=== PATIENT | male | born 1980 | race Caucasian/White ===

== ENCOUNTER 2018-02-21 19:22 | Inpatient (IN) | payer SELFPAY ==
[~2018-02-21] VITALS: Ht 188 cm; Wt 92.0 kg
[~2018-02-21 19:22] MED LIST: DEXAMETHASONE SOD PHOS 4 MG/ML VIAL IV ONE; LIDOCAINE HCL 1% PF 5 ML SYRINGE OTHER ONE; ONDANSETRON HCL 4 MG/2 ML VIAL IV ONE; PHENYLEPH/NS 1000 MCG/10 ML SYR IV ONE; PROPOFOL 200 MG/20 ML AMP IV ONE; SUCCINYLCHOLINE CHLORIDE 100 MG/5 ML SYRINGE IV PUSH ONE
[2018-02-21] MEDS ORDERED: ONDANSETRON HCL 4 MG/2 ML VIAL ONE (19:26)
[2018-02-21] MEDS ORDERED: DIPHTH/TETANUS/ACEL PERTUSSIS (BOOSTER) 0.5 ML VIAL/PFS IM ONE ×2 (19:26→20:30)
[2018-02-21] MEDS ORDERED: ceFAZolin 2 GM PREMIX 50 ML ONE (19:26)
[2018-02-21 19:30] VITALS: O2SAT 100
[2018-02-21] MEDS ORDERED: PROPOFOL 200 MG/20 ML AMP ONE (19:30)
[2018-02-21 19:48] LABS: AUTOMATED NEUTROPHIL # 2.5 TH/MM3 (1.8-7.7); BASOPHIL % 0.8 % (0.0-2.0); EOSINOPHIL # 0.1 TH/MM3 (0-0.4); EOSINOPHIL % 0.9 % (0.0-4.0); HEMATOCRIT 37.7 % (39.0-51.0); HEMOGLOBIN 12.9 GM/DL (13.0-17.0); LYMPH % 44.8 % (9.0-44.0); LYMPHOCYTE # 2.6 TH/MM3 (1.0-4.8); MEAN CELL VOLUME 83.3 FL (80.0-100.0); MEAN CORPUSCULAR HEMOGLOBIN 28.6 PG (27.0-34.0); MEAN CORPUSCULAR HGB CONC 34.3 % (32.0-36.0); MEAN PLATELET VOLUME 8.2 FL (7.0-11.0); MONO % 10.7 % (0.0-8.0); MONOCYTE # 0.6 TH/MM3 (0-0.9); NEUT % 42.8 % (16.0-70.0); PLATELET COUNT 163 TH/MM3 (150-450); RED BLOOD COUNT 4.53 MIL/MM3 (4.50-5.90); RED CELL DISTRIBUTION WIDTH 13.2 % (11.6-17.2); WHITE BLOOD COUNT 5.8 TH/MM3 (4.0-11.0)
[2018-02-21] MEDS ORDERED: IOHEXOL 350 MG/ML 10 ML VIAL (for RAD DIAG) IVCONTRAST ONE (19:49)
[2018-02-21] MEDS ORDERED: SODIUM CHLOR 0.9% 1000 ML INJ 1,000 ML IV SCH ×2 (19:49→20:30)
--- NOTE | 2018-02-21 19:54 | PD ---
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 The patient's only complaint at this time is severe left ankle pain. The patient was noted to have deformity, loss of sensation, and inability to move the left foot on initial arrival of ambulance services. In route to this facility the patient complained of 10 out of 10 pain and was given an total 10 mg of morphine IV in separate doses. The patient then in route to this facility had a return of sensation to his toes and was able to move his toes. The patient denies hitting his head or losing consciousness. He denies having any neck pain, paresthesias in his other extremities, or weakness of his other extremities. The patient arrives by ambulance services without a backboard in place and no cervical collar on. Cervical collar was applied in the trauma bay. The patient denies having any chest pain or shortness of breath. The patient denies having any abdominal pain. The patient is unsure when his tetanus was last updated. [facility] Past Medical History Narrative Medical The patient's past medical history is reportedly none. Past Surgical History Narrative Surgical The patient's past surgical history is reportedly none. Social History Alcohol Use: No Tobacco Use: Yes (1 pack per day) Substance Use: No Allergies-Medications (Allergen,Severity, Reaction): Coded Allergies: No Known Allergies (Unverified , 02/21/18) Comments The patient denies having any known allergies to medications. Narrative Medication The patient denies taking any medications. Review of Systems Except as stated in HPI: all other systems reviewed are Neg Eyes: No: Visual changes HENT: No: Headaches, Neck Stiffness, Neck Pain Cardiovascular: No: Chest Pain or Discomfort, Dyspnea on exertion Respiratory: No: Shortness of Breath Gastrointestinal: No: Nausea, Vomiting, Abdominal Pain Musculoskeletal: Positive: Myalgias, Arthralgias, Limited ROM, Edema, Pain Skin: No Rash Neurologic: Positive: Focal Abnormalities (Decreased movement in the left foot) , Sensory Disturbance, No: Weakness, Change in Mentation, Slurred Speech Endocrine: No: Polydipsia Physical Exam Narrative General: The patient is a well-developed well-nourished male, uncomfortable appearing on arrival, intermittently screaming related to left ankle pain. The patient is brought in on a back board in full c-spine immobilization by emergency services. Head and Neck exam: Head is normocephalic atraumatic. No facial bone tenderness or increased facial bone mobility noted on palpation. Eyes: EOMI, pupils are equal round and reactive to light. Nose: Midline septum with pink mucous membranes Mouth: Dentition is poor throughout his mouth with multiple areas of dental decay. Moist mucus membranes. Posterior oropharynx is not erythematous. No tonsillar hypertrophy. Uvula midline. Airway patent. Neck: The patient has no spinous process tenderness to palpation. No step-off or crepitus. No erythema or ecchymosis. However, the patient has a distracting injury related to his left ankle, therefore a cervical collar was applied in the trauma bay. No tracheal deviation. The trachea appears midline. Cardiovascular: Regular rate and rhythm without murmurs, gallops, or rubs. No pulse deficit to the extremities on simultaneous auscultation and palpation of his radial artery. Lungs: Clear to auscultation bilaterally. No wheezes, rhonchi, or rales. No chest wall tenderness to palpation. No erythema or ecchymosis noted. No crepitus , step off, or flail segment noted. Abdomen: Soft, without tenderness to palpation in all 4 quadrants of the abdomen. No guarding, rebound, or rigidity. No erythema or ecchymosis noted. Extremities: No instability or pain noted on pelvic rock. No clubbing, cyanosis , or edema. 2+ pulses in all 4 extremities. No extremity tenderness or deformity noted on palpation or passive/ active range of motion, except in the area of interest the left ankle, the patient is noted to have an open wound with a piece of bone protruding through a lateral wound on the left ankle. There is skin tenting noted. There is deformity of the left ankle with severe swelling. The dorsalis pedis pulse was not able to be palpated. The patient had dopplerable pulse. The patient had a prolonged capillary refill initially at 4 seconds in that left foot the patient is able to move the toes of the left foot. He reports having tingling sensations in his toes. Back: No spinous process tenderness to palpation. No stepoff or crepitus noted. No costovertebral angle tenderness to palpation. No erythema or ecchymosis. Neurologic Exam: Cranial nerves 2-12 were intact on exam. Strength is 5/5 in all 4 extremities. No sensory deficits noted. The patient is oriented to person , place, time, and situation. Skin Exam: No rash noted. Intact skin that is warm and dry. Data Data Orders Orders Fentanyl Inj (Fentanyl Inj) (02/21/18 19:26) Cefazolin 2 Gm Premix (Ancef 2 Gm Premix (02/21/18 19:) Ondansetron Inj (Zofran Inj) (02/21/18:) I-Stat Profile (02/21/18 19:24) Complete Blood Count With Diff (02/21/18 19:24) Prothrombin Time / Inr (Pt) (02/21/18:24) Act Partial Throm Time (Ptt) (02/21/18 19:24) Type And Screen (02/21/18 19:24) Fibrinogen (02/21/18 19:24) Urinalysis - C+S If Indicated (02/21/18 19:24) Drug Screen, Random Urine (02/21/18 19:24) Chest, Single Ap (02/21/18 19:24) Pelvis, Ap Only (Routine) (02/21/18 19:24) Ct Brain W/O Iv Contrast(Rout) (02/21/18 19:24) Ct Cerv Spine W/O Contrast (02/21/18 19:24) Ct Abd/Pel W Iv Contrast(Rout) (02/21/18 19:24) Ct Thorax/ Chest W Iv Contrast (02/21/18 19:24) Iv Access Insert/Monitor (02/21/18 19:24) Ecg Monitoring (02/21/18 19:24) Oximetry (02/21/18 19:24) Oxygen Administration (02/21/18 19:24) Ed Poc Ultrasound (02/21/18 19:24) Ankle, Limited (Ap&Lat) (02/21/18 ) Ugph-Vav-Ksyysb (Booster) Inj (Boostrix (02/21/18 19:26) Propofol 200 Mg/20 Ml Inj (Diprivan 200 (02/21/18 19:30) Ankle, Limited (Ap&Lat) (02/21/18 ) Ct Thor Spine W Iv Contrast (02/21/18 19:44) Ct Lumb Spine W Iv Contrast (02/21/18 19:44) Admit To Inpatient (02/21/18 ) Vital Signs (Adult) NICCI.QSHIFT (02/21/18 19:49) Intake + Output NICCI.Q8H (02/21/18 19:49) Neuro Checks NICCI.Q4H (02/21/18 19:49) Activity Bed Rest (02/21/18 19:49) Diet Npo (02/22/18 Breakfast) Scd / Fuentes / Foot Pump NICCI.QSHIFT (02/21/18 19:49) Instruction (02/21/18 19:49) Complete Blood Count With Diff (02/22/18 06:00) Comprehensive Metabolic Panel (02/22/18 06:00) Sodium Chlor 0.9% 1000 Ml Inj (Ns 1000 M (02/21/18 19:49) Sodium Chloride 0.9% Flush (Ns Flush) (02/21/18 20:00) Morphine Inj (Morphine Inj) (02/21/18 20:00) Acetamin-Hydrocod 325-5 Mg ([place] 5-325 (02/21/18 20:00) Acetamin-Hydrocod 325-5 Mg ([place] 5-325 (02/21/18 20:00) Enalaprilat Inj (Vasotec Inj) (02/21/18 20:00) Ondansetron Inj (Zofran Inj) (02/21/18 20:00) Pantoprazole Inj (Protonix Inj) (02/21/18 20:00) Magnesium Hydroxide Liq (Milk Of Magnesi (02/21/18 20:00) Consult Orthopedic (02/21/18 ) ^ Initiate Protocol (02/21/18 19:49) Instruction (02/21/18 19:49) Misc Nursing Information (02/21/18 20:00) Chlorhexidine 2% Cloth (Chlorhexidine 2% (02/22/18 04:00) Chlorhexidine 2% Cloth (Chlorhexidine 2% (02/21/18 20:00) Mrsa Pcr Surveillance (02/21/18 19:49) Inpatient Certification (02/21/18 ) Consult Zulema Gts (02/21/18 ) (Hub Use Only)Inp Phy Cons/Ref (02/21/18 ) Admit Order (Ed Use Only) (02/21/18 20:00) Labs Laboratory Tests Test 02/21/18 19:24 02/21/18 19:27 White Blood Count 5.8 TH/MM3 Red Blood Count 4.53 MIL/MM3 Hemoglobin 12.9 GM/DL Hematocrit 37.7 % Mean Corpuscular Volume 83.3 FL Mean Corpuscular Hemoglobin 28.6 PG Mean Corpuscular Hemoglobin Concent 34.3 % Red Cell Distribution Width 13.2 % Platelet Count 163 TH/MM3 Mean Platelet Volume 8.2 FL Neutrophils (%) (Auto) 42.8 % Lymphocytes (%) (Auto) 44.8 % Monocytes (%) (Auto) 10.7 % Eosinophils (%) (Auto) 0.9 % Basophils (%) (Auto) 0.8 % Neutrophils # (Auto) 2.5 TH/MM3 Lymphocytes # (Auto) 2.6 TH/MM3 Monocytes # (Auto) 0.6 TH/MM3 Eosinophils # (Auto) 0.1 TH/MM3 Basophils # (Auto) 0.0 TH/MM3 CBC Comment DIFF FINAL Differential Comment MDM Medical Decision Making Medical Screen Exam Complete: Yes Emergency Medical Condition: Yes Medical Record Reviewed: Yes Differential Diagnosis Intracranial trauma, versus cervical spine trauma, versus intrathoracic trauma, versus intra-abdominal trauma, versus pelvis injury, versus T spine injury, versus L-spine injury, versus left ankle dislocation, versus left ankle fracture with dislocation, versus vascular injury, versus nerve injury of the left ankle and foot Narrative Course During the course of the patient's emergency department visit, the patient's history, examination, and differential diagnosis were reviewed with the patient. The patient was placed on a acute care certified nursing assistant with oximetry and frequent blood pressure monitoring. This patient was called as a level 1 trauma alert prior to arrival by ambulance services. Dr. Pond in the trauma surgeon was notified at 1900 regarding this patient's pending arrival. He was available at the bedside in the trauma bay to assist the patient with me when the patient arrived. The patient had large-bore IVs placed in bilateral upper extremities. An i-STAT with creatinine was ordered, chest x-ray, pelvis x-ray, left ankle x-ray was ordered. The patient was initially provided fentanyl 50 mcg IV 1, Zofran 4 mg IV, Ancef 2 g IV, and normal saline 1 L IV fluid bolus. A bedside E fast ultrasound was done by me. The patient had no evidence of pericardial effusion, hemoperitoneum, or pneumothorax. The patient's laboratory studies were reviewed and remarkable for an i-STAT with creatinine revealed a hemoglobin of 11.9, creatinine 1.1. Radiology studies were reviewed and remarkable for a chest x-ray that showed no acute abnormality. Pelvis x-ray showed no acute abnormality. Left ankle x-ray revealed a comminuted fracture dislocation of the left ankle. The patient verbally consented to procedural sedation for realignment of his left ankle and placement in a splint. The patient was provided propofol 40 mg IV. Traction was applied to the patient's left foot for better alignment of the fracture fragments. A splint was applied by the time study technologist. The patient was given an additional 25 mcg of fentanyl IV for pain. The CT scan of the head, neck, thorax, abdomen and pelvis, T-spine, L-spine was ordered. The patient was accompanied to CT by the trauma surgeon who accepted care of the patient, Dr. Pond. Dr. Pond also spoke to the physician telecom assistant for Dr. Arias regarding this patient's open fracture of the left ankle. The patient's results were discussed with the patient, including the plan of care. I explained that further testing and/ or monitoring is indicated based on the patient's history, examination, and/ or laboratory findings. Therefore, I recommended admission for additional evaluation. The patient expressed understanding and was agreeable with this plan. The patient was admitted to the hospital in guarded condition and sent to a bed under the care of the trauma service. Procedures Procedure Narrative Emergency department E-FAST was performed with patient consent. The curvilinear probe was used in the right upper quadrant/Morison's pouch, suprapubic, left upper quadrant/spleenorenal space, epigastric, parasternal long axis and anterior bilateral chest wall. There was no evidence of peritoneal free fluid, pericardial effusion, or pneumothorax. Physician Communication Physician Communication The patient's case including history, pertinent physical examination findings, and laboratory studies were discussed with Dr. Pond. It was agreed that the patient would be admitted to the trauma service. Diagnosis Primary Impression: Injury resulting from fall from height Additional Impression: Open left ankle fracture Admitting Information Admitting Physician Requests: Admit Ana Lilia Redman MD Feb 21, 2018 19:54
[2018-02-21] MEDS ORDERED: ONDANSETRON HCL 4 MG/2 ML VIAL IV PUSH PRN (20:00)
[2018-02-21] MEDS: PANTOPRAZOLE SODIUM 40 MG VIAL IVP SCH (20:00)
[2018-02-21] MEDS ORDERED: ACETAMINOPHEN/HYDROcodone 325 MG/5 MG TAB PO PRN ×2 (20:00)
[2018-02-21] MEDS ORDERED: MAGNESIUM HYDROXIDE SUSP 30 ML CUP PO PRN (20:00)
[2018-02-21] MEDS ORDERED: MORPHINE SULFATE 4 MG/ML INJ IV PUSH PRN (20:00)
[2018-02-21] MEDS ORDERED: CHLORHEXIDINE GLUCONATE 2 % 1 PACK (2 CLOTHS) TOP PRN (20:00)
[2018-02-21] MEDS ORDERED: ENALAPRILAT 1.25 MG/ML VIAL IV PUSH PRN (20:00)
[2018-02-21] MEDS ORDERED: NURSING INFORMATION XX SCH (20:00)
--- NOTE | 2018-02-21 20:04 | RADRPT ---
EXAM DATE/TIME: 02/21/2018 19:45 [facility] COMPARISON: No previous studies available for comparison. INDICATIONS : Trauma alert, patient fell 16 feet off ladder. RADIATION DOSE: 56.66 CTDIvol (mGy) ; Tabletop CT Head MEDICAL HISTORY : Non-responsive. SURGICAL HISTORY : Non-responsive. ENCOUNTER: Initial ACUITY: 1 day PAIN SCALE: Non-responsive LOCATION: cranial TECHNIQUE: Multiple contiguous axial images were obtained of the head. Using automated exposure control and adj ustment of the mA and/or kV according to patient size, radiation dose was kept as low as reasonably a chievable to obtain optimal diagnostic quality images. DICOM format image data is available electro nically for review and comparison. FINDINGS: CEREBRUM: The ventricles are normal for age. No evidence of midline shift, mass lesion, hemorrhage or acute in farction. No extra-axial fluid collections are seen. POSTERIOR FOSSA: The cerebellum and brainstem are intact. The 4th ventricle is midline. The cerebellopontine angle i s unremarkable. EXTRACRANIAL: The visualized portion of the orbits is intact. SKULL: The calvaria is intact. No evidence of skull fracture. CONCLUSION: Negative noncontrast head CT. Dutch Baez MD on February 21, 2018 at 20:01 Board Certified Radiologist. This report was verified electronically.
--- NOTE | 2018-02-21 20:06 | RADRPT ---
EXAM DATE/TIME: 02/21/2018 19:45 [facility] COMPARISON: No previous studies available for comparison. INDICATIONS : Trauma alert, patient fell 16 feet off ladder. RADIATION DOSE: 19.39 CTDIvol (mGy) MEDICAL HISTORY : Non-responsive. SURGICAL HISTORY : Fusion, cervical. ENCOUNTER: Initial ACUITY: 1 day PAIN SCALE: Non-responsive LOCATION: neck TECHNIQUE: Volumetric scanning of the cervical spine was performed. Multiplanar reconstructions in the sagittal, coronal and oblique axial planes were performed. Using automated exposure control and adjustment o f the mA and/or kV according to patient size, radiation dose was kept as low as reasonably achievable to obtain optimal diagnostic quality images. DICOM format image data is available electronically f or review and comparison. FINDINGS: No fracture or subluxation of the cervical spine. Vertebral bodies have normal height. Mild disc space narrowing with circumferential disc osteophyte complex and left greater than right un covertebral and facet osteoarthritis seen at C3/C4. There is mild left foraminal stenosis at this lev el. Previous discectomy and fusion procedure with interbody and anterior instrumentation at C5/C6 and C6/ C7, both levels appearing solidly fused. CONCLUSION: No fracture or subluxation of the cervical spine. Surgical and degenerative changes as above. Dutch Baez MD on February 21, 2018 at 20:02 Board Certified Radiologist. This report was verified electronically.
--- NOTE | 2018-02-21 20:07 | RADRPT ---
EXAM DATE/TIME: 02/21/2018 19:49 [facility] COMPARISON: No previous studies available for comparison. INDICATIONS : Trauma alert, patient fell 16 feet off ladder. IV CONTRAST: 100 cc Omnipaque 350 (iohexol) IV ; Cumulative dose for multiple exams. RADIATION DOSE: 15.18 CTDIvol (mGy) ; Combined studies - Thorax/Abdomen/Pelvis MEDICAL HISTORY : Non-responsive. SURGICAL HISTORY : Non-responsive. ENCOUNTER: Initial ACUITY: 1 day PAIN SCALE: Non-responsive LOCATION: chest TECHNIQUE: Volumetric scanning of the chest was performed. Using automated exposure control and adjustment of t he mA and/or kV according to patient size, radiation dose was kept as low as reasonably achievable to obtain optimal diagnostic quality images. DICOM format image data is available electronically for review and comparison. Follow-up recommendations for detected pulmonary nodules are based at a minimum on nodule size and pa tient risk factors according to Fleischner Society Guidelines. FINDINGS: LUNGS: There is no consolidation or pneumothorax. No concerning pulmonary nodule is visualized. PLEURA: There is no pleural thickening or pleural effusion. MEDIASTINUM: The heart and great vessels demonstrate no acute abnormality. There is no mediastinal or hilar lymph adenopathy. AXILLAE: Within normal limits. No lymphadenopathy. SKELETAL: Within normal limits for patient age. MISCELLANEOUS: The visualized upper abdominal organs demonstrate no acute abnormality. CONCLUSION: No acute abnormality demonstrated. Dutch Baez MD on February 21, 2018 at 20:04 Board Certified Radiologist. This report was verified electronically.
--- NOTE | 2018-02-21 20:08 | RADRPT ---
EXAM DATE/TIME: 02/21/2018 19:22 [facility] COMPARISON: No previous studies available for comparison. INDICATIONS : Trauma alert. Fall from ladder. MEDICAL HISTORY : Unobtainable. SURGICAL HISTORY : Unobtainable. ENCOUNTER: Initial ACUITY: 1 day PAIN SCORE: Non-responsive. LOCATION: Pelvis. FINDINGS: A single frontal view of the pelvis demonstrates no evidence of fracture. The bony pelvic ring is in tact. Bony mineralization is normal. The soft tissues are intact. CONCLUSION: No evidence of pelvic fracture. Dutch Baez MD on February 21, 2018 at 20:06 Board Certified Radiologist. This report was verified electronically.
--- NOTE | 2018-02-21 20:08 | RADRPT ---
EXAM DATE/TIME: 02/21/2018 19:22 [facility] COMPARISON: No previous studies available for comparison. INDICATIONS : Trauma alert. Fall from ladder. MEDICAL HISTORY : Unobtainable. SURGICAL HISTORY : Unobtainable. ENCOUNTER: Initial ACUITY: 1 day PAIN SCORE: Non-responsive. LOCATION: Bilateral chest FINDINGS: A single view of the chest demonstrates the lungs to be symmetrically aerated without evidence of mas s, infiltrate or effusion. The cardiomediastinal contours are unremarkable. Osseous structures are intact. CONCLUSION: No acute abnormality demonstrated. Dutch Baez MD on February 21, 2018 at 20:05 Board Certified Radiologist. This report was verified electronically.
--- NOTE | 2018-02-21 20:09 | RADRPT ---
EXAM DATE/TIME: 02/21/2018 19:22 [facility] COMPARISON: No previous studies available for comparison. INDICATIONS : Trauma alert. Fall from ladder. MEDICAL HISTORY : Unobtainable. SURGICAL HISTORY : Unobtainable. ENCOUNTER: Initial ACUITY: 1 day PAIN SCORE: Non-responsive. LOCATION: Left ankle. FINDINGS: Extremely comminuted intra-articular fractures are seen of the distal left tibia and fibula. There is medial angulation deformity. I don't convincingly see significant subluxation. CONCLUSION: Severely comminuted intra-articular fractures of the distal left tibia and fibula with medial angulat ion deformity. Dutch Baez MD on February 21, 2018 at 20:06 Board Certified Radiologist. This report was verified electronically.
--- NOTE | 2018-02-21 20:10 | RADRPT ---
EXAM DATE/TIME: 02/21/2018 19:22 [facility] COMPARISON: No previous studies available for comparison. INDICATIONS : Post reduction left ankle. MEDICAL HISTORY : None. SURGICAL HISTORY : None. ENCOUNTER: Subsequent ACUITY: 1 day PAIN SCORE: Non-responsive. LOCATION: Left ankle. FINDINGS: Interval closed reduction and splinting. Extremely comminuted intra-articular fractures are seen of t he distal left tibia and fibula. Decreased medial angulation deformity, now mild. CONCLUSION: Interval closed reduction and splinting. Markedly comminuted intra-articular fractures of the distal left tibia and fibula again noted. Dutch Baez MD on February 21, 2018 at 20:07 Board Certified Radiologist. This report was verified electronically.
[2018-02-21 20:12] LABS: INTERNATIONAL NORMALIZED RATIO 1.1 RATIO; PROTHROMBIN TIME - PATIENT 10.8 SEC (9.8-11.6)
--- NOTE | 2018-02-21 20:12 | RADRPT ---
EXAM DATE/TIME: 02/21/2018 19:49 [facility] COMPARISON: No previous studies available for comparison. INDICATIONS : Trauma alert, patient fell 16 feet off ladder. IV CONTRAST: 100 cc Omnipaque 350 (iohexol) IV ; Cumulative dose for multiple exams. ORAL CONTRAST: No oral contrast ingested. RADIATION DOSE: 15.18 CTDIvol (mGy) ; Combined studies - Thorax/Abdomen/Pelvis MEDICAL HISTORY : Non-responsive. SURGICAL HISTORY : Non-responsive. ENCOUNTER: Initial ACUITY: 1 day PAIN SCALE: Non-responsive LOCATION: abdomen/pelvis TECHNIQUE: Volumetric scanning of the abdomen and pelvis was performed. Using automated exposure control and ad justment of the mA and/or kV according to patient size, radiation dose was kept as low as reasonably achievable to obtain optimal diagnostic quality images. DICOM format image data is available electro nically for review and comparison. FINDINGS: LOWER LUNGS: The visualized lower lungs are clear. LIVER: Homogeneous density without lesion. There is no dilation of the biliary tree. No calcified gallston es. SPLEEN: Normal size without lesion. PANCREAS: Within normal limits. KIDNEYS: Normal in size and shape. 2 mm nonobstructing stone left lower pole. There is no mass, obstructive s tone or hydronephrosis. ADRENAL GLANDS: Within normal limits. VASCULAR: There is no aortic aneurysm. BOWEL/MESENTERY: The stomach, small bowel, and colon demonstrate no acute abnormality. There is no free intraperitone al air or fluid. ABDOMINAL WALL: Within normal limits. RETROPERITONEUM: There is no lymphadenopathy. BLADDER: No wall thickening or mass. REPRODUCTIVE: Within normal limits. INGUINAL: There is no lymphadenopathy or hernia. MUSCULOSKELETAL: No fracture or other acute abnormality of the visualized osseous structures. CONCLUSION: Negative trauma CT of the abdomen and pelvis. Tiny nonobstructing stone of the left kidney incidental ly noted. Dutch Baez MD on February 21, 2018 at 20:09 Board Certified Radiologist. This report was verified electronically.
[2018-02-21] MEDS ORDERED: fentaNYL CITRATE 250 MCG/5 ML AMP ONE (20:17)
[2018-02-21] MEDS ORDERED: GENTAMICIN SULFATE 80 MG/2 ML VIAL ONE (20:25)
[2018-02-21] MEDS ORDERED: VANCOMYCIN HCL 1000 MG VIAL ONE (20:25)
--- NOTE | 2018-02-21 20:26 | RADRPT ---
EXAM DATE/TIME: 02/21/2018 19:49 [facility] COMPARISON: No previous studies available for comparison. INDICATIONS : Trauma alert, patient fell 16 feet off ladder. IV CONTRAST: 100 cc Omnipaque 350 (iohexol) IV ; Cumulative dose for multiple exams. RADIATION DOSE: ; Reconstructed from previous dataset, no dose MEDICAL HISTORY : Non-responsive. SURGICAL HISTORY : Non-responsive. ENCOUNTER: Initial ACUITY: 1 day PAIN SCALE: Non-responsive LOCATION: Paraspinal TECHNIQUE: Volumetric scanning of the lumbar spine was performed. Multiplanar reconstructions in the sagittal, coronal and oblique axial planes were performed. Using automated exposure control and adjustment of the mA and/or kV according to patient size, radiation dose was kept as low as reasonably achievable t o obtain optimal diagnostic quality images. DICOM format image data is available electronically for review and comparison. FINDINGS: CONUS MEDULLARIS: Normal. PARASPINAL SOFT TISSUES: Normal. LUMBAR CORD: Normal. DURAL SAC: Normal. L1-L2: The disc, uncovertebral joints, central canal, foramina, and facets are normal. L2-L3: The disc, uncovertebral joints, central canal, foramina, and facets are normal. L3-L4: The disc, uncovertebral joints, central canal, foramina, and facets are normal. L4 L5 CONCLUSION: Intact lumbar spine. Mild degenerative changes at L4/L5 and L5/S1. Dutch Baez MD on February 21, 2018 at 20:23 Board Certified Radiologist. This report was verified electronically.
--- NOTE | 2018-02-21 20:28 | RADRPT ---
EXAM DATE/TIME: 02/21/2018 19:49 [facility] COMPARISON: No previous studies available for comparison. INDICATIONS : Trauma alert, patient fell 16 feet off ladder. IV CONTRAST: 100 cc Omnipaque 350 (iohexol) IV ; Cumulative dose for multiple exams. RADIATION DOSE: ; Reconstructed from previous dataset, no dose MEDICAL HISTORY : Non-responsive. SURGICAL HISTORY : Non-responsive. ENCOUNTER: Initial ACUITY: 1 day PAIN SCALE: Non-responsive LOCATION: Paraspinal TECHNIQUE: Volumetric scanning of the thoracic spine was performed. Multiplanar reconstructions in the sagittal , coronal and oblique axial planes were performed. Using automated exposure control and adjustment o f the mA and/or kV according to patient size, radiation dose was kept as low as reasonably achievable to obtain optimal diagnostic quality images. DICOM format image data is available electronically fo r review and comparison. FINDINGS: Mild dextroconvex curvature centered around T8/T9. No fracture or subluxation. Vertebral bodies have normal height. There is no cortical break or trabecular disruption. Very mild bilateral costovertebral and facet osteoarthritis seen at essentially all levels. There is also slight disc space narrowing and anterolateral osseous ridging throughout. No perceptible foramin al or spinal stenosis. No evidence of an acute disc herniation. CONCLUSION: Intact thoracic spine. Scoliosis and mild degenerative changes as above. Dutch Baez MD on February 21, 2018 at 20:24 Board Certified Radiologist. This report was verified electronically.
[2018-02-21] MEDS ORDERED: ceFAZolin 2 GM/DEX PREMIX 50 ML IV ONE (20:30)
[2018-02-21] MEDS ORDERED: ceFAZolin 2 GM in NS 100 ML IV ONE (20:30)
[2018-02-21] MEDS ORDERED: GENTAMICIN/SOD CHL 80 MG/100 ML IV ONE (20:30)
[2018-02-21] MEDS ORDERED: HYDROmorphone HCL PF 2 MG/ML VIAL ONE ×3 (20:48→22:38)
[2018-02-21] MEDS ORDERED: Post-op Orders (for Pharmacy) XX ONE (21:45)
[2018-02-21] MEDS ORDERED: ACETAMINOPHEN/HYDROcodone 325 MG/10 MG TAB PO PRN (21:45)
--- NOTE | 2018-02-21 21:50 | PD.OP ---
cc: Jason Pinon MD Operative Report Date of Surgery: Feb 21, 2018 Preoperative Diagnosis: Open left distal tibia and fibula fractures Postoperative Diagnosis: Procedure: Irrigation and debridement of open left distal tibia and fibular fractures, reduction of left tibia and fibular fractures, external fixation left ankle Anesthesia: General Surgeon: Jason Pinon Shooting Gallery Operator(s): Mookie Pretty PA-C The surgical procedure was assisted by my physician assistant housekeeping manager. My P.A. presence was necessary throughout this case for the manipulation and positioning of the surgical extremity. My P.A. was assisting me throughout the duration of this procedure. The skill set of a physician assistant housekeeping manager was medically necessary to complete this procedure. During the surgical case the surgical scheduler was working at the back table and the physician assistant housekeeping manager was directly assisting me. Operation and Findings: Implants used: Orthofix Details of procedure: This patient sustained an injury from a fall resulting in unstable open fractures of the left distal tibia and fibula. Patient was seen and evaluated preoperatively and found to have too much swelling to proceed with open reduction internal fixation. Risk and benefits of surgery were discussed in depth with patient and informed consent was confirmed. Surgical site was marked. Patient was brought to operating room and placed on the OR table. Patient was given IV sedation and GETA. Patient received IV antibiotics and timeout procedure was performed. Operative leg was prepped with alcohol followed by Hibiclens and draped in the usual sterile fashion.resulting in left tibia-fibula fractures. Timeout procedure was performed. The procedure began with irrigation debridement of open fracture. There was a 1 cm opening over the fibular fractures with bone exposed. This laceration was extended proximally and distally. There was a small amount of visible contamination in the wound. Curettes and rongeurs were used to debride soft tissue and bone. All foreign material was carefully excised. After thorough debridement of the open fibula fracture, the wound was thoroughly irrigated with 3 L of sterile saline. At this point the wound appeared to be very clean. Next, attention was turned towards placement of external fixation. Two percutaneous incisions were made over the tibia. Pin sites were pre-drilled. Orthofix were placed from anterior to posterior in the tibia shaft. An additional transfixion pin was placed through the calcaneus. Pins were also placed in the first and fifth metatarsals. An external fixator was now constructed. Fluoroscopy was used to confirm appropriate pin placement Next attention was turned to traction with manipulation of the leg. The fracture was manipulated under fluoroscopy. Excellent reduction was achieved. With the fracture held in reduced position, the external fixator was tightened. Fluoroscopy confirmed a well-placed external fixation with well-aligned fractures. Sterile dressings were applied. The patient was awakened and transferred to Recovery in stable condition. The soft tissue was reevaluated. Patient did have swelling around the ankle and calf but compartments were soft and compressible with no signs of compartment syndrome. Jason Pinon MD Feb 21, 2018 21:50
[2018-02-21] MEDS: KETOROLAC TROMETHAMINE 30 MG/ML (IVP) VIAL IVP SCH (22:00)
[2018-02-21] MEDS ORDERED: ACETAMINOPHEN 1000 MG/100 ML 100 ML IV ONE ×2 (22:00→22:10)
[2018-02-21] MEDS ORDERED: *MEPERIDINE 25 MG INJ VIAL PERIprocedural Use ONLY ONE (22:05)
[2018-02-21] MEDS: LACTATED RINGER'S 1000 ML INJ 1,000 ML IV SCH (22:06)
--- NOTE | 2018-02-21 22:07 | RADRPT ---
EXAM DATE/TIME: 02/21/2018 21:36 [facility] COMPARISON: No previous studies available for comparison. INDICATIONS : External fixation of the left ankle. MEDICAL HISTORY : Non-responsive SURGICAL HISTORY : Non-responsive ENCOUNTER: Subsequent ACUITY: 1 day PAIN SCORE: Non-responsive. LOCATION: Left ankle FINDINGS: Interim external fixation of extremely comminuted intra-articular fractures of the distal left tibia and fibula. Alignment is improved, near-anatomic. CONCLUSION: External fixation of comminuted distal tibia and fibula fractures. Near-anatomic alignment. Dutch Baez MD on February 21, 2018 at 22:03 Board Certified Radiologist. This report was verified electronically.
[2018-02-21] MEDS ORDERED: *morphine SULFATE 8 MG/ML PERIprocedure ONLY ONE (22:14)
--- NOTE | 2018-02-21 22:27 | MB ---
cc: Jason Arias MD DATE: 02/21/2018 REASON FOR CONSULTATION: Open left distal tibia and fibula fractures CONSULTING PHYSICIAN: Juan Jose Roberts MD HISTORY OF PRESENT ILLNESS: This patient Dutch Paula is an approximately 38-year-old male who presented to the emergency room. He was working on scaffolding approximately 16 feet high. He lost his balance. 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 He landed on his left leg and ankle. He had immediate left ankle pain and deformity. He is unable to stand or ambulate. He presented to the Emergency Room where x-rays revealed comminuted left distal tibia and fibula fractures. There was an opening over the fibula with exposed bone. He has had a history of a cervical fusion. He denies any current neck pain. He does have some chronic ongoing neck pain. He denies loss of consciousness. Pain is worse with movement of his leg. PAST MEDICAL HISTORY: Illnesses: History of cervical fusion. PAST SURGICAL HISTORY: Cervical fusion. ALLERGIES: NO KNOWN DRUG ALLERGIES. MEDICATIONS: None. SOCIAL HISTORY: The patient smokes a pack a day. He denies alcohol or drug use. REVIEW OF SYSTEMS: The patient denies current headache, visual changes, neck pain, chest pain, shortness of breath, abdominal pain, nausea, vomiting, recent weight loss, fevers or chills, ____. Extremities he complains of severe left ankle pain. He does have intermittent chronic neck pain. FAMILY HISTORY: Noncontributory. PHYSICAL EXAMINATION: GENERAL: The patient is a thin 38-year-old male who is awake and alert. He appears to be in moderate discomfort. He appears well-developed, well-nourished. VITAL SIGNS: Please see emergency room flow sheet for complete list of the patient's vitals. This was reviewed. HEENT: Head: The patient is normocephalic. Pupils are equal. NECK: Soft, nontender. The trachea is in the midline. The patient is in a C-collar. ABDOMEN: Soft, nontender, nondistended. EXTREMITIES: Examination of bilateral upper extremities reveals no obvious pain or deformity with shoulder, elbow and wrist motion. He has intact sensation in all fingers. He has good cap refill all fingers. Skin is intact. Radial pulses are palpable. Examination of right leg reveals no pain with hip, knee or ankle motion. Skin is intact. Dorsalis pedis pulses palpable. Sensation is intact. Examination of left leg reveals no pain or tenderness of his hip or knee. He is diffusely tender around the ankle. There is obvious deformity of the ankle. There is a 1 cm opening over the distal fibula with exposed bone. Dorsalis pedis pulses palpable. He has good cap refill in his toes. LABORATORY DATA: The patient has a white blood cell count of 5.8, hematocrit of 37.7, platelet count of 163. INR of 1.1, BUN of 14, creatinine is 1.1. IMPRESSION: 1. Open left distal tibia and fibula fractures. 2. Smoking dependence. PLAN: Treatment options were discussed with the patient. At this point, I would recommend irrigation and debridement of open fracture, followed by reduction of distal tibia and fibula fractures with external fixation. The patient will need additional surgery for open reduction internal fixation of the distal tibia and fibula fractures, once soft tissue is improved. I explained to him that this is a severe injury for an ankle. His ankle will never be 100% normal after this injury. He will likely develop stiffness, pain and posttraumatic arthritis. All questions were answered. I will plan on surgery tonight. A mid-level provider in my office, nurse practitioner or PA, may see this patient on a follow-up basis and continue to implement the objective of this plan including: Starting or adjusting medications, injections of muscle, tendon, bursa or joints, cast application, orthotic or brace application, physical therapy, further radiographic studies including x-ray, MRI, CT, ultrasounds or bone scan, vascular studies, neurologic studies, or other specialist consultations, and proceeding with surgical management as appropriate. Jason Arias MD SUNG/rt , 09:54 PM , 10:26 PM
[2018-02-21] MEDS ORDERED: DO NOT ADM ANY ANTICOAGULANT DRUGS PRN (22:30)
[2018-02-21] MEDS ORDERED: *hydrOXYzine 25 MG VIAL PERIprocedural Use ONLY IM ONE (22:36)
[2018-02-21] MEDS ORDERED: HYDROmorphone HCL PF 2 MG/ML VIAL IV ONE (23:15)
[2018-02-22 00:15] VITALS: BP 136/72; PULSE 79; RESP 16; TEMP 97.6; O2SAT 97
[2018-02-22] MEDS: MORPHINE SULFATE 4 MG/ML INJ IV PUSH PRN ×5 (01:55→18:19)
--- NOTE | 2018-02-22 02:34 | RADRPT ---
EXAM DATE/TIME: 02/22/2018 02:10 [facility] COMPARISON: ANKLE LEFT LIMITED (AP&LAT), February 21, 2018, 19:22. INDICATIONS : Post operative left ankle. RADIATION DOSE: 16.51 CTDIvol (mGy) MEDICAL HISTORY : Non-responsive. SURGICAL HISTORY : Non-responsive. ENCOUNTER: Initial ACUITY: 1 day PAIN SCALE: 8/10 LOCATION: Left ankle TECHNIQUE: Volumetric scanning of the ankle was performed. Using automated exposure control and adjustment of t he mA and/or kV according to patient size, radiation dose was kept as low as reasonably achievable to obtain optimal diagnostic quality images. DICOM format image data is available electronically for review and comparison. FINDINGS: There is a severely comminuted fracture of the distal tibia with articular bone fragments displaced i nto the distal shaft. There is abnormal widening of the ankle joint. Fracture is displaced slightly d istally. There is also a comminuted distal fibular fracture mostly above the level of the ankle joint . There is probable small avulsion fracture of the anteromedial and posteromedial talus. CONCLUSION: 1. Severely comminuted intra-articular fracture of the distal tibia and also comminuted distal fibula r fracture. Small avulsion fractures of the talus laterally. Ricardo Álvarez MD on February 22, 2018 at 2:27 Board Certified Radiologist. This report was verified electronically.
[2018-02-22] MEDS: ceFAZolin 2 GM PREMIX 50 ML IV SCH ×3 (03:51→20:21)
[2018-02-22 04:00] VITALS: BP 122/70; PULSE 75; RESP 18; TEMP 97.3; O2SAT 100
[2018-02-22] MEDS ORDERED: CHLORHEXIDINE GLUCONATE 2 % 1 PACK (2 CLOTHS) TOP SCH (04:00)
[2018-02-22 04:44] LABS: BASOPHIL % 0.1 % (0.0-2.0); EOSINOPHIL % 0.1 % (0.0-4.0); HEMATOCRIT 34.5 % (39.0-51.0); HEMOGLOBIN 11.8 GM/DL (13.0-17.0); LYMPH % 6.7 % (9.0-44.0); LYMPHOCYTE # 0.5 TH/MM3 (1.0-4.8); MEAN CELL VOLUME 83.9 FL (80.0-100.0); MEAN CORPUSCULAR HEMOGLOBIN 28.7 PG (27.0-34.0); MEAN CORPUSCULAR HGB CONC 34.2 % (32.0-36.0); MEAN PLATELET VOLUME 8.9 FL (7.0-11.0); MONO % 5.4 % (0.0-8.0); MONOCYTE # 0.4 TH/MM3 (0-0.9); NEUT % 87.7 % (16.0-70.0); PLATELET COUNT 131 TH/MM3 (150-450); RED BLOOD COUNT 4.12 MIL/MM3 (4.50-5.90)
[2018-02-22 05:02] LABS: ALBUMIN 3.3 GM/DL (3.4-5.0); ALT (GPT) 31 U/L (12-78); AST (GOT) 18 U/L (15-37); BICARBONATE 26.5 MEQ/L (21.0-32.0); BLOOD UREA NITROGEN 12 MG/DL (7-18); CALCIUM 7.7 MG/DL (8.5-10.1); CHLORIDE 109 MEQ/L (98-107); CREATININE 1.06 MG/DL (0.60-1.30); GLOMERULAR FILTRATION RATE 60 ML/MIN (>89); GLUCOSE,RANDOM 129 MG/DL (74-106); SODIUM (NA) 143 MEQ/L (136-145)
[2018-02-22 05:04] LABS: ALKALINE PHOSPHATASE 54 U/L (45-117); TOTAL BILIRUBIN ADULT 0.3 MG/DL (0.2-1.0); TOTAL PROTEIN 5.9 GM/DL (6.4-8.2)
[2018-02-22] MEDS: KETOROLAC TROMETHAMINE 30 MG/ML (IVP) VIAL IVP SCH ×3 (06:42→20:22)
[2018-02-22] MEDS: GENTAMICIN 80 MG PREMIX 100 ML IV SCH ×3 (06:43→20:22)
--- NOTE | 2018-02-22 07:13 | PD.ORT.PN ---
Subjective Subjective Remarks POD 1 s/p I&D with application of exfix left ankle reports pain. resting comfortably currently Objective Vitals Vital Signs Date Time Temp Pulse Resp B/P (MAP) Pulse Ox O2 Delivery O2 Flow Rate FiO2 02/22/18 04:00 97.3 75 18 122/70 (87) 100 02/22/18 00:15 97.6 79 16 136/72 (93) 97 02/21/18 23:20 52 18 163/77 (105) 100 Nasal Cannula 3 02/21/18 23:00 67 18 138/75 (96) 100 Nasal Cannula 3 02/21/18 22:45 82 18 148/67 (94) 100 Nasal Cannula 3 02/21/18 22:30 86 18 156/72 (100) 100 Nasal Cannula 3 02/21/18 22:15 83 18 129/81 (97) 100 Nasal Cannula 3 02/21/18 22:02 98.1 93 18 131/70 (90) 97 Nasal Cannula 3 02/21/18 19:30 100 2.00 02/21/18 19:30 100 I/O 02/21/18 02/21/18 02/21/18 02/22/18 02/22/18 02/22/18 07:00 15:00 23:00 07:00 15:00 23:00 Intake Total 900 ml 560 ml Output Total 10 ml 600 ml Balance 890 ml -40 ml Intake Oral 560 ml IV Total 900 ml Output Urine Total 600 ml Estimated Blood Loss 10 ml # Voids 1 # Bowel Movements 0 Result Diagram: 02/22/18 0400 02/22/18 0400 Other Results Laboratory Tests Test 02/21/18 19:27 Prothromb Time International Ratio 1.1 RATIO Prothrombin Time 10.8 SEC (9.8-11.6) Imaging Last 24 hours Impressions [address] Spine CT 02/21/181943 Signed Impressions: Service Date/Time: Wednesday, February 21, 2018 19:49 - CONCLUSION: Intact thoracic spine. Scoliosis and mild degenerative changes as above. Dutch Baez MD Lumbar Spine CT 02/21/181943 Signed Impressions: Service Date/Time: Wednesday, February 21, 2018 19:49 - CONCLUSION: Intact lumbar spine. Mild degenerative changes at L4/L5 and L5/S1. Dutch Baez MD Pelvis X-Ray 02/21/181923 Signed Impressions: Service Date/Time: Wednesday, February 21, 2018 19:22 - CONCLUSION: No evidence of pelvic fracture. Dutch Baez MD Head CT 02/21/181923 Signed Impressions: Service Date/Time: Wednesday, February 21, 2018 19:45 - CONCLUSION: Negative noncontrast head CT. Dutch Baez MD Chest X-Ray 02/21/181923 Signed Impressions: Service Date/Time: Wednesday, February 21, 2018 19:22 - CONCLUSION: No acute abnormality demonstrated. Dutch Baez MD Chest CT 02/21/181923 Signed Impressions: Service Date/Time: Wednesday, February 21, 2018 19:49 - CONCLUSION: No acute abnormality demonstrated. Dutch Baez MD Cervical Spine CT 02/21/181923 Signed Impressions: Service Date/Time: Wednesday, February 21, 2018 19:45 - CONCLUSION: No fracture or subluxation of the cervical spine. Surgical and degenerative changes as above. Dutch Baez MD Abdomen/Pelvis CT 02/21/181923 Signed Impressions: Service Date/Time: Wednesday, February 21, 2018 19:49 - CONCLUSION: Negative trauma CT of the abdomen and pelvis. Tiny nonobstructing stone of the left kidney incidentally noted. Dutch Baez MD Objective Remarks LLE: +exfix. pin sites clean. traumatic wound shows evidence of drainage. nvi Assessment & Plan Assessment and Plan 1) Left Tibial Pilon and distal fibula fxs s/p Exfix and I&D - POD 1 -NWb -elevate -Ice -pin care BID -daily dressing changes of traumatic wound -swelling no appropriate for surgery at this time -will likely be 5-7 days before swelling appropriate -will continue to monitor Mookie Pretty/First Obey PIERCE Feb 22, 2018 07:13
[2018-02-22 08:00] VITALS: BP 119/69; PULSE 64; RESP 12; TEMP 97.6; O2SAT 99
[2018-02-22] MEDS: GABAPENTIN 300 MG CAP PO SCH ×3 (08:42→17:39)
[2018-02-22] MEDS: DOCUSATE SODIUM 50 MG/SENNA 8.6 MG TAB PO SCH ×2 (08:42→20:22)
[2018-02-22] MEDS: ENOXAPARIN SODIUM 40 MG/0.4 ML SYRINGE SQ SCH (08:43)
--- NOTE | 2018-02-22 11:46 | HHI.PR ---
Subjective Subjective Notes PTD: 1 Patient OOB in recliner chair. No distress noted. Patient states pain is "8-9/10." "The [place] does not help too much." Visitor at bedside asking, "can't you give him something else?" Patient wants to go home, since reversal of ex-fix will not be for another week due to swelling. Objective Vitals/I&O Vital Signs Date Time Temp Pulse Resp B/P (MAP) Pulse Ox O2 Delivery O2 Flow Rate FiO2 02/22/18 08:00 97.6 64 12 119/69 (86) 99 02/21/18 23:20 Nasal Cannula 3 Labs Laboratory Tests Test 02/21/18 19:24 02/21/18 19:27 02/22/18 04:00 02/22/18 10:45 Bedside Hemoglobin 11.9 Bedside Hematocrit 35.0 Bedside Sodium 139 Bedside Potassium 3.3 Bedside Chloride 103 Bedside Blood Urea Nitrogen 14 Bedside Creatinine 1.1 Bedside Glucose 95 White Blood Count 5.8 8.0 Red Blood Count 4.53 4.12 Hemoglobin 12.9 11.8 Hematocrit 37.7 34.5 Mean Corpuscular Volume 83.3 83.9 Mean Corpuscular Hemoglobin 28.6 28.7 Mean Corpuscular Hemoglobin Concent 34.3 34.2 Red Cell Distribution Width 13.2 13.0 Platelet Count 163 131 Mean Platelet Volume 8.2 8.9 Neutrophils (%) (Auto) 42.8 87.7 Lymphocytes (%) (Auto) 44.8 6.7 Monocytes (%) (Auto) 10.7 5.4 Eosinophils (%) (Auto) 0.9 0.1 Basophils (%) (Auto) 0.8 0.1 Neutrophils # (Auto) 2.5 7.0 Lymphocytes # (Auto) 2.6 0.5 Monocytes # (Auto) 0.6 0.4 Eosinophils # (Auto) 0.1 0.0 Basophils # (Auto) 0.0 0.0 CBC Comment DIFF FINAL DIFF FINAL Differential Comment Prothrombin Time 10.8 Prothromb Time International Ratio 1.1 Activated Partial Thromboplast Time 22.6 Fibrinogen 185 Blood Urea Nitrogen 12 Creatinine 1.06 Random Glucose 129 Total Protein 5.9 Albumin 3.3 Calcium Level 7.7 Alkaline Phosphatase 54 Aspartate Amino Transf (AST/SGOT) 18 Alanine Aminotransferase (ALT/SGPT) 31 Total Bilirubin 0.3 Sodium Level 143 Potassium Level 4.0 Chloride Level 109 Carbon Dioxide Level 26.5 Anion Gap 8 Estimat Glomerular Filtration Rate 60 Radiology Last 48 hours Impressions Thoracic Spine CT 02/21/181943 Signed Impressions: Service Date/Time: Wednesday, February 21, 2018 19:49 - CONCLUSION: Intact thoracic spine. Scoliosis and mild degenerative changes as above. Dutch Baez MD Lumbar Spine CT 02/21/181943 Signed Impressions: Service Date/Time: Wednesday, February 21, 2018 19:49 - CONCLUSION: Intact lumbar spine. Mild degenerative changes at L4/L5 and L5/S1. Dutch Baez MD Pelvis X-Ray 02/21/181923 Signed Impressions: Service Date/Time: Wednesday, February 21, 2018 19:22 - CONCLUSION: No evidence of pelvic fracture. Dutch Baez MD Head CT 02/21/181923 Signed Impressions: Service Date/Time: Wednesday, February 21, 2018 19:45 - CONCLUSION: Negative noncontrast head CT. Dutch Baez MD Chest X-Ray 02/21/181923 Signed Impressions: Service Date/Time: Wednesday, February 21, 2018 19:22 - CONCLUSION: No acute abnormality demonstrated. Dutch Baez MD Chest CT 02/21/181923 Signed Impressions: Service Date/Time: Wednesday, February 21, 2018 19:49 - CONCLUSION: No acute abnormality demonstrated. Dutch Baez MD Cervical Spine CT 02/21/181923 Signed Impressions: Service Date/Time: Wednesday, February 21, 2018 19:45 - CONCLUSION: No fracture or subluxation of the cervical spine. Surgical and degenerative changes as above. Duthc Baez MD Abdomen/Pelvis CT 02/21/181923 Signed Impressions: Service Date/Time: Wednesday, February 21, 2018 19:49 - CONCLUSION: Negative trauma CT of the abdomen and pelvis. Tiny nonobstructing stone of the left kidney incidentally noted. Dutch Baez MD Lower Extremity CT 02/21/18 0000 Signed Impressions: Service Date/Time: Thursday, February 22, 2018 02:10 - CONCLUSION: 1. Severely comminuted intra-articular fracture of the distal tibia and also comminuted distal fibular fracture. Small avulsion fractures of the talus laterally. Ricardo Álvarez MD Ankle X-Ray 02/21/18 0000 Signed Impressions: Service Date/Time: Wednesday, February 21, 2018 21:36 - CONCLUSION: External fixation of comminuted distal tibia and fibula fractures. Near-anatomic alignment. Dutch Baez MD Ankle X-Ray 02/21/18 0000 Signed Impressions: Service Date/Time: Wednesday, February 21, 2018 19:22 - CONCLUSION: Interval closed reduction and splinting. Markedly comminuted intra-articular fractures of the distal left tibia and fibula again noted. Dutch Baez MD Ankle X-Ray 02/21/18 0000 Signed Impressions: Service Date/Time: Wednesday, February 21, 2018 19:22 - CONCLUSION: Severely comminuted intra-articular fractures of the distal left tibia and fibula with medial angulation deformity. Dutch Baez MD Narrative Exam GENERAL: This is a 38 year old male OOB in a chair. No distress noted. SKIN: Warm and dry. HEAD: Atraumatic. Normocephalic. EYES: PERRLA ENT: No nasal bleeding or discharge. Mucous membranes pink and moist. NECK: Trachea midline. No JVD. CARDIOVASCULAR: Regular rate and rhythm. RESPIRATORY: No accessory muscle use. Lungs are clear to auscultation. Breath sounds equal bilaterally. No distress or dyspnea. GASTROINTESTINAL: BS + x 4 quads. Abdomen soft, non-tender, nondistended. MUSCULOSKELETAL: Extremities without cyanosis, or edema. Left ankle ex-fix in place, wrapped with Karl bandage. Elevated on pillow. + peripheral pulses x 4 extremities. Warm with good capillary refill and sensation. MAEW. NEUROLOGICAL: Awake and alert. Normal speech and pattern. A/P Problem List: (1) Open left ankle fracture ICD Codes: S82.892B - Other fracture of left lower leg, initial encounter for open fracture type I or II Status: Acute (2) Injury resulting from fall from height ICD Codes: W17.89XA - Other fall from one level to another, initial encounter Status: Acute Assessment and Plan KLETSEL DEHE WINTUN: This is a 38-year-old male who is a fall. He fell from scaffolding approximately 16 feet high. He landed on his left foot. INJURIES: LEFT distal tib-fib fx LEFT ankle fx/dislocation *LEFT kidney stone PMHx: smoker Procedures: 02/21: LEFT ankle reduced in ED 02/21: LEFT ankle I&D w/ ex-fix placement Consults: Orthopedics. Case management. Diet: Regular diet. Tolerating po diet. Encourage good po intake with each meal. Pulmonary: Encourage good pulmonary toileting. IS at bedside and pt encouraged to use. Rationale for use explained to patient, and verbalized understanding. PAIN Management: DC C[place]adia. Oxycodone 5-10 mg q 4h. Morphine 4 mg q 3h. Added Neurontin 300 mg TID. Toradol 15 mg q 8h. Added OFIRMEV x 24 hrs Activity: OOB. PT and OT ordered. (NWB LLE) GI prophylaxis: Protonix 40 mg IV QD Bowel regimen: Korin-colace and MOM. LBM: 0 DVT prophylaxis: Mechanical VTE with SCDs. Chemical management with Lovenox 40 mg QD SQ. DC Planning: Case management consulted for assistance with final discharge disposition. Emotional support provided to patient and family at bedside and plan of care discussed. Discussed with RN at bedside. Discussed pt condition and plan of care with collaborating trauma surgeon. Patient is hemodynamically stable and being managed on the med/surg floor. The trauma team will round each day, and evaluate plan of care on a daily basis. LEFT distal tib-fib fx LEFT ankle fx/dislocation Orthopedics consulted and assisting in management and care 02/21: LEFT ankle reduced in ED 02/21: LEFT ankle I&D w/ ex-fix placement *It will be 5-7 days before surgery can be completed due to swelling. Collaborated with orthopedics PA -made him aware that patient would like to convalesce at home, and then return for surgery next week. Orthopedics would like patient to stay in the hospital through the weekend to be evaluated for surgery Supportive care Pain management Pain care per orthopedics IV antibiotics per orthopedics Encourage out of bed PT and OT ordered Lovenox for DVT prophylaxis Problem Qualifiers (1) Open left ankle fracture: Mary Mason Feb 22, 2018 11:46 am
[2018-02-22 11:52] LABS: BILIRUBIN, URINE NEG (NEG); BLOOD, URINE NEG (NEG); GLUCOSE,URINE NEG (NEG); KETONE, URINE NEG (NEG); MUCUS URINE FEW /lpf (OCC); NITRITE,URINE NEG (NEG); PH, URINE 6.5 (5.0-8.5); URINE COLOR YELLOW (YELLW/STRAW); URINE LEUKOCYTE ESTERASE NEG (NEG)
[2018-02-22 12:00] VITALS: BP 117/68; PULSE 74; RESP 16; TEMP 97.4; O2SAT 98
[2018-02-22] MEDS ORDERED: MAGN30S PO (12:46)
[2018-02-22] MEDS ORDERED: PERI PO (12:46)
[2018-02-22] MEDS: ACETAMINOPHEN 1000 MG/100 ML 100 ML IV SCH ×3 (15:17→23:59)
[2018-02-22 16:00] VITALS: BP 117/66; PULSE 57; RESP 16; TEMP 98; O2SAT 99
[2018-02-22] MEDS: LACTATED RINGER'S 1000 ML INJ 1,000 ML IV SCH ×2 (18:47→21:40)
[2018-02-22] MEDS: MAGNESIUM HYDROXIDE SUSP 30 ML CUP PO SCH ×2 (18:47→20:22)
[2018-02-22 19:52] VITALS: BP 132/75; PULSE 82; RESP 18; TEMP 97.4; O2SAT 99
[2018-02-22] MEDS: PANTOPRAZOLE SODIUM 40 MG VIAL IVP SCH (20:22)
--- NOTE | 2018-02-22 21:10 | MH ---
cc: Juan Jose Roberts MD, Joel L MD DATE OF ADMISSION: 02/21/2018 HISTORY OF PRESENT ILLNESS: This is a patient who was brought in as a trauma level 1 after falling 16 feet off a scaffold. He came in sitting up on a gurney complaining of left ankle pain. He denies loss of consciousness. Denied chest pain or shortness of breath. He complains of decreased sensation in his left foot. No abdominal pain. PAST MEDICAL HISTORY: Negative. PAST SURGICAL HISTORY: Negative. MEDICATIONS: The patient is on no chronic medication. SOCIAL HISTORY: He does smoke cigarettes daily. Denies alcohol use. REVIEW OF SYSTEMS: Significant for above, all other review negative. PHYSICAL EXAMINATION: GENERAL: The patient is lying in a stretcher in distress secondary to pain. HEENT: Pupils are 3 and reactive. Trachea is midline. NECK: Without JVD. LUNGS: Respirations clear. CARDIOVASCULAR: Increased regular. GASTROINTESTINAL: Abdomen is soft, nontender. MUSCULOSKELETAL: He has deformity to his left leg at his ankle with a puncture wound and bone protruding. He has palpable pulse distally. BACK: No step-offs. NEUROLOGIC: Nonfocal. IMAGING STUDIES CT of the head negative. CT of the cervical spine, no traumatic injury. CT of the chest, no visible visceral injury. CT of the abdomen and pelvis negative. X-ray of his left foot reveals distal tib-fib fracture dislocation. ASSESSMENT: This is a patient status post fall with an open fracture of the left distal tib-fib. PLAN: The patient is being admitted. Orthopedics has been consulted. The patient is to receive IV antibiotics. We will provide pain management and monitor neurological and neurovascular status. MD GLORY Peres/ , 08:55 PM , 09:09 PM
[2018-02-23 00:52] VITALS: BP 137/79; PULSE 75; RESP 16; TEMP 97.8; O2SAT 96
[2018-02-23] MEDS: KETOROLAC TROMETHAMINE 30 MG/ML (IVP) VIAL IVP SCH ×3 (04:16→22:08)
[2018-02-23] MEDS: ceFAZolin 2 GM PREMIX 50 ML IV SCH ×3 (04:17→19:57)
[2018-02-23] MEDS: GENTAMICIN INJ 80 MG in SODIUM CHLORIDE 0.9% INJ 100 ML IV SCH ×3 (05:23→19:57)
[2018-02-23] MEDS: ACETAMINOPHEN 1000 MG/100 ML 100 ML IV SCH ×3 (06:07→18:23)
--- NOTE | 2018-02-23 07:15 | PD.ORT.PN ---
Subjective Subjective Remarks POD 2 s/p I&D with application of exfix left ankle reports pain. resting comfortably currently. nurse reports significant increase in pain yesterday evening and significant increase in swelling. reoprts that has improved overnight Objective Vitals Vital Signs Date Time Temp Pulse Resp B/P (MAP) Pulse Ox O2 Delivery O2 Flow Rate FiO2 02/23/18 00:52 97.8 75 16 137/79 (98) 96 02/22/18 19:52 97.4 82 18 132/75 (94) 99 02/22/18 16:00 98.0 57 16 117/66 (83) 99 02/22/18 12:00 97.4 74 16 117/68 (84) 98 02/22/18 08:00 97.6 64 12 119/69 (86) 99 I/O 02/22/18 02/22/18 02/22/18 02/23/18 02/23/18 02/23/18 07:00 15:00 23:00 07:00 15:00 23:00 Intake Total 560 ml 150 ml 1220 ml Output Total 600 ml 550 ml Balance -40 ml 150 ml 670 ml Intake Oral 560 ml 1020 ml IV Total 150 ml 200 ml Output Urine Total 600 ml 550 ml # Voids 1 # Bowel Movements 0 Result Diagram: 02/22/18 0400 02/22/18 0400 Imaging Last 24 hours Impressions Thoracic Spine CT 02/21/181943 Signed Impressions: Service Date/Time: Wednesday, February 21, 2018 19:49 - CONCLUSION: Intact thoracic spine. Scoliosis and mild degenerative changes as above. Dutch Baez MD Lumbar Spine CT 02/21/181943 Signed Impressions: Service Date/Time: Wednesday, February 21, 2018 19:49 - CONCLUSION: Intact lumbar spine. Mild degenerative changes at L4/L5 and L5/S1. Dutch Baez MD Pelvis X-Ray 02/21/181923 Signed Impressions: Service Date/Time: Wednesday, February 21, 2018 19:22 - CONCLUSION: No evidence of pelvic fracture. Dutch Baez MD Head CT 02/21/181923 Signed Impressions: Service Date/Time: Wednesday, February 21, 2018 19:45 - CONCLUSION: Negative noncontrast head CT. Dutch Baez MD Chest X-Ray 02/21/181923 Signed Impressions: Service Date/Time: Wednesday, February 21, 2018 19:22 - CONCLUSION: No acute abnormality demonstrated. Dutch Baez MD Chest CT 02/21/181923 Signed Impressions: Service Date/Time: Wednesday, February 21, 2018 19:49 - CONCLUSION: No acute abnormality demonstrated. Dutch Baez MD Cervical Spine CT 02/21/181923 Signed Impressions: Service Date/Time: Wednesday, February 21, 2018 19:45 - CONCLUSION: No fracture or subluxation of the cervical spine. Surgical and degenerative changes as above. Dutch Baez MD Abdomen/Pelvis CT 02/21/181923 Signed Impressions: Service Date/Time: Wednesday, February 21, 2018 19:49 - CONCLUSION: Negative trauma CT of the abdomen and pelvis. Tiny nonobstructing stone of the left kidney incidentally noted. Dutch Baez MD Objective Remarks LLE: +exfix. pin sites clean. traumatic wound shows evidence of drainage. nvi. 3 + swelling of lower ankle and foot. skin is tight. +cap refill. Assessment & Plan Assessment and Plan 1) Left Tibial Pilon and distal fibula fxs s/p Exfix and I&D - POD 2 -NWb -elevate -Ice -pin care BID -daily dressing changes of traumatic wound -swelling not appropriate for surgery at this time -swelling and pain not controlled enough to be discharged home -if swelling and pain improve, patient likely able to be discharged home and managed outpatient until swelling appropriate for surgery. however, would want to wait through the weekend before that happens. -will likely be 5-7 days before swelling appropriate for surgery -will continue to monitor Mookie Pretty PA/[employer] PA Feb 23, 2018 07:15
[2018-02-23 08:00] VITALS: BP 143/85; PULSE 74; RESP 18; TEMP 97.7; O2SAT 97
[2018-02-23] MEDS: MAGNESIUM HYDROXIDE SUSP 30 ML CUP PO SCH ×2 (08:12→19:58)
[2018-02-23] MEDS: DOCUSATE SODIUM 50 MG/SENNA 8.6 MG TAB PO SCH ×2 (08:13→19:57)
[2018-02-23] MEDS: GABAPENTIN 300 MG CAP PO SCH ×2 (08:13→12:08)
[2018-02-23] MEDS: MORPHINE SULFATE 4 MG/ML INJ IV PUSH PRN (09:17)
[2018-02-23] MEDS: ENOXAPARIN SODIUM 40 MG/0.4 ML SYRINGE SQ SCH (11:18)
[2018-02-23] MEDS: LACTATED RINGER'S 1000 ML INJ 1,000 ML IV SCH (11:18)
[2018-02-23 12:00] VITALS: BP 133/78; PULSE 74; RESP 18; TEMP 97.9; O2SAT 99
--- NOTE | 2018-02-23 12:32 | HHI.PR ---
Subjective Subjective Notes PTD: 2 Pt lying in bed. Visibly uncomfortable. "It hurts so bad." Visitor at bedside states that he hasn't been sleeping. Pt is enquiring about the frequency of the dressing changes to his leg/ex-fix. Objective Vitals/I&O Vital Signs Date Time Temp Pulse Resp B/P (MAP) Pulse Ox O2 Delivery O2 Flow Rate FiO2 02/23/18 08:00 97.7 74 18 143/85 (104) 97 02/21/18 23:20 Nasal Cannula 3 Radiology Last 48 hours Impressions Thoracic Spine CT 02/21/181943 Signed Impressions: Service Date/Time: Wednesday, February 21, 2018 19:49 - CONCLUSION: Intact thoracic spine. Scoliosis and mild degenerative changes as above. Dutch Baez MD Lumbar Spine CT 02/21/181943 Signed Impressions: Service Date/Time: Wednesday, February 21, 2018 19:49 - CONCLUSION: Intact lumbar spine. Mild degenerative changes at L4/L5 and L5/S1. Dutch Baez MD Pelvis X-Ray 02/21/181923 Signed Impressions: Service Date/Time: Wednesday, February 21, 2018 19:22 - CONCLUSION: No evidence of pelvic fracture. Dutch Baez MD Head CT 02/21/181923 Signed Impressions: Service Date/Time: Wednesday, February 21, 2018 19:45 - CONCLUSION: Negative noncontrast head CT. Dutch Baez MD Chest X-Ray 02/21/181923 Signed Impressions: Service Date/Time: Wednesday, February 21, 2018 19:22 - CONCLUSION: No acute abnormality demonstrated. Dutch Baez MD Chest CT 02/21/181923 Signed Impressions: Service Date/Time: Wednesday, February 21, 2018 19:49 - CONCLUSION: No acute abnormality demonstrated. Dutch Baez MD Cervical Spine CT 02/21/181923 Signed Impressions: Service Date/Time: Wednesday, February 21, 2018 19:45 - CONCLUSION: No fracture or subluxation of the cervical spine. Surgical and degenerative changes as above. Dutch Baez MD Abdomen/Pelvis CT 02/21/18 1924 Signed Impressions: Service Date/Time: Wednesday, February 21, 2018 19:49 - CONCLUSION: Negative trauma CT of the abdomen and pelvis. Tiny nonobstructing stone of the left kidney incidentally noted. Dutch Baez MD Lower Extremity CT 02/21/18 0000 Signed Impressions: Service Date/Time: Thursday, February 22, 2018 02:10 - CONCLUSION: 1. Severely comminuted intra-articular fracture of the distal tibia and also comminuted distal fibular fracture. Small avulsion fractures of the talus laterally. Ricardo Álvarez MD Ankle X-Ray 02/21/18 0000 Signed Impressions: Service Date/Time: Wednesday, February 21, 2018 21:36 - CONCLUSION: External fixation of comminuted distal tibia and fibula fractures. Near-anatomic alignment. Dutch Baez MD Ankle X-Ray 02/21/18 0000 Signed Impressions: Service Date/Time: Wednesday, February 21, 2018 19:22 - CONCLUSION: Interval closed reduction and splinting. Markedly comminuted intra-articular fractures of the distal left tibia and fibula again noted. Dutch Baez MD Ankle X-Ray 02/21/18 0000 Signed Impressions: Service Date/Time: Wednesday, February 21, 2018 19:22 - CONCLUSION: Severely comminuted intra-articular fractures of the distal left tibia and fibula with medial angulation deformity. Dutch Baez MD Narrative Exam GENERAL: This is a 38 year old male OOB in a chair. Pt painful, but No distress noted. SKIN: Warm and dry. HEAD: Atraumatic. Normocephalic. EYES: PERRLA ENT: No nasal bleeding or discharge. Mucous membranes pink and moist. NECK: Trachea midline. No JVD. CARDIOVASCULAR: Regular rate and rhythm. RESPIRATORY: No accessory muscle use. Lungs are clear to auscultation. Breath sounds equal bilaterally. No distress or dyspnea. GASTROINTESTINAL: BS + x 4 quads. Abdomen soft, non-tender, nondistended. MUSCULOSKELETAL: Extremities without cyanosis. Left ankle ex-fix in place, wrapped with Karl bandage. Elevated on pillow. Swelling/edema noted. + peripheral pulses x 4 extremities. Warm with good capillary refill and sensation. MAEW. NEUROLOGICAL: Awake and alert. Normal speech and pattern. A/P Problem List: (1) Open left ankle fracture ICD Codes: S82.892B - Other fracture of left lower leg, initial encounter for open fracture type I or II Status: Acute (2) Injury resulting from fall from height ICD Codes: W17.89XA - Other fall from one level to another, initial encounter Status: Acute Assessment and Plan [place]: This is a 38-year-old male who is a fall. He fell from scaffolding approximately 16 feet high. He landed on his left foot. INJURIES: LEFT distal tib-fib fx LEFT ankle fx/dislocation *LEFT kidney stone PMHx: smoker Procedures: 02/21: LEFT ankle reduced in ED 02/21: LEFT ankle I&D w/ ex-fix placement Consults: Orthopedics. Case management. Diet: Regular diet. Tolerating po diet. Encourage good po intake with each meal. Pulmonary: Encourage good pulmonary toileting. IS at bedside and pt encouraged to use. Rationale for use explained to patient, and verbalized understanding. PAIN Management: Oxycodone 5-10 mg q 4h. DC Morphine -added Dilaudid 1 mg every 3 hours for breakthrough pain. Increased Neurontin 400 mg TID. Toradol 15 mg q 8h. Added OFIRMEV for additional 24 hrs Sleep: Melatonin 5 mg HS Activity: OOB. PT and OT ordered. (NWB LLE) GI prophylaxis: Protonix 40 mg IV QD Bowel regimen: Korin-colace and MOM. LBM: 0 DVT prophylaxis: Mechanical VTE with SCDs. Chemical management with Lovenox 40 mg QD SQ. DC Planning: Case management consulted for assistance with final discharge disposition. Emotional support provided to patient and family at bedside and plan of care discussed. Discussed with RN at bedside. Discussed pt condition and plan of care with collaborating trauma surgeon. Patient is hemodynamically stable and being managed on the med/surg floor. The trauma team will round each day, and evaluate plan of care on a daily basis. LEFT distal tib-fib fx LEFT ankle fx/dislocation Orthopedics consulted and assisting in management and care 02/21: LEFT ankle reduced in ED 02/21: LEFT ankle I&D w/ ex-fix placement *It will be 5-7 days before surgery can be completed due to swelling. Orthopedics would like patient to stay in the hospital through the weekend to be evaluated for surgery Supportive care Pain management -adjusted for better control Pain care per orthopedics IV antibiotics per orthopedics Encourage out of bed PT and OT ordered Lovenox for DVT prophylaxis Problem Qualifiers (1) Open left ankle fracture: Mary Mason [facility] Feb 23, 2018 12:32
[2018-02-23] MEDS: GABAPENTIN 400 MG CAP PO SCH ×2 (12:40→17:32)
[2018-02-23] MEDS ORDERED: MELATONIN 5 MG TAB PO PRN (13:00)
[2018-02-23] MEDS: HYDROmorphone HCL PF 2 MG/ML VIAL IV PUSH PRN ×3 (13:21→22:08)
[2018-02-23] MEDS ORDERED: ALPRAZolam 0.25 MG TAB PO ONE (14:15)
[2018-02-23 16:00] VITALS: BP 135/84; PULSE 77; RESP 18; TEMP 98.3; O2SAT 97
[2018-02-23] MEDS: PANTOPRAZOLE SODIUM 40 MG VIAL IVP SCH (19:58)
[2018-02-23 20:00] VITALS: BP 134/85; PULSE 70; RESP 18; TEMP 99; O2SAT 99
[2018-02-24] VITALS: BP 120/69; PULSE 87; RESP 18; TEMP 98.6; O2SAT 97
[2018-02-24] MEDS: HYDROmorphone HCL PF 2 MG/ML VIAL IV PUSH PRN ×5 (02:19→22:50)
[2018-02-24] MEDS: ACETAMINOPHEN 1000 MG/100 ML 100 ML IV SCH ×4 (02:23→18:48)
[2018-02-24] MEDS: KETOROLAC TROMETHAMINE 30 MG/ML (IVP) VIAL IVP SCH ×3 (05:34→22:04)
--- NOTE | 2018-02-24 06:41 | PD.ORT.PN ---
Subjective Subjective Remarks Pain is controlled and his leg is elevated Objective Vitals Vital Signs Date Time Temp Pulse Resp B/P (MAP) Pulse Ox O2 Delivery O2 Flow Rate FiO2 02/24/18 00:00 98.6 87 18 120/69 (86) 97 02/23/18 20:00 99.0 70 18 134/85 (101) 99 02/23/18 16:00 98.3 77 18 135/84 (101) 97 02/23/18 12:00 97.9 74 18 133/78 (96) 99 02/23/18 08:00 97.7 74 18 143/85 (104) 97 I/O 02/23/18 02/23/18 02/23/18 02/24/18 02/24/18 02/24/18 07:00 15:00 23:00 07:00 15:00 23:00 Intake Total 600 ml 240 ml Output Total 600 ml Balance 600 ml -360 ml Intake Oral 600 ml 240 ml Output Urine Total 600 ml # Voids 3 # Bowel Movements 0 0 Result Diagram: 02/22/18 0400 02/22/18 0400 Imaging Last 24 hours Impressions Thoracic Spine CT 02/21/181943 Signed Impressions: Service Date/Time: Wednesday, February 21, 2018 19:49 - CONCLUSION: Intact thoracic spine. Scoliosis and mild degenerative changes as above. Dutch Baez MD Lumbar Spine CT 02/21/181943 Signed Impressions: Service Date/Time: Wednesday, February 21, 2018 19:49 - CONCLUSION: Intact lumbar spine. Mild degenerative changes at L4/L5 and L5/S1. Dutch Baez MD Pelvis X-Ray 02/21/181923 Signed Impressions: Service Date/Time: Wednesday, February 21, 2018 19:22 - CONCLUSION: No evidence of pelvic fracture. Dutch Baez MD Head CT 02/21/181923 Signed Impressions: Service Date/Time: Wednesday, February 21, 2018 19:45 - CONCLUSION: Negative noncontrast head CT. Dutch Baez MD Chest X-Ray 02/21/181923 Signed Impressions: Service Date/Time: Wednesday, February 21, 2018 19:22 - CONCLUSION: No acute abnormality demonstrated. Dutch Baez MD Chest CT 02/21/181923 Signed Impressions: Service Date/Time: Wednesday, February 21, 2018 19:49 - CONCLUSION: No acute abnormality demonstrated. Dutch Baez MD Cervical Spine CT 02/21/181923 Signed Impressions: Service Date/Time: Wednesday, February 21, 2018 19:45 - CONCLUSION: No fracture or subluxation of the cervical spine. Surgical and degenerative changes as above. Dutch Baez MD Abdomen/Pelvis CT 02/21/181923 Signed Impressions: Service Date/Time: Wednesday, February 21, 2018 19:49 - CONCLUSION: Negative trauma CT of the abdomen and pelvis. Tiny nonobstructing stone of the left kidney incidentally noted. Dutch Baez MD Objective Remarks LLE: +exfix. pin sites clean. traumatic wound shows evidence of drainage. nvi. 3 + swelling of lower ankle and foot. Skin blistering was present. Skin is tight. +cap refill. Assessment & Plan Assessment and Plan 1) Left Tibial Pilon and distal fibula fxs s/p Exfix and I&D - POD 3 -NWb -elevate -Ice -pin care BID -daily dressing changes of traumatic wound -swelling not appropriate for surgery at this time -swelling and pain not controlled enough to be discharged home -if swelling and pain improve, patient likely able to be discharged home and managed outpatient until swelling appropriate for surgery. however, would want to wait through the weekend before that happens. -will likely be 5-7 days before swelling appropriate for surgery -will continue to monitor Александр Haynes Jr. Feb 24, 2018 06:41
[2018-02-24] MEDS ORDERED: WHEEMIS3 (07:32)
[2018-02-24] MEDS ORDERED: WALKER WHEELS/F1 MIS (07:32)
[2018-02-24 07:44] VITALS: BP 133/74; PULSE 94; RESP 18; TEMP 98.6; O2SAT 18
[2018-02-24] MEDS: GABAPENTIN 400 MG CAP PO SCH ×3 (10:18→18:48)
[2018-02-24] MEDS: DOCUSATE SODIUM 50 MG/SENNA 8.6 MG TAB PO SCH ×2 (10:18→20:03)
[2018-02-24] MEDS: LACTULOSE SYRUP 20 GM/30 ML CUP PO SCH (10:20)
[2018-02-24] MEDS: MAGNESIUM HYDROXIDE SUSP 30 ML CUP PO SCH ×2 (10:20→20:03)
[2018-02-24] MEDS: ENOXAPARIN SODIUM 40 MG/0.4 ML SYRINGE SQ SCH (10:23)
--- NOTE | 2018-02-24 11:43 | HHI.PR ---
Subjective Subjective Notes PTD: 3 Pt lying in bed. Moaning and crying. Objective Vitals/I&O Vital Signs Date Time Temp Pulse Resp B/P (MAP) Pulse Ox O2 Delivery O2 Flow Rate FiO2 02/24/18 11:26 16 02/24/18 07:44 98.6 94 133/74 (93) 18 02/21/18 23:20 Nasal Cannula 3 Narrative Exam GENERAL: This is a 38 year old male lying in bed Pt painful - moaning and crying. SKIN: Warm and dry. HEAD: Atraumatic. Normocephalic. EYES: PERRLA ENT: No nasal bleeding or discharge. Mucous membranes pink and moist. NECK: Trachea midline. No JVD. CARDIOVASCULAR: Regular rate and rhythm. RESPIRATORY: No accessory muscle use. Lungs are clear to auscultation. Breath sounds equal bilaterally. No distress or dyspnea. GASTROINTESTINAL: BS + x 4 quads. Abdomen soft, non-tender, nondistended. MUSCULOSKELETAL: Extremities without cyanosis. Left ankle ex-fix in place, wrapped with Karl bandage. Elevated on pillow. Swelling/edema noted with fracture blisters. + peripheral pulses x 4 extremities. Warm with good capillary refill and sensation. MAEW. NEUROLOGICAL: Awake and alert. Normal speech and pattern. A/P Problem List: (1) Open left ankle fracture ICD Codes: S82.892B - Other fracture of left lower leg, initial encounter for open fracture type I or II Status: Acute (2) Injury resulting from fall from height ICD Codes: W17.89XA - Other fall from one level to another, initial encounter Status: Acute Assessment and Plan [place]: This is a 38-year-old male who is a fall. He fell from scaffolding approximately 16 feet high. He landed on his left foot. INJURIES: LEFT distal tib-fib fx LEFT ankle fx/dislocation *LEFT kidney stone PMHx: smoker Procedures: 02/21: LEFT ankle reduced in ED 02/21: LEFT ankle I&D w/ ex-fix placement Consults: Orthopedics. Case management. Diet: Regular diet. Tolerating po diet. Encourage good po intake with each meal. Pulmonary: Encourage good pulmonary toileting. IS at bedside and pt encouraged to use. Rationale for use explained to patient, and verbalized understanding. PAIN Management: Oxycodone 5-10 mg q 4h. Dilaudid 1 mg every 3 hours for breakthrough pain. Neurontin 400 mg TID. Toradol 15 mg q 8h. Added Fentanyl patch 25 mcg. Sleep: Melatonin 5 mg HS Activity: OOB. PT and OT ordered. (NWB LLE) GI prophylaxis: Protonix 40 mg IV QD Bowel regimen: Korin-colace and MOM. Added Lactulose. LBM: 0 DVT prophylaxis: Mechanical VTE with SCDs. Chemical management with Lovenox 40 mg QD SQ. DC Planning: Case management consulted for assistance with final discharge disposition. Emotional support provided to patient and family at bedside and plan of care discussed. Discussed with RN at bedside. Discussed pt condition and plan of care with collaborating trauma surgeon. Patient is hemodynamically stable and being managed on the med/surg floor. The trauma team will round each day, and evaluate plan of care on a daily basis. LEFT distal tib-fib fx LEFT ankle fx/dislocation Orthopedics consulted and assisting in management and care 02/21: LEFT ankle reduced in ED 02/21: LEFT ankle I&D w/ ex-fix placement *It will be 5-7 days before surgery can be completed due to swelling. Orthopedics would like patient to stay in the hospital through the weekend to be evaluated for surgery Supportive care Pain management -again adjusted for better control Pain care per orthopedics IV antibiotics per orthopedics Encourage out of bed PT and OT ordered Lovenox for DVT prophylaxis Problem Qualifiers (1) Open left ankle fracture: Mary Mason Feb 24, 2018 11:43 am
[2018-02-24 12:00] VITALS: BP 131/81; PULSE 96; RESP 18; TEMP 99.8; O2SAT 96
[2018-02-24] MEDS: fentaNYL 25 MCG/HR PATCH T-DERMAL SCH (12:58)
[2018-02-24 15:48] VITALS: BP 122/68; PULSE 85; RESP 18; TEMP 98.3; O2SAT 94
[2018-02-24 19:53] VITALS: BP 132/78; PULSE 80; RESP 18; TEMP 98.7; O2SAT 96
[2018-02-24] MEDS: PANTOPRAZOLE SODIUM 40 MG VIAL IVP SCH (20:03)
[2018-02-25] VITALS: BP 119/65; PULSE 74; RESP 20; TEMP 98.4; O2SAT 94
[2018-02-25] MEDS: HYDROmorphone HCL PF 2 MG/ML VIAL IV PUSH PRN ×6 (02:23→23:49)
[2018-02-25] MEDS: KETOROLAC TROMETHAMINE 30 MG/ML (IVP) VIAL IVP SCH (06:01)
[2018-02-25 07:18] VITALS: BP 125/77; PULSE 83; RESP 18; TEMP 98.9; O2SAT 95
[2018-02-25] MEDS: GABAPENTIN 400 MG CAP PO SCH ×3 (07:50→16:52)
[2018-02-25] MEDS: DOCUSATE SODIUM 50 MG/SENNA 8.6 MG TAB PO SCH ×2 (07:50→21:02)
[2018-02-25] MEDS: LACTULOSE SYRUP 20 GM/30 ML CUP PO SCH (07:55)
[2018-02-25] MEDS: MAGNESIUM HYDROXIDE SUSP 30 ML CUP PO SCH ×2 (07:55→21:00)
--- NOTE | 2018-02-25 09:52 | HHI.PR ---
Subjective Subjective Notes PTD: 4 Pt lying in bed. Painful. Pt moaning. Objective Vitals/I&O Vital Signs Date Time Temp Pulse Resp B/P (MAP) Pulse Ox O2 Delivery O2 Flow Rate FiO2 02/25/18 08:20 17 02/25/18 07:18 98.9 83 125/77 (93) 95 02/21/18 23:20 Nasal Cannula 3 Narrative Exam GENERAL: This is a 38 year old male lying in bed Pt painful - moaning.. SKIN: Warm and dry. HEAD: Atraumatic. Normocephalic. EYES: PERRLA ENT: No nasal bleeding or discharge. Mucous membranes pink and moist. NECK: Trachea midline. No JVD. CARDIOVASCULAR: Regular rate and rhythm. RESPIRATORY: No accessory muscle use. Lungs are clear to auscultation. Breath sounds equal bilaterally. No distress or dyspnea. GASTROINTESTINAL: BS + x 4 quads. Abdomen soft, non-tender, nondistended. MUSCULOSKELETAL: Extremities without cyanosis. Left ankle ex-fix in place, wrapped with Karl bandage. Elevated on pillow. Swelling/edema noted with increased fracture blisters -especially to left outer ankle area. + peripheral pulses x 4 extremities. Warm with good capillary refill and sensation. MAEW. NEUROLOGICAL: Awake and alert. Normal speech and pattern. A/P Problem List: (1) Open left ankle fracture ICD Codes: S82.892B - Other fracture of left lower leg, initial encounter for open fracture type I or II Status: Acute (2) Injury resulting from fall from height ICD Codes: W17.89XA - Other fall from one level to another, initial encounter Status: Acute Assessment and Plan [place]: This is a 38-year-old male who is a fall. He fell from scaffolding approximately 16 feet high. He landed on his left foot. INJURIES: LEFT distal tib-fib fx LEFT ankle fx/dislocation *LEFT kidney stone PMHx: smoker Procedures: 02/21: LEFT ankle reduced in ED 02/21: LEFT ankle I&D w/ ex-fix placement Consults: Orthopedics. Case management. Diet: Regular diet. Tolerating po diet. Encourage good po intake with each meal. Pulmonary: Encourage good pulmonary toileting. IS at bedside and pt encouraged to use. Rationale for use explained to patient, and verbalized understanding. PAIN Management: Oxycodone 5-10 mg increased to q 3h. Dilaudid 1 mg every 3 hours for breakthrough pain. Neurontin 400 mg TID. Motrin 800 mg every 8 hours. Fentanyl patch 25 mcg. Sleep: Melatonin 5 mg HS. Activity: OOB. PT and OT ordered. (CHRISTINE TRUONG) GI prophylaxis: Protonix 40 mg IV QD Bowel regimen: Korin-colace and MOM. Lactulose. LBM: 02/25. DVT prophylaxis: Mechanical VTE with SCDs. Chemical management with Lovenox 40 mg QD SQ. DC Planning: Case management consulted for assistance with final discharge disposition. Emotional support provided to patient at bedside and plan of care discussed. Discussed with RN at bedside. Discussed pt condition and plan of care with collaborating trauma surgeon. Patient is hemodynamically stable and being managed on the med/surg floor. The trauma team will round each day, and evaluate plan of care on a daily basis. LEFT distal tib-fib fx LEFT ankle fx/dislocation Orthopedics consulted and assisting in management and care 02/21: LEFT ankle reduced in ED 02/21: LEFT ankle I&D w/ ex-fix placement *It will be a few more days before surgery can be completed due to swelling. Orthopedics would like patient to stay in the hospital through the weekend to be evaluated for surgery Supportive care Pain management -again adjusted for better control Pin care per orthopedics IV antibiotics per orthopedics Encourage out of bed PT and OT ordered Lovenox for DVT prophylaxis Problem Qualifiers (1) Open left ankle fracture: Mary Mason Feb 25, 2018 09:51
[2018-02-25] MEDS: ENOXAPARIN SODIUM 40 MG/0.4 ML SYRINGE SQ SCH (10:47)
--- NOTE | 2018-02-25 11:24 | PD.ORT.PN ---
Subjective Subjective Remarks Pain is controlled and his leg is elevated Objective Vitals Vital Signs Date Time Temp Pulse Resp B/P (MAP) Pulse Ox O2 Delivery O2 Flow Rate FiO2 02/25/18 08:20 17 02/25/18 07:18 98.9 83 18 125/77 (93) 95 02/25/18 00:00 98.4 74 20 119/65 (83) 94 02/24/18 19:53 98.7 80 18 132/78 (96) 96 02/24/18 16:50 16 02/24/18 15:48 98.3 85 18 122/68 (86) 94 02/24/18 13:29 16 02/24/18 13:29 16 02/24/18 13:29 16 02/24/18 12:00 99.8 96 18 131/81 (98) 96 I/O 02/24/18 02/24/18 02/24/18 02/25/18 02/25/18 02/25/18 06:59 14:59 22:59 06:59 14:59 22:59 Intake Total 240 ml 100 ml 480 ml 480 ml Output Total 600 ml 900 ml Balance -360 ml 100 ml 480 ml -420 ml Intake Oral 240 ml 480 ml 480 ml IV Total 100 ml Output Urine Total 600 ml 900 ml # Voids 3 # Bowel Movements 0 0 1 Result Diagram: 02/22/18 0400 02/22/18 0400 Imaging Last 24 hours Impressions Thoracic Spine CT 02/21/181943 Signed Impressions: Service Date/Time: Wednesday, February 21, 2018 19:49 - CONCLUSION: Intact thoracic spine. Scoliosis and mild degenerative changes as above. Dutch Baez MD Lumbar Spine CT 02/21/181943 Signed Impressions: Service Date/Time: Wednesday, February 21, 2018 19:49 - CONCLUSION: Intact lumbar spine. Mild degenerative changes at L4/L5 and L5/S1. Dutch Baez MD Pelvis X-Ray 02/21/181923 Signed Impressions: Service Date/Time: Wednesday, February 21, 2018 19:22 - CONCLUSION: No evidence of pelvic fracture. Dutch Baez MD Head CT 02/21/181923 Signed Impressions: Service Date/Time: Wednesday, February 21, 2018 19:45 - CONCLUSION: Negative noncontrast head CT. Dutch Baez MD Chest X-Ray 02/21/181923 Signed Impressions: Service Date/Time: Wednesday, February 21, 2018 19:22 - CONCLUSION: No acute abnormality demonstrated. Dutch Baez MD Chest CT 02/21/181923 Signed Impressions: Service Date/Time: Wednesday, February 21, 2018 19:49 - CONCLUSION: No acute abnormality demonstrated. Dutch Baez MD Cervical Spine CT 02/21/181923 Signed Impressions: Service Date/Time: Wednesday, February 21, 2018 19:45 - CONCLUSION: No fracture or subluxation of the cervical spine. Surgical and degenerative changes as above. Dutch Baez MD Abdomen/Pelvis CT 02/21/181923 Signed Impressions: Service Date/Time: Wednesday, February 21, 2018 19:49 - CONCLUSION: Negative trauma CT of the abdomen and pelvis. Tiny nonobstructing stone of the left kidney incidentally noted. Dutch Baez MD Objective Remarks LLE: +exfix. pin sites clean. traumatic wound shows evidence of drainage. nvi. 3 + swelling of lower ankle and foot. Skin blistering is progressing.. Skin is tight. +cap refill. Assessment & Plan Assessment and Plan 1) Left Tibial Pilon and distal fibula fxs s/p Exfix and I&D - POD 4 -NWb -elevate -Ice -pin care BID -daily dressing changes of traumatic wound -Toradol -swelling and pain not controlled enough to be discharged home -if swelling and pain improve, patient likely able to be discharged home and managed outpatient until swelling appropriate for surgery. however, would want to wait through the weekend before that happens. -will likely be 5-7 days before swelling appropriate for surgery -will continue to monitor Александр Haynes Jr. Feb 25, 2018 11:23
[2018-02-25 11:43] VITALS: BP 120/65; PULSE 78; RESP 18; TEMP 98.3; O2SAT 97
[2018-02-25] MEDS: IBUPROFEN 800 MG TAB PO SCH ×2 (15:20→21:01)
[2018-02-25 16:00] VITALS: BP 134/76; PULSE 110; RESP 18; TEMP 98.9; O2SAT 96
[2018-02-25 20:00] VITALS: BP 128/71; PULSE 104; RESP 20; TEMP 97.6; O2SAT 94
[2018-02-25] MEDS: PANTOPRAZOLE SODIUM 40 MG VIAL IVP SCH (21:02)
[2018-02-26] VITALS: BP 124/61; PULSE 81; RESP 20; TEMP 97.9; O2SAT 98
[2018-02-26] MEDS: HYDROmorphone HCL PF 2 MG/ML VIAL IV PUSH PRN ×6 (02:37→21:29)
[2018-02-26] MEDS: IBUPROFEN 800 MG TAB PO SCH ×3 (06:46→21:30)
[2018-02-26 08:00] VITALS: BP 135/81; PULSE 90; RESP 18; TEMP 98; O2SAT 97
[2018-02-26] MEDS: GABAPENTIN 400 MG CAP PO SCH (08:01)
[2018-02-26] MEDS: LACTULOSE SYRUP 20 GM/30 ML CUP PO SCH (08:05)
[2018-02-26] MEDS: MAGNESIUM HYDROXIDE SUSP 30 ML CUP PO SCH ×2 (08:05→20:08)
[2018-02-26] MEDS: DOCUSATE SODIUM 50 MG/SENNA 8.6 MG TAB PO SCH ×2 (08:06→20:02)
--- NOTE | 2018-02-26 09:49 | PD.ORT.PN ---
Subjective Subjective Remarks Pain is controlled and his leg is elevated Objective Vitals Vital Signs Date Time Temp Pulse Resp B/P (MAP) Pulse Ox O2 Delivery O2 Flow Rate FiO2 02/26/18 08:06 17 02/26/18 08:06 17 02/26/18 08:00 98.0 90 18 135/81 (99) 97 02/26/18 00:00 97.9 81 20 124/61 (82) 98 02/25/18 20:00 97.6 104 20 128/71 (90) 94 02/25/18 16:00 98.9 110 18 134/76 (95) 96 02/25/18 15:51 17 02/25/18 11:43 98.3 78 18 120/65 (83) 97 I/O 02/25/18 02/25/18 02/25/18 02/26/18 02/26/18 02/26/18 07:00 15:00 23:00 07:00 15:00 23:00 Intake Total 480 ml 960 ml 650 ml Output Total 900 ml 1200 ml Balance -420 ml 960 ml -550 ml Intake Oral 480 ml 960 ml 650 ml Output Urine Total 900 ml 1200 ml # Voids 4 # Bowel Movements 1 0 0 Result Diagram: 02/22/18 0400 02/22/18 0400 Imaging Last 24 hours Impressions Thoracic Spine CT 02/21/181943 Signed Impressions: Service Date/Time: Wednesday, February 21, 2018 19:49 - CONCLUSION: Intact thoracic spine. Scoliosis and mild degenerative changes as above. Dutch Baez MD Lumbar Spine CT 02/21/181943 Signed Impressions: Service Date/Time: Wednesday, February 21, 2018 19:49 - CONCLUSION: Intact lumbar spine. Mild degenerative changes at L4/L5 and L5/S1. Dutch Baez MD Pelvis X-Ray 02/21/181923 Signed Impressions: Service Date/Time: Wednesday, February 21, 2018 19:22 - CONCLUSION: No evidence of pelvic fracture. Dutch Baez MD Head CT 02/21/181923 Signed Impressions: Service Date/Time: Wednesday, February 21, 2018 19:45 - CONCLUSION: Negative noncontrast head CT. Dutch Baez MD Chest X-Ray 02/21/181923 Signed Impressions: Service Date/Time: Wednesday, February 21, 2018 19:22 - CONCLUSION: No acute abnormality demonstrated. Dutch Baez MD Chest CT 02/21/181923 Signed Impressions: Service Date/Time: Wednesday, February 21, 2018 19:49 - CONCLUSION: No acute abnormality demonstrated. Dutch Baez MD Cervical Spine CT 02/21/181923 Signed Impressions: Service Date/Time: Wednesday, February 21, 2018 19:45 - CONCLUSION: No fracture or subluxation of the cervical spine. Surgical and degenerative changes as above. Dutch Baez MD Abdomen/Pelvis CT 02/21/181923 Signed Impressions: Service Date/Time: Wednesday, February 21, 2018 19:49 - CONCLUSION: Negative trauma CT of the abdomen and pelvis. Tiny nonobstructing stone of the left kidney incidentally noted. Dutch Baez MD Objective Remarks LLE: +exfix. pin sites clean. traumatic wound shows evidence of drainage. nvi. 3 + swelling of lower ankle and foot. Skin blistering is progressing.. Skin is tight. +cap refill. Assessment & Plan Assessment and Plan 1) Left Tibial Pilon and distal fibula fxs s/p Exfix and I&D - POD 5 -NWb -elevate -Ice -pin care BID -daily dressing changes of traumatic wound -Toradol -swelling and pain not controlled enough to be discharged home -if swelling and pain improve, patient likely able to be discharged home and managed outpatient until swelling appropriate for surgery. however, would want to wait through the weekend before that happens. -will likely be 4 days before swelling appropriate for surgery -will continue to monitor Александр Haynes Jr. Feb 26, 2018 09:49
[2018-02-26] MEDS: ENOXAPARIN SODIUM 40 MG/0.4 ML SYRINGE SQ SCH (10:24)
--- NOTE | 2018-02-26 11:35 | HHI.PR ---
Subjective Subjective Notes PTD: 5 Patient lying in bed. Extremely painful. Patient states, "I am still in a lot of pain." Objective Vitals/I&O Vital Signs Date Time Temp Pulse Resp B/P (MAP) Pulse Ox O2 Delivery O2 Flow Rate FiO2 02/26/18 08:31 17 02/26/18 08:00 98.0 90 135/81 (99) 97 Narrative Exam GENERAL: This is a 38 year old male lying in bed Pt very uncomfortable and painful. SKIN: Warm and dry. HEAD: Atraumatic. Normocephalic. EYES: PERRLA ENT: No nasal bleeding or discharge. Mucous membranes pink and moist. NECK: Trachea midline. No JVD. CARDIOVASCULAR: Regular rate and rhythm. RESPIRATORY: No accessory muscle use. Lungs are clear to auscultation. Breath sounds equal bilaterally. No distress or dyspnea. GASTROINTESTINAL: BS + x 4 quads. Abdomen soft, non-tender, nondistended. MUSCULOSKELETAL: Extremities without cyanosis. Left ankle ex-fix in place, wrapped with Karl bandage. Elevated on pillow. Swelling/edema noted with fracture blisters -especially to left outer ankle area. + peripheral pulses x 4 extremities. Warm with good capillary refill and sensation. MAEW. NEUROLOGICAL: Awake and alert. Normal speech and pattern. A/P Problem List: (1) Open left ankle fracture ICD Codes: S82.892B - Other fracture of left lower leg, initial encounter for open fracture type I or II Status: Acute (2) Injury resulting from fall from height ICD Codes: W17.89XA - Other fall from one level to another, initial encounter Status: Acute Assessment and Plan DIOMEDE: This is a 38-year-old male who is a fall. He fell from scaffolding approximately 16 feet high. He landed on his left foot. INJURIES: LEFT distal tib-fib fx LEFT ankle fx/dislocation *LEFT kidney stone PMHx: smoker Procedures: 02/21: LEFT ankle reduced in ED 02/21: LEFT ankle I&D w/ ex-fix placement Consults: Orthopedics. Case management. Diet: Regular diet. Tolerating po diet. Encourage good po intake with each meal. Pulmonary: Encourage good pulmonary toileting. IS at bedside and pt encouraged to use. Rationale for use explained to patient, and verbalized understanding. PAIN Management: Oxycodone 5-10 mg increased to q 3h. Dilaudid 1 mg every 3 hours for breakthrough pain. DC Neurontin. Changed to Lyrica 100 mg BID. Motrin 800 mg every 8 hours. Fentanyl patch 25 mcg. Sleep: Melatonin 5 mg HS. Activity: OOB. PT and OT ordered. (NWB SOBEIDAE) GI prophylaxis: Protonix 40 mg IV QD Bowel regimen: Korin-colace and MOM. Lactulose. LBM: 02/25. DVT prophylaxis: Mechanical VTE with SCDs. Chemical management with Lovenox 40 mg QD SQ. DC Planning: Case management consulted for assistance with final discharge disposition. Emotional support provided to patient at bedside and plan of care discussed. Discussed with RN at bedside. Discussed pt condition and plan of care with collaborating trauma surgeon. Patient is hemodynamically stable and being managed on the med/surg floor. The trauma team will round each day, and evaluate plan of care on a daily basis. LEFT distal tib-fib fx LEFT ankle fx/dislocation Orthopedics consulted and assisting in management and care 02/21: LEFT ankle reduced in ED 02/21: LEFT ankle I&D w/ ex-fix placement *It will be a few more days before surgery can be completed due to swelling - await ortho's plan Orthopedics would like patient to stay in the hospital through the weekend to be evaluated for surgery Supportive care Pain management -again adjusted for better control Pin care per orthopedics IV antibiotics per orthopedics Encourage out of bed PT and OT ordered Lovenox for DVT prophylaxis Problem Qualifiers (1) Open left ankle fracture: Mary Mason Feb 26, 2018 11:35
[2018-02-26 12:01] VITALS: BP 139/83; PULSE 90; RESP 18; TEMP 97.6; O2SAT 100
[2018-02-26] MEDS: PREGABALIN 100 MG CAP PO SCH ×2 (12:10→20:02)
[2018-02-26 16:00] VITALS: BP 128/72; PULSE 98; RESP 18; TEMP 99.8; O2SAT 96
[2018-02-26] MEDS: PANTOPRAZOLE SODIUM 40 MG VIAL IVP SCH (20:02)
[2018-02-26 20:49] VITALS: BP 112/61; PULSE 91; RESP 16; TEMP 98.8; O2SAT 95
[2018-02-27 00:25] VITALS: BP 126/69; PULSE 91; RESP 18; TEMP 99.2; O2SAT 96
[2018-02-27] MEDS: HYDROmorphone HCL PF 2 MG/ML VIAL IV PUSH PRN ×7 (00:32→21:35)
[2018-02-27] MEDS: IBUPROFEN 800 MG TAB PO SCH ×3 (06:08→21:35)
[2018-02-27 08:00] VITALS: BP 117/72; PULSE 74; RESP 18; TEMP 97.2; O2SAT 96
[2018-02-27] MEDS: LACTULOSE SYRUP 20 GM/30 ML CUP PO SCH (09:00)
[2018-02-27] MEDS: MAGNESIUM HYDROXIDE SUSP 30 ML CUP PO SCH ×2 (09:00→20:19)
--- NOTE | 2018-02-27 09:15 | PD.ORT.PN ---
Subjective Subjective Remarks Pain is controlled and his leg is elevated Objective Vitals Vital Signs Date Time Temp Pulse Resp B/P (MAP) Pulse Ox O2 Delivery O2 Flow Rate FiO2 02/27/18 08:00 97.2 74 18 117/72 (87) 96 02/27/18 00:25 99.2 91 18 126/69 (88) 96 02/26/18 20:49 98.8 91 16 112/61 (78) 95 02/26/18 19:00 18 02/26/18 18:42 18 02/26/18 16:00 99.8 98 18 128/72 (90) 96 02/26/18 15:14 17 02/26/18 13:20 16 02/26/18 12:01 97.6 90 18 139/83 (101) 100 I/O 02/26/18 02/26/18 02/26/18 02/27/18 02/27/18 02/27/18 07:00 15:00 23:00 07:00 15:00 23:00 Intake Total 650 ml 960 ml Output Total 1200 ml 360 ml Balance -550 ml 960 ml -360 ml Intake Oral 650 ml 960 ml Output Urine Total 1200 ml 360 ml # Voids 4 1 # Bowel Movements 0 2 Imaging Last 24 hours Impressions Thoracic Spine CT 02/21/181943 Signed Impressions: Service Date/Time: Wednesday, February 21, 2018 19:49 - CONCLUSION: Intact thoracic spine. Scoliosis and mild degenerative changes as above. Dutch Baez MD Lumbar Spine CT 02/21/181943 Signed Impressions: Service Date/Time: Wednesday, February 21, 2018 19:49 - CONCLUSION: Intact lumbar spine. Mild degenerative changes at L4/L5 and L5/S1. Dutch Baez MD Pelvis X-Ray 02/21/181923 Signed Impressions: Service Date/Time: Wednesday, February 21, 2018 19:22 - CONCLUSION: No evidence of pelvic fracture. Dutch Baez MD Head CT 02/21/181923 Signed Impressions: Service Date/Time: Wednesday, February 21, 2018 19:45 - CONCLUSION: Negative noncontrast head CT. Dutch Baez MD Chest X-Ray 02/21/181923 Signed Impressions: Service Date/Time: Wednesday, February 21, 2018 19:22 - CONCLUSION: No acute abnormality demonstrated. Dutch Baez MD Chest CT 02/21/181923 Signed Impressions: Service Date/Time: Wednesday, February 21, 2018 19:49 - CONCLUSION: No acute abnormality demonstrated. Dutch Baez MD Cervical Spine CT 02/21/181923 Signed Impressions: Service Date/Time: Wednesday, February 21, 2018 19:45 - CONCLUSION: No fracture or subluxation of the cervical spine. Surgical and degenerative changes as above. Dutch Baez MD Abdomen/Pelvis CT 02/21/181923 Signed Impressions: Service Date/Time: Wednesday, February 21, 2018 19:49 - CONCLUSION: Negative trauma CT of the abdomen and pelvis. Tiny nonobstructing stone of the left kidney incidentally noted. Dutch Baez MD Objective Remarks LLE: +exfix. pin sites clean. traumatic wound shows evidence of drainage. nvi. 3 + swelling of lower ankle and foot. Traumatic skin blistering is unroofed and dressing is placed upon it.. Skin is tight. +cap refill. Assessment & Plan Assessment and Plan 1) Left Tibial Pilon and distal fibula fxs s/p Exfix and I&D - POD 6 -NWb -elevate -Ice -pin care BID -daily dressing changes of traumatic wound --will take dressing down tomorrow morning and begin bacitracin and Adaptic over blistered areas daily -Toradol -swelling and pain not controlled enough to be discharged home -if swelling and pain improve, patient likely able to be discharged home and managed outpatient until swelling appropriate for surgery. however, would want to wait through the weekend before that happens. -will likely be 4 days before swelling appropriate for surgery -will continue to monitor Александр Haynes Jr. Feb 27, 2018 09:15
[2018-02-27] MEDS: PREGABALIN 100 MG CAP PO SCH ×2 (10:21→20:19)
[2018-02-27] MEDS: ENOXAPARIN SODIUM 40 MG/0.4 ML SYRINGE SQ SCH (10:21)
[2018-02-27] MEDS: DOCUSATE SODIUM 50 MG/SENNA 8.6 MG TAB PO SCH ×2 (10:22→20:19)
--- NOTE | 2018-02-27 11:29 | HHI.PR ---
Subjective Subjective Notes Pain controlled Eating well Objective Vitals/I&O Vital Signs Date Time Temp Pulse Resp B/P (MAP) Pulse Ox O2 Delivery O2 Flow Rate FiO2 02/27/18 08:00 97.2 74 18 117/72 (87) 96 Labs Laboratory Tests Test 02/21/18 19:24 02/21/18 19:27 02/22/18 04:00 02/22/18 10:45 Bedside Hemoglobin 11.9 G/DL Bedside Hematocrit 35.0 % Bedside Sodium 139 MMOL/L Bedside Potassium 3.3 MMOL/L Bedside Chloride 103 MMOL/L Bedside Blood Urea Nitrogen 14 MG/DL Bedside Creatinine 1.1 MG/DL Bedside Glucose 95 MG/DL Prothrombin Time 10.8 SEC Prothromb Time International Ratio 1.1 RATIO Activated Partial Thromboplast Time 22.6 SEC Fibrinogen 185 mg/dL White Blood Count 8.0 TH/MM3 Red Blood Count 4.12 MIL/MM3 Hemoglobin 11.8 GM/DL Hematocrit 34.5 % Mean Corpuscular Volume 83.9 FL Mean Corpuscular Hemoglobin 28.7 PG Mean Corpuscular Hemoglobin Concent 34.2 % Red Cell Distribution Width 13.0 % Platelet Count 131 TH/MM3 Mean Platelet Volume 8.9 FL Neutrophils (%) (Auto) 87.7 % Lymphocytes (%) (Auto) 6.7 % Monocytes (%) (Auto) 5.4 % Eosinophils (%) (Auto) 0.1 % Basophils (%) (Auto) 0.1 % Neutrophils # (Auto) 7.0 TH/MM3 Lymphocytes # (Auto) 0.5 TH/MM3 Monocytes # (Auto) 0.4 TH/MM3 Eosinophils # (Auto) 0.0 TH/MM3 Basophils # (Auto) 0.0 TH/MM3 CBC Comment DIFF FINAL Differential Comment Blood Urea Nitrogen 12 MG/DL Creatinine 1.06 MG/DL Random Glucose 129 MG/DL Total Protein 5.9 GM/DL Albumin 3.3 GM/DL Calcium Level 7.7 MG/DL Alkaline Phosphatase 54 U/L Aspartate Amino Transf (AST/SGOT) 18 U/L Alanine Aminotransferase (ALT/SGPT) 31 U/L Total Bilirubin 0.3 MG/DL Sodium Level 143 MEQ/L Potassium Level 4.0 MEQ/L Chloride Level 109 MEQ/L Carbon Dioxide Level 26.5 MEQ/L Anion Gap 8 MEQ/L Estimat Glomerular Filtration Rate 60 ML/MIN Urine Color YELLOW Urine Turbidity CLEAR Urine pH 6.5 Urine Specific [place] 1.020 Urine Protein NEG mg/dL Urine Glucose (UA) NEG mg/dL Urine Ketones NEG mg/dL Urine Occult Blood NEG Urine Nitrite NEG Urine Bilirubin NEG Urine Urobilinogen LESS THAN 2.0 MG/DL Urine Leukocyte Esterase NEG Urine RBC LESS THAN 1 /hpf Urine WBC 1 /hpf Urine Mucus FEW /lpf Microscopic Urinalysis Comment CULT NOT INDICATED Urine Opiates Screen POS Urine Barbiturates Screen NEG Urine Amphetamines Screen POS Urine Benzodiazepines Screen NEG Urine Cocaine Screen NEG Urine Cannabinoids Screen NEG Radiology Last Impressions Thoracic Spine CT 02/21/181943 Signed Impressions: Service Date/Time: Wednesday, February 21, 2018 19:49 - CONCLUSION: Intact thoracic spine. Scoliosis and mild degenerative changes as above. Dutch Baez MD Lumbar Spine CT 02/21/181943 Signed Impressions: Service Date/Time: Wednesday, February 21, 2018 19:49 - CONCLUSION: Intact lumbar spine. Mild degenerative changes at L4/L5 and L5/S1. Dutch Baez MD Pelvis X-Ray 02/21/181923 Signed Impressions: Service Date/Time: Wednesday, February 21, 2018 19:22 - CONCLUSION: No evidence of pelvic fracture. Dutch Baez MD Head CT 02/21/181923 Signed Impressions: Service Date/Time: Wednesday, February 21, 2018 19:45 - CONCLUSION: Negative noncontrast head CT. Dutch Baez MD Chest X-Ray 02/21/181923 Signed Impressions: Service Date/Time: Wednesday, February 21, 2018 19:22 - CONCLUSION: No acute abnormality demonstrated. Dutch Baez MD Chest CT 02/21/181923 Signed Impressions: Service Date/Time: Wednesday, February 21, 2018 19:49 - CONCLUSION: No acute abnormality demonstrated. Dutch Baez MD Cervical Spine CT 02/21/181923 Signed Impressions: Service Date/Time: Wednesday, February 21, 2018 19:45 - CONCLUSION: No fracture or subluxation of the cervical spine. Surgical and degenerative changes as above. Dutch Baez MD Abdomen/Pelvis CT 02/21/18 1924 Signed Impressions: Service Date/Time: Wednesday, February 21, 2018 19:49 - CONCLUSION: Negative trauma CT of the abdomen and pelvis. Tiny nonobstructing stone of the left kidney incidentally noted. Dutch Baez MD Lower Extremity CT 02/21/18 0000 Signed Impressions: Service Date/Time: Thursday, February 22, 2018 02:10 - CONCLUSION: 1. Severely comminuted intra-articular fracture of the distal tibia and also comminuted distal fibular fracture. Small avulsion fractures of the talus laterally. Ricardo Álvarez MD Ankle X-Ray 02/21/18 0000 Signed Impressions: Service Date/Time: Wednesday, February 21, 2018 21:36 - CONCLUSION: External fixation of comminuted distal tibia and fibula fractures. Near-anatomic alignment. Dutch Baez MD Narrative Exam GENERAL: 38-year-old well-nourished, well developed male lying in bed in no acute distress. SKIN: Warm and dry. HEAD: Normocephalic. EYES: Pupils equal and round. No scleral icterus. ENT: No nasal bleeding or discharge. Mucous membranes pink and moist. NECK: Trachea midline. No JVD. CARDIOVASCULAR: Regular rate and rhythm. RESPIRATORY: No accessory muscle use. Lungs clear to auscultation. Breath sounds equal bilaterally. GASTROINTESTINAL: Abdomen soft, non-tender, nondistended. + BS. MUSCULOSKELETAL: Extremities without cyanosis, +2 LLE edema. Left ankle external fixator in place. MAEW, + perfused NEUROLOGICAL: Awake and alert. Normal speech. A/P Problem List: (1) Open left ankle fracture ICD Codes: S82.892B - Other fracture of left lower leg, initial encounter for open fracture type I or II Status: Acute (2) Injury resulting from fall from height ICD Codes: W17.89XA - Other fall from one level to another, initial encounter Status: Acute Assessment and Plan LA JOLLA: Fell off scaffolding from approximately 16 feet. No LOC. + amphetamines INJURIES: LEFT distal tib-fib fx LEFT ankle fx/dislocation PMHx: Tobacco use 02/21: LEFT ankle reduced 02/21: LEFT ankle I&D w/ ex-fix placement LEFT distal tib-fib fx, LEFT ankle fx/dislocation Orthopedics consulted 02/21: LEFT ankle reduced 02/21: LEFT ankle I&D w/ ex-fix placement Awaiting orthopedic plan for ex-fix removal Pain control Pin care per orthopedics IV antibiotics per orthopedics OOB- PT and OT ordered Lovenox Plan of care discussed with patient and RN at bedside. Collaborating Trauma surgeon agrees with plan. Case management consulted to assist with discharge planning. Problem Qualifiers (1) Open left ankle fracture: Jerrell Guaman CHRISTMAS BELL RINGER Feb 27, 2018 11:29
[2018-02-27 12:00] VITALS: BP 107/69; PULSE 75; RESP 18; TEMP 98.1; O2SAT 96
[2018-02-27] MEDS: fentaNYL 25 MCG/HR PATCH T-DERMAL SCH (13:58)
[2018-02-27] MEDS ORDERED: REMOVE OLD DURAGESIC (FENTANYL) PATCH T-DERMAL SCH (14:00)
[2018-02-27 16:00] VITALS: BP 133/84; PULSE 113; RESP 18; TEMP 100.2; O2SAT 96
[2018-02-27 16:55] VITALS: TEMP 99.8
[2018-02-27] MEDS: SODIUM CHLORIDE 0.9% FLUSH 10 ML FLUSH IV FLUSH PRN ×2 (18:13→21:36)
[2018-02-27 20:00] VITALS: BP 118/77; PULSE 101; RESP 19; TEMP 99.3; O2SAT 95
[2018-02-28 00:01] VITALS: BP 134/79; PULSE 114; RESP 18; TEMP 99.9; O2SAT 95
[2018-02-28] MEDS: HYDROmorphone HCL PF 2 MG/ML VIAL IV PUSH PRN ×7 (00:52→22:38)
[2018-02-28] MEDS: SODIUM CHLORIDE 0.9% FLUSH 10 ML FLUSH IV FLUSH PRN ×2 (00:52→22:38)
[2018-02-28] MEDS: IBUPROFEN 800 MG TAB PO SCH ×3 (05:01→21:22)
--- NOTE | 2018-02-28 06:38 | PD.ORT.PN ---
Subjective Subjective Remarks Pain is controlled and his leg is elevated Objective Vitals Vital Signs Date Time Temp Pulse Resp B/P (MAP) Pulse Ox O2 Delivery O2 Flow Rate FiO2 02/28/18 00:01 99.9 114 18 134/79 (97) 95 02/27/18 20:00 99.3 101 19 118/77 (91) 95 02/27/18 16:55 99.8 02/27/18 16:00 100.2 113 18 133/84 (100) 96 02/27/18 12:00 98.1 75 18 107/69 (82) 96 02/27/18 08:00 97.2 74 18 117/72 (87) 96 I/O 02/27/18 02/27/18 02/27/18 02/28/18 02/28/18 02/28/18 07:00 15:00 23:00 07:00 15:00 23:00 Intake Total 500 ml Output Total 360 ml Balance -360 ml 500 ml Intake Oral 500 ml Output Urine Total 360 ml # Voids 1 5 Imaging Last 24 hours Impressions Thoracic Spine CT 02/21/181943 Signed Impressions: Service Date/Time: Wednesday, February 21, 2018 19:49 - CONCLUSION: Intact thoracic spine. Scoliosis and mild degenerative changes as above. Dutch Baez MD Lumbar Spine CT 02/21/181943 Signed Impressions: Service Date/Time: Wednesday, February 21, 2018 19:49 - CONCLUSION: Intact lumbar spine. Mild degenerative changes at L4/L5 and L5/S1. Dutch Baez MD Pelvis X-Ray 02/21/181923 Signed Impressions: Service Date/Time: Wednesday, February 21, 2018 19:22 - CONCLUSION: No evidence of pelvic fracture. Dutch Baez MD Head CT 02/21/181923 Signed Impressions: Service Date/Time: Wednesday, February 21, 2018 19:45 - CONCLUSION: Negative noncontrast head CT. Dutch Baez MD Chest X-Ray 02/21/181923 Signed Impressions: Service Date/Time: Wednesday, February 21, 2018 19:22 - CONCLUSION: No acute abnormality demonstrated. Dutch Baez MD Chest CT 02/21/181923 Signed Impressions: Service Date/Time: Wednesday, February 21, 2018 19:49 - CONCLUSION: No acute abnormality demonstrated. Dutch Baez MD Cervical Spine CT 02/21/181923 Signed Impressions: Service Date/Time: Wednesday, February 21, 2018 19:45 - CONCLUSION: No fracture or subluxation of the cervical spine. Surgical and degenerative changes as above. Dutch Baez MD Abdomen/Pelvis CT 02/21/181923 Signed Impressions: Service Date/Time: Wednesday, February 21, 2018 19:49 - CONCLUSION: Negative trauma CT of the abdomen and pelvis. Tiny nonobstructing stone of the left kidney incidentally noted. Dutch Baez MD Objective Remarks LLE: +exfix. pin sites clean. traumatic wound shows evidence of drainage. nvi. 3 + swelling of lower ankle and foot. Majority of the blistered area is healthy but does show some darkening over the lateral aspect of the ankle.. Swelling is improving. +cap refill. Assessment & Plan Assessment and Plan 1) Left Tibial Pilon and distal fibula fxs s/p Exfix and I&D - POD 7 -NWb -elevate -Ice -pin care BID -daily dressing changes of traumatic wound --daily bacitracin and Adaptic over blistered areas daily -Toradol -swelling and traumatic skin is necessary for continual care at this time. Adverse consequences if discharged home -will continue to monitor Александр Haynes Jr. February 28, 2018 06:38
[2018-02-28 07:38] VITALS: BP 114/75; PULSE 90; RESP 18; TEMP 98.5; O2SAT 93
[2018-02-28] MEDS: DOCUSATE SODIUM 50 MG/SENNA 8.6 MG TAB PO SCH ×2 (08:58→21:21)
[2018-02-28] MEDS: LACTULOSE SYRUP 20 GM/30 ML CUP PO SCH (08:58)
[2018-02-28] MEDS: PREGABALIN 100 MG CAP PO SCH ×2 (08:58→21:21)
[2018-02-28] MEDS: ENOXAPARIN SODIUM 40 MG/0.4 ML SYRINGE SQ SCH (08:59)
[2018-02-28] MEDS: BACITRACIN TOP OINT 15 GM TUBE TOPICAL SCH (08:59)
[2018-02-28] MEDS: MAGNESIUM HYDROXIDE SUSP 30 ML CUP PO SCH ×2 (09:00→21:21)
--- NOTE | 2018-02-28 11:02 | HHI.PR ---
Subjective Subjective Notes Pain controlled Orthopedics wants to keep patient hospitalized to left ankle monitor closely Objective Vitals/I&O Vital Signs Date Time Temp Pulse Resp B/P (MAP) Pulse Ox O2 Delivery O2 Flow Rate FiO2 02/28/18 10:45 20 02/28/18 07:38 98.5 90 114/75 (88) 93 Labs Laboratory Tests Test 02/21/18 19:24 02/21/18 19:27 02/22/18 04:00 02/22/18 10:45 Bedside Hemoglobin 11.9 G/DL Bedside Hematocrit 35.0 % Bedside Sodium 139 MMOL/L Bedside Potassium 3.3 MMOL/L Bedside Chloride 103 MMOL/L Bedside Blood Urea Nitrogen 14 MG/DL Bedside Creatinine 1.1 MG/DL Bedside Glucose 95 MG/DL Prothrombin Time 10.8 SEC Prothromb Time International Ratio 1.1 RATIO Activated Partial Thromboplast Time 22.6 SEC Fibrinogen 185 mg/dL White Blood Count 8.0 TH/MM3 Red Blood Count 4.12 MIL/MM3 Hemoglobin 11.8 GM/DL Hematocrit 34.5 % Mean Corpuscular Volume 83.9 FL Mean Corpuscular Hemoglobin 28.7 PG Mean Corpuscular Hemoglobin Concent 34.2 % Red Cell Distribution Width 13.0 % Platelet Count 131 TH/MM3 Mean Platelet Volume 8.9 FL Neutrophils (%) (Auto) 87.7 % Lymphocytes (%) (Auto) 6.7 % Monocytes (%) (Auto) 5.4 % Eosinophils (%) (Auto) 0.1 % Basophils (%) (Auto) 0.1 % Neutrophils # (Auto) 7.0 TH/MM3 Lymphocytes # (Auto) 0.5 TH/MM3 Monocytes # (Auto) 0.4 TH/MM3 Eosinophils # (Auto) 0.0 TH/MM3 Basophils # (Auto) 0.0 TH/MM3 CBC Comment DIFF FINAL Differential Comment Blood Urea Nitrogen 12 MG/DL Creatinine 1.06 MG/DL Random Glucose 129 MG/DL Total Protein 5.9 GM/DL Albumin 3.3 GM/DL Calcium Level 7.7 MG/DL Alkaline Phosphatase 54 U/L Aspartate Amino Transf (AST/SGOT) 18 U/L Alanine Aminotransferase (ALT/SGPT) 31 U/L Total Bilirubin 0.3 MG/DL Sodium Level 143 MEQ/L Potassium Level 4.0 MEQ/L Chloride Level 109 MEQ/L Carbon Dioxide Level 26.5 MEQ/L Anion Gap 8 MEQ/L Estimat Glomerular Filtration Rate 60 ML/MIN Urine Color YELLOW Urine Turbidity CLEAR Urine pH 6.5 Urine Specific [place] 1.020 Urine Protein NEG mg/dL Urine Glucose (UA) NEG mg/dL Urine Ketones NEG mg/dL Urine Occult Blood NEG Urine Nitrite NEG Urine Bilirubin NEG Urine Urobilinogen LESS THAN 2.0 MG/DL Urine Leukocyte Esterase NEG Urine RBC LESS THAN 1 /hpf Urine WBC 1 /hpf Urine Mucus FEW /lpf Microscopic Urinalysis Comment CULT NOT INDICATED Urine Opiates Screen POS Urine Barbiturates Screen NEG Urine Amphetamines Screen POS Urine Benzodiazepines Screen NEG Urine Cocaine Screen NEG Urine Cannabinoids Screen NEG Radiology Last Impressions Thoracic Spine CT 02/21/181943 Signed Impressions: Service Date/Time: Wednesday, February 21, 2018 19:49 - CONCLUSION: Intact thoracic spine. Scoliosis and mild degenerative changes as above. Dutch Baez MD Lumbar Spine CT 02/21/181943 Signed Impressions: Service Date/Time: Wednesday, February 21, 2018 19:49 - CONCLUSION: Intact lumbar spine. Mild degenerative changes at L4/L5 and L5/S1. Dutch Baez MD Pelvis X-Ray 02/21/181923 Signed Impressions: Service Date/Time: Wednesday, February 21, 2018 19:22 - CONCLUSION: No evidence of pelvic fracture. Dutch Baez MD Head CT 02/21/181923 Signed Impressions: Service Date/Time: Wednesday, February 21, 2018 19:45 - CONCLUSION: Negative noncontrast head CT. Dutch Baez MD Chest X-Ray 02/21/181923 Signed Impressions: Service Date/Time: Wednesday, February 21, 2018 19:22 - CONCLUSION: No acute abnormality demonstrated. Dutch Baez MD Chest CT 02/21/181923 Signed Impressions: Service Date/Time: Wednesday, February 21, 2018 19:49 - CONCLUSION: No acute abnormality demonstrated. Dutch Baez MD Cervical Spine CT 4/24/18 1924 Signed Impressions: Service Date/Time: Wednesday, February 21, 2018 19:45 - CONCLUSION: No fracture or subluxation of the cervical spine. Surgical and degenerative changes as above. Dutch Baez MD Abdomen/Pelvis CT 02/21/18 1924 Signed Impressions: Service Date/Time: Wednesday, February 21, 2018 19:49 - CONCLUSION: Negative trauma CT of the abdomen and pelvis. Tiny nonobstructing stone of the left kidney incidentally noted. Dutch Baez MD Lower Extremity CT 02/21/18 0000 Signed Impressions: Service Date/Time: Thursday, February 22, 2018 02:10 - CONCLUSION: 1. Severely comminuted intra-articular fracture of the distal tibia and also comminuted distal fibular fracture. Small avulsion fractures of the talus laterally. Ricardo Álvarez MD Ankle X-Ray 02/21/18 0000 Signed Impressions: Service Date/Time: Wednesday, February 21, 2018 21:36 - CONCLUSION: External fixation of comminuted distal tibia and fibula fractures. Near-anatomic alignment. Dutch Baez MD Narrative Exam GENERAL: 38-year-old well-nourished, well developed male lying in bed in no acute distress. SKIN: Warm and dry. HEAD: Normocephalic. EYES: Pupils equal and round. No scleral icterus. ENT: No nasal bleeding or discharge. Mucous membranes pink and moist. NECK: Trachea midline. No JVD. CARDIOVASCULAR: Regular rate and rhythm. RESPIRATORY: No accessory muscle use. Lungs clear to auscultation. Breath sounds equal bilaterally. GASTROINTESTINAL: Abdomen soft, non-tender, nondistended. + BS. MUSCULOSKELETAL: Extremities without cyanosis, +2 LLE edema. Left ankle external fixator in place. MAEW, + perfused NEUROLOGICAL: Awake and alert. Normal speech. A/P Problem List: (1) Open left ankle fracture ICD Codes: S82.892B - Other fracture of left lower leg, initial encounter for open fracture type I or II Status: Acute (2) Injury resulting from fall from height ICD Codes: W17.89XA - Other fall from one level to another, initial encounter Status: Acute Assessment and Plan FALSE PASS: Fell off scaffolding from approximately 16 feet. No LOC. + amphetamines INJURIES: LEFT distal tib-fib fx LEFT ankle fx/dislocation PMHx: Tobacco use 02/21: LEFT ankle reduced 02/21: LEFT ankle I&D w/ ex-fix placement LEFT distal tib-fib fx, LEFT ankle fx/dislocation Orthopedics consulted 02/21: LEFT ankle reduced 02/21: LEFT ankle I&D w/ ex-fix placement Awaiting orthopedic plan for ex-fix removal Pain control Pin care per orthopedics IV antibiotics per orthopedics OOB- PT and OT ordered Lovenox Plan of care discussed with patient and family member at bedside. Collaborating Trauma surgeon agrees with plan. Case management consulted to assist with discharge planning. Problem Qualifiers (1) Open left ankle fracture: Jerrell Guaman February 28, 2018 11:02
[2018-02-28 11:27] VITALS: BP 120/74; PULSE 95; RESP 18; TEMP 98.6; O2SAT 95
[2018-02-28 15:50] VITALS: BP 117/74; PULSE 98; RESP 18; TEMP 99.6; O2SAT 96
[2018-02-28 20:00] VITALS: BP 116/70; PULSE 98; RESP 20; TEMP 98.9; O2SAT 97
[2018-02-28] MEDS: traZODone HCL 50 MG TAB PO SCH (21:22)
[2018-02-28 22:29] VITALS: BP 120/64; PULSE 112
[2018-03-01] VITALS: BP 122/74; PULSE 119; RESP 20; TEMP 100.5; O2SAT 94
[2018-03-01] MEDS: HYDROmorphone HCL PF 2 MG/ML VIAL IV PUSH PRN ×3 (01:56→08:34)
[2018-03-01] MEDS: SODIUM CHLORIDE 0.9% FLUSH 10 ML FLUSH IV FLUSH PRN ×2 (04:31→08:34)
[2018-03-01] MEDS: IBUPROFEN 800 MG TAB PO SCH (06:41)
[2018-03-01] MEDS ORDERED: ENDO10TA8 PO (06:51)
[2018-03-01] MEDS ORDERED: XARE10TA PO (06:51)
[2018-03-01] MEDS: LACTULOSE SYRUP 20 GM/30 ML CUP PO SCH (07:43)
[2018-03-01] MEDS: MAGNESIUM HYDROXIDE SUSP 30 ML CUP PO SCH ×2 (07:43→20:05)
[2018-03-01 08:00] VITALS: BP 130/80; PULSE 116; RESP 19; TEMP 99.7; O2SAT 94
--- NOTE | 2018-03-01 08:16 | PD.ORT.PN ---
Subjective Subjective Remarks Pain is controlled and his leg is elevated Objective Vitals Vital Signs Date Time Temp Pulse Resp B/P (MAP) Pulse Ox O2 Delivery O2 Flow Rate FiO2 03/01/18 07:41 18 03/01/18 07:41 18 03/01/18 00:00 100.5 119 20 122/74 (90) 94 02/28/18 22:29 112 120/64 (82) 02/28/18 20:00 98.9 98 20 116/70 (85) 97 02/28/18 16:32 20 02/28/18 15:50 99.6 98 18 117/74 (88) 96 02/28/18 11:27 98.6 95 18 120/74 (89) 95 I/O 02/28/18 02/28/18 02/28/18 03/01/18 03/01/18 03/01/18 07:00 15:00 23:00 07:00 15:00 23:00 Intake Total 820 ml 400 ml Balance 820 ml 400 ml Intake Oral 820 ml 400 ml # Voids 3 3 3 # Bowel Movements 0 0 Imaging Last 24 hours Impressions [address] Spine CT 02/21/181943 Signed Impressions: Service Date/Time: Wednesday, February 21, 2018 19:49 - CONCLUSION: Intact thoracic spine. Scoliosis and mild degenerative changes as above. Dutch Baez MD Lumbar Spine CT 02/21/181943 Signed Impressions: Service Date/Time: Wednesday, February 21, 2018 19:49 - CONCLUSION: Intact lumbar spine. Mild degenerative changes at L4/L5 and L5/S1. Dutch Baez MD Pelvis X-Ray 02/21/181923 Signed Impressions: Service Date/Time: Wednesday, February 21, 2018 19:22 - CONCLUSION: No evidence of pelvic fracture. Dutch Baez MD Head CT 02/21/181923 Signed Impressions: Service Date/Time: Wednesday, February 21, 2018 19:45 - CONCLUSION: Negative noncontrast head CT. Dutch Baez MD Chest X-Ray 02/21/181923 Signed Impressions: Service Date/Time: Wednesday, February 21, 2018 19:22 - CONCLUSION: No acute abnormality demonstrated. Dutch Baez MD Chest CT 02/21/181923 Signed Impressions: Service Date/Time: Wednesday, February 21, 2018 19:49 - CONCLUSION: No acute abnormality demonstrated. Dutch Baez MD Cervical Spine CT 02/21/181923 Signed Impressions: Service Date/Time: Wednesday, February 21, 2018 19:45 - CONCLUSION: No fracture or subluxation of the cervical spine. Surgical and degenerative changes as above. Dutch Baez MD Abdomen/Pelvis CT 02/21/181923 Signed Impressions: Service Date/Time: Wednesday, February 21, 2018 19:49 - CONCLUSION: Negative trauma CT of the abdomen and pelvis. Tiny nonobstructing stone of the left kidney incidentally noted. Dutch Baez MD Objective Remarks LLE: +exfix. pin sites clean. traumatic wound shows evidence of drainage. nvi. 3 + swelling of lower ankle and foot. Majority of the blistered area is healthy but does show some darkening over the lateral aspect of the ankle.. Swelling is improving. +cap refill. Assessment & Plan Assessment and Plan 1) Left Tibial Pilon and distal fibula fxs s/p Exfix and I&D - POD 8 -NWb -elevate -Ice -pin care BID -daily dressing changes of traumatic wound --daily bacitracin and Adaptic over blistered areas daily -Case management for home daily dressing changes with bacitracin, Adaptic, 4 x 4's and Karl wraps Transfer to oral pain medications only. Plan for discharge to home and follow-up with Dr. Arias in 1 week Must have a walker and wheelchair before discharged to home Александр Haynes Jr. March 01, 2018 08:16
[2018-03-01] MEDS: DOCUSATE SODIUM 50 MG/SENNA 8.6 MG TAB PO SCH ×2 (08:33→20:06)
[2018-03-01] MEDS: PREGABALIN 100 MG CAP PO SCH ×2 (08:33→20:05)
[2018-03-01] MEDS: BACITRACIN TOP OINT 15 GM TUBE TOPICAL SCH (08:39)
[2018-03-01] MEDS: ENOXAPARIN SODIUM 40 MG/0.4 ML SYRINGE SQ SCH (09:33)
[2018-03-01] MEDS: diphenhydrAMINE HCL 25 MG CAP PO PRN ×2 (09:33→16:46)
--- NOTE | 2018-03-01 10:34 | HHI.PR ---
Subjective Subjective Notes RN reports patient with increased pain this AM post LLE dressing change x2 Resting comfortably now Transition to PO pain meds for tentative DC tomorrow Objective Vitals/I&O Vital Signs Date Time Temp Pulse Resp B/P (MAP) Pulse Ox O2 Delivery O2 Flow Rate FiO2 03/01/18 09:04 18 03/01/18 08:00 99.7 116 130/80 (97) 94 Labs Laboratory Tests Test 02/21/18 19:24 02/21/18 19:27 02/22/18 04:00 02/22/18 10:45 Bedside Hemoglobin 11.9 G/DL Bedside Hematocrit 35.0 % Bedside Sodium 139 MMOL/L Bedside Potassium 3.3 MMOL/L Bedside Chloride 103 MMOL/L Bedside Blood Urea Nitrogen 14 MG/DL Bedside Creatinine 1.1 MG/DL Bedside Glucose 95 MG/DL Prothrombin Time 10.8 SEC Prothromb Time International Ratio 1.1 RATIO Activated Partial Thromboplast Time 22.6 SEC Fibrinogen 185 mg/dL White Blood Count 8.0 TH/MM3 Red Blood Count 4.12 MIL/MM3 Hemoglobin 11.8 GM/DL Hematocrit 34.5 % Mean Corpuscular Volume 83.9 FL Mean Corpuscular Hemoglobin 28.7 PG Mean Corpuscular Hemoglobin Concent 34.2 % Red Cell Distribution Width 13.0 % Platelet Count 131 TH/MM3 Mean Platelet Volume 8.9 FL Neutrophils (%) (Auto) 87.7 % Lymphocytes (%) (Auto) 6.7 % Monocytes (%) (Auto) 5.4 % Eosinophils (%) (Auto) 0.1 % Basophils (%) (Auto) 0.1 % Neutrophils # (Auto) 7.0 TH/MM3 Lymphocytes # (Auto) 0.5 TH/MM3 Monocytes # (Auto) 0.4 TH/MM3 Eosinophils # (Auto) 0.0 TH/MM3 Basophils # (Auto) 0.0 TH/MM3 CBC Comment DIFF FINAL Differential Comment Blood Urea Nitrogen 12 MG/DL Creatinine 1.06 MG/DL Random Glucose 129 MG/DL Total Protein 5.9 GM/DL Albumin 3.3 GM/DL Calcium Level 7.7 MG/DL Alkaline Phosphatase 54 U/L Aspartate Amino Transf (AST/SGOT) 18 U/L Alanine Aminotransferase (ALT/SGPT) 31 U/L Total Bilirubin 0.3 MG/DL Sodium Level 143 MEQ/L Potassium Level 4.0 MEQ/L Chloride Level 109 MEQ/L Carbon Dioxide Level 26.5 MEQ/L Anion Gap 8 MEQ/L Estimat Glomerular Filtration Rate 60 ML/MIN Urine Color YELLOW Urine Turbidity CLEAR Urine pH 6.5 Urine Specific [place] 1.020 Urine Protein NEG mg/dL Urine Glucose (UA) NEG mg/dL Urine Ketones NEG mg/dL Urine Occult Blood NEG Urine Nitrite NEG Urine Bilirubin NEG Urine Urobilinogen LESS THAN 2.0 MG/DL Urine Leukocyte Esterase NEG Urine RBC LESS THAN 1 /hpf Urine WBC 1 /hpf Urine Mucus FEW /lpf Microscopic Urinalysis Comment CULT NOT INDICATED Urine Opiates Screen POS Urine Barbiturates Screen NEG Urine Amphetamines Screen POS Urine Benzodiazepines Screen NEG Urine Cocaine Screen NEG Urine Cannabinoids Screen NEG Radiology Last Impressions Thoracic Spine CT 02/21/181943 Signed Impressions: Service Date/Time: Wednesday, February 21, 2018 19:49 - CONCLUSION: Intact thoracic spine. Scoliosis and mild degenerative changes as above. Dutch Baez MD Lumbar Spine CT 02/21/181943 Signed Impressions: Service Date/Time: Wednesday, February 21, 2018 19:49 - CONCLUSION: Intact lumbar spine. Mild degenerative changes at L4/L5 and L5/S1. Dutch Baez MD Pelvis X-Ray 02/21/181923 Signed Impressions: Service Date/Time: Wednesday, February 21, 2018 19:22 - CONCLUSION: No evidence of pelvic fracture. Dutch Baez MD Head CT 02/21/181923 Signed Impressions: Service Date/Time: Wednesday, February 21, 2018 19:45 - CONCLUSION: Negative noncontrast head CT. Dutch Baez MD Chest X-Ray 02/21/181923 Signed Impressions: Service Date/Time: Wednesday, February 21, 2018 19:22 - CONCLUSION: No acute abnormality demonstrated. Dutch Baez MD Chest CT 02/21/181923 Signed Impressions: Service Date/Time: Wednesday, February 21, 2018 19:49 - CONCLUSION: No acute abnormality demonstrated. Dutch Baez MD Cervical Spine CT 02/21/181923 Signed Impressions: Service Date/Time: Wednesday, February 21, 2018 19:45 - CONCLUSION: No fracture or subluxation of the cervical spine. Surgical and degenerative changes as above. Dutch Baez MD Abdomen/Pelvis CT 02/21/181923 Signed Impressions: Service Date/Time: Wednesday, February 21, 2018 19:49 - CONCLUSION: Negative trauma CT of the abdomen and pelvis. Tiny nonobstructing stone of the left kidney incidentally noted. Dutch Baez MD Lower Extremity CT 02/21/18 0000 Signed Impressions: Service Date/Time: Thursday, February 22, 2018 02:10 - CONCLUSION: 1. Severely comminuted intra-articular fracture of the distal tibia and also comminuted distal fibular fracture. Small avulsion fractures of the talus laterally. Ricardo Álvarez MD Ankle X-Ray 02/21/18 0000 Signed Impressions: Service Date/Time: Wednesday, February 21, 2018 21:36 - CONCLUSION: External fixation of comminuted distal tibia and fibula fractures. Near-anatomic alignment. Dutch Baez MD Narrative Exam GENERAL: 38-year-old well-nourished, well developed male lying in bed in no acute distress. SKIN: Warm and dry. HEAD: Normocephalic. EYES: Pupils equal and round. No scleral icterus. ENT: No nasal bleeding or discharge. Mucous membranes pink and moist. NECK: Trachea midline. No JVD. CARDIOVASCULAR: Regular rate and rhythm. RESPIRATORY: No accessory muscle use. Lungs clear to auscultation. Breath sounds equal bilaterally. GASTROINTESTINAL: Abdomen soft, non-tender, nondistended. + BS. MUSCULOSKELETAL: Extremities without cyanosis, +1 LLE edema. Left ankle external fixator in place. MAEW, + perfused NEUROLOGICAL: Awake and alert. Normal speech. A/P Problem List: (1) Open left ankle fracture ICD Codes: S82.892B - Other fracture of left lower leg, initial encounter for open fracture type I or II Status: Acute (2) Injury resulting from fall from height ICD Codes: W17.89XA - Other fall from one level to another, initial encounter Status: Acute Assessment and Plan PO[place]AY [place]: Fell off scaffolding from approximately 16 feet. No LOC. + amphetamines INJURIES: LEFT distal tib-fib fx LEFT ankle fx/dislocation PMHx: Tobacco use 02/21: LEFT ankle reduced 02/21: LEFT ankle I&D w/ ex-fix placement LEFT distal tib-fib fx, LEFT ankle fx/dislocation Orthopedics consulted 02/21: LEFT ankle reduced 02/21: LEFT ankle I&D w/ ex-fix placement Orthopedics planning for ex-fix removal in 1-2 weeks Pain control- Increased Fentanyl patch and added Robaxin. DC IV Dilaudid Pin care per orthopedics Antibiotics per orthopedics OOB- PT and OT ordered Lovenox DME ordered Plan of care discussed with patient and RN at bedside. Collaborating Trauma surgeon agrees with plan. Case management consulted to assist with discharge planning. D/W CM. CM to inform patient of wheelchair options for rental and purchase as patient is self - pay. Plan for DC tomorrow Attending Statement The exam, history, and the medical decision-making described in the above note were completed with the assistance of the mid-level provider. I reviewed and agree with the findings presented. I attest that I had a [id number] encounter with the patient on the same day, and personally performed and documented my assessment and findings in the medical record. Problem Qualifiers (1) Open left ankle fracture: Jerrell Guaman March 01, 2018 10:34 Adolfo Johnson MD March 01, 2018 11:37
[2018-03-01] MEDS: KETOROLAC TROMETHAMINE 30 MG/ML (IVP) VIAL IV PUSH PRN ×2 (11:43→21:26)
[2018-03-01 12:22] VITALS: BP 119/67; PULSE 79; RESP 18; TEMP 97.6; O2SAT 97
[2018-03-01] MEDS ORDERED: fentaNYL 75 MCG/HR PATCH T-DERMAL SCH (13:00)
[2018-03-01] MEDS: METHOCARBAMOL 500 MG TAB PO SCH ×2 (13:16→21:22)
[2018-03-01 16:21] VITALS: BP 132/74; PULSE 95; RESP 17; TEMP 98.5; O2SAT 95
[2018-03-01 20:00] VITALS: BP 118/67; PULSE 82; RESP 18; TEMP 98.7; O2SAT 96
[2018-03-01] MEDS: traZODone HCL 50 MG TAB PO SCH (20:05)
[2018-03-01] MEDS ORDERED: MELATONIN 5 MG TAB PO SCH (21:00)
[2018-03-02] VITALS: BP 116/68; PULSE 85; RESP 20; TEMP 98.7; O2SAT 96
[2018-03-02] MEDS: KETOROLAC TROMETHAMINE 30 MG/ML (IVP) VIAL IV PUSH PRN ×2 (04:22→10:37)
[2018-03-02] MEDS: METHOCARBAMOL 500 MG TAB PO SCH ×2 (06:21→16:02)
--- NOTE | 2018-03-02 06:48 | HHI.FF ---
Face to Face Verification Diagnosis: (1) Open left ankle fracture Physical Therapy Gait training Right LE Weight Bearing: WB as tolerated Left LE Weight Bearing: Non WB Nursing Nursing: Pin care, Teach and assist BID pin care Dressing Changes: Daily dressing change, Karl wrap, 4x4s, Xeroform (and bacitracin) I have seen patient Mykel Ortega on 03/02/18. My clinical findings support the need for the requested home health care services because: Ltd mobility - disease progression I certify that my clinical findings support that this patient is homebound because: Post-op weakness Mookie Pretty/Biophysics Teacher STAN March 02, 2018 06:48
--- NOTE | 2018-03-02 06:49 | PD.ORT.PN ---
Subjective Subjective Remarks s/p I&D with application of exfix left ankle reports pain. resting comfortably currently. Objective Vitals Vital Signs Date Time Temp Pulse Resp B/P (MAP) Pulse Ox O2 Delivery O2 Flow Rate FiO2 03/02/18 00:00 98.7 85 20 116/68 (84) 96 03/01/18 20:00 98.7 82 18 118/67 (84) 96 03/01/18 17:47 18 03/01/18 16:55 18 03/01/18 16:21 98.5 95 17 132/74 (93) 95 03/01/18 12:43 18 03/01/18 12:22 97.6 79 18 119/67 (84) 97 03/01/18 09:04 18 03/01/18 09:04 18 03/01/18 08:00 99.7 116 19 130/80 (97) 94 03/01/18 07:41 18 I/O 03/01/18 03/01/18 03/01/18 03/02/18 03/02/18 03/02/18 07:00 15:00 23:00 07:00 15:00 23:00 Intake Total 400 ml 1000 ml Output Total 1050 ml Balance 400 ml -50 ml Intake Oral 400 ml 1000 ml Output Urine Total 1050 ml # Voids 3 3 # Bowel Movements 0 0 Imaging Last 24 hours Impressions [address] Spine CT 02/21/181943 Signed Impressions: Service Date/Time: Wednesday, February 21, 2018 19:49 - CONCLUSION: Intact thoracic spine. Scoliosis and mild degenerative changes as above. Dutch Baez MD Lumbar Spine CT 02/21/181943 Signed Impressions: Service Date/Time: Wednesday, February 21, 2018 19:49 - CONCLUSION: Intact lumbar spine. Mild degenerative changes at L4/L5 and L5/S1. Dutch Baez MD Pelvis X-Ray 02/21/181923 Signed Impressions: Service Date/Time: Wednesday, February 21, 2018 19:22 - CONCLUSION: No evidence of pelvic fracture. Dutch Baez MD Head CT 02/21/181923 Signed Impressions: Service Date/Time: Wednesday, February 21, 2018 19:45 - CONCLUSION: Negative noncontrast head CT. Dutch Baez MD Chest X-Ray 02/21/181923 Signed Impressions: Service Date/Time: Wednesday, February 21, 2018 19:22 - CONCLUSION: No acute abnormality demonstrated. Dutch Baez MD Chest CT 02/21/181923 Signed Impressions: Service Date/Time: Wednesday, February 21, 2018 19:49 - CONCLUSION: No acute abnormality demonstrated. Dutch Baez MD Cervical Spine CT 02/21/181923 Signed Impressions: Service Date/Time: Wednesday, February 21, 2018 19:45 - CONCLUSION: No fracture or subluxation of the cervical spine. Surgical and degenerative changes as above. Dutch Baez MD Abdomen/Pelvis CT 02/21/181923 Signed Impressions: Service Date/Time: Wednesday, February 21, 2018 19:49 - CONCLUSION: Negative trauma CT of the abdomen and pelvis. Tiny nonobstructing stone of the left kidney incidentally noted. Dutch Baez MD Objective Remarks LLE: +exfix. pin sites clean. traumatic wound shows evidence of drainage. nvi. 3 + swelling of lower ankle and foot. Majority of the blistered area is healthy but does show some darkening over the lateral aspect of the ankle.. Swelling is improving. +cap refill. Assessment & Plan Assessment and Plan 1) Left Tibial Pilon and distal fibula fxs s/p Exfix and I&D - POD 9 -NWb -elevate -Ice -pin care BID -daily dressing changes of traumatic wound --daily bacitracin and Adaptic over blistered areas daily -Case management for home daily dressing changes with bacitracin, Adaptic, 4 x 4's and Karl wraps -Transfer to oral pain medications only. Plan for discharge to home and follow-up with Dr. Arias in 1 week -Must have a walker and wheelchair before discharged to home Mookie Pretty PA/Clinical Unit Educator PA March 02, 2018 06:49
[2018-03-02 07:32] VITALS: BP 125/70; PULSE 102; RESP 19; TEMP 98.6; O2SAT 96
[2018-03-02] MEDS: BACITRACIN TOP OINT 15 GM TUBE TOPICAL SCH (09:00)
[2018-03-02] MEDS: PREGABALIN 100 MG CAP PO SCH (09:01)
[2018-03-02] MEDS: DOCUSATE SODIUM 50 MG/SENNA 8.6 MG TAB PO SCH (09:01)
[2018-03-02] MEDS: ENOXAPARIN SODIUM 40 MG/0.4 ML SYRINGE SQ SCH (09:02)
[2018-03-02] MEDS: MAGNESIUM HYDROXIDE SUSP 30 ML CUP PO SCH (09:05)
[2018-03-02] MEDS: LACTULOSE SYRUP 20 GM/30 ML CUP PO SCH (09:05)
[2018-03-02] MEDS: SODIUM CHLORIDE 0.9% FLUSH 10 ML FLUSH IV FLUSH PRN (10:40)
[2018-03-02] MEDS ORDERED: METH500T3 PO (11:19)
[2018-03-02] MEDS ORDERED: LYRI100C PO (11:20)
[2018-03-02 11:43] VITALS: BP 128/71; PULSE 95; RESP 19; TEMP 99.6; O2SAT 94
--- NOTE | 2018-03-02 11:53 | HHI.DS ---
Discharge Summary Admission Date Feb 21, 2018 at 20:02 Discharge Date: March 02, 2018 Admitting Diagnosis Fall off scaffolding, open left ankle fx (1) Open left ankle fracture ICD Codes: S82.892B - Other fracture of left lower leg, initial encounter for open fracture type I or II Status: Acute (2) Injury resulting from fall from height ICD Codes: W17.89XA - Other fall from one level to another, initial encounter Status: Acute Brief History S/P Fall Imaging Last Impressions Thoracic Spine CT 02/21/181943 Signed Impressions: Service Date/Time: Wednesday, February 21, 2018 19:49 - CONCLUSION: Intact thoracic spine. Scoliosis and mild degenerative changes as above. Dutch Baez MD Lumbar Spine CT 02/21/181943 Signed Impressions: Service Date/Time: Wednesday, February 21, 2018 19:49 - CONCLUSION: Intact lumbar spine. Mild degenerative changes at L4/L5 and L5/S1. Dutch Baez MD Pelvis X-Ray 02/21/181923 Signed Impressions: Service Date/Time: Wednesday, February 21, 2018 19:22 - CONCLUSION: No evidence of pelvic fracture. Dutch Baez MD Head CT 02/21/181923 Signed Impressions: Service Date/Time: Wednesday, February 21, 2018 19:45 - CONCLUSION: Negative noncontrast head CT. Dutch Baez MD Chest X-Ray 02/21/181923 Signed Impressions: Service Date/Time: Wednesday, February 21, 2018 19:22 - CONCLUSION: No acute abnormality demonstrated. Dutch Baez MD Chest CT 02/21/181923 Signed Impressions: Service Date/Time: Wednesday, February 21, 2018 19:49 - CONCLUSION: No acute abnormality demonstrated. Dutch Baez MD Cervical Spine CT 02/21/181923 Signed Impressions: Service Date/Time: Wednesday, February 21, 2018 19:45 - CONCLUSION: No fracture or subluxation of the cervical spine. Surgical and degenerative changes as above. Dutch Baez MD Abdomen/Pelvis CT 02/21/181923 Signed Impressions: Service Date/Time: Wednesday, February 21, 2018 19:49 - CONCLUSION: Negative trauma CT of the abdomen and pelvis. Tiny nonobstructing stone of the left kidney incidentally noted. Dutch Baez MD Lower Extremity CT 02/21/18 0000 Signed Impressions: Service Date/Time: Thursday, February 22, 2018 02:10 - CONCLUSION: 1. Severely comminuted intra-articular fracture of the distal tibia and also comminuted distal fibular fracture. Small avulsion fractures of the talus laterally. Ricardo Álvarez MD Ankle X-Ray 02/21/18 0000 Signed Impressions: Service Date/Time: Wednesday, February 21, 2018 21:36 - CONCLUSION: External fixation of comminuted distal tibia and fibula fractures. Near-anatomic alignment. Dutch Baez MD PE at Discharge GENERAL: 38-year-old well-nourished, well developed male lying in bed in no acute distress. SKIN: Warm and dry. HEAD: Normocephalic. EYES: Pupils equal and round. No scleral icterus. ENT: No nasal bleeding or discharge. Mucous membranes pink and moist. NECK: Trachea midline. No JVD. CARDIOVASCULAR: Regular rate and rhythm. RESPIRATORY: No accessory muscle use. Lungs clear to auscultation. Breath sounds equal bilaterally. GASTROINTESTINAL: Abdomen soft, non-tender, nondistended. + BS. MUSCULOSKELETAL: Extremities without cyanosis, +1 LLE edema. Left ankle external fixator in place. MAEW, + perfused NEUROLOGICAL: Awake and alert. Normal speech. Hospital Course [place]: Fell off scaffolding from approximately 16 feet. No LOC. + amphetamines INJURIES: LEFT distal tib-fib fx LEFT ankle fx/dislocation PMHx: Tobacco use 02/21: LEFT ankle reduced 02/21: LEFT ankle I&D w/ ex-fix placement LEFT distal tib-fib fx, LEFT ankle fx/dislocation Orthopedics consulted and cleared for DC. F/U outpatient 02/21: LEFT ankle reduced 02/21: LEFT ankle I&D w/ ex-fix placement Orthopedics planning for ex-fix removal in 1-2 weeks Pain controlled Pin care and dressing changes per orthopedics OOB- PT and OT ordered Xarelto on DC F/U with PCP in 1 week Plan of care discussed with patient and RN at bedside. Collaborating Trauma surgeon agrees with plan. Case management consulted to assist with discharge planning. Patient is clear from trauma surgery standpoint to safely discharge home. Pt Condition on Discharge: Stable Discharge Disposition: Discharge Home Discharge Instructions DIET: Follow Instructions for: As Tolerated, No Restrictions Activities you can perform: See Additionl Instruction Activities to Avoid: Concussion Sports, Contact Sports, Weight Bearing, Strenuous Activity Other Activity Instructions: Nonweight bearing left leg Attending Statement The exam, history, and the medical decision-making described in the above note were completed with the assistance of the mid-level provider. I reviewed and agree with the findings presented. I attest that I had a [id number] encounter with the patient on the same day, and personally performed and documented my assessment and findings in the medical record. Jerrell Guaman March 02, 2018 11:53 Adolfo Johnson MD March 02, 2018 20:40
[2018-03-04] MEDS ORDERED: REMOVE OLD DURAGESIC (FENTANYL) PATCH T-DERMAL SCH (13:00)
== END 2018-03-02 17:26 | disposition home or self-care (01) | DRG 492 ==
LOC: NEPI 19:22 → NEDA 20:02 → EDBD 20:02 → N06B 21:36
PROVIDERS: ADMIT Surgery; ATTEND Surgery
PROC: 0QSH35Z Reposition Left Tibia with External Fixation Device, Percutaneous Approach (ICD-10-PCS; 2018-02-21)
PROC: 0SSGXZZ Reposition Left Ankle Joint, External Approach (ICD-10-PCS; 2018-02-21)
PROC: 0QSK35Z Reposition Left Fibula with External Fixation Device, Percutaneous Approach (ICD-10-PCS; principal; 2018-02-21 20:51)
DX: S82.392B Other fracture of lower end of left tibia, initial encounter for open fracture type I or II (principal); S82.832B Other fracture of upper and lower end of left fibula, initial encounter for open fracture type I or II; W12.XXXA Fall on and from scaffolding, initial encounter; M54.2 Cervicalgia; G89.29 Other chronic pain; F17.210 Nicotine dependence, cigarettes, uncomplicated; Z98.1 Arthrodesis status
CPT/HCPCS: 28435; 70450; 71045; 71260; 72125; 72129; 72132; 72170; 73600; 73700; 74177; 76000; 80048; 80053; 80307; 81001; 85025; 85384; 85610; 85730; 86850; 86900; 86901; 90471; 90715; 94150; 96374; 96375; 99291; C1713; C9113; G0390; J0131; J0330; J0690; J1100; J1170; J1580; J1650; J1885; J2175; J2270; J2370; J2405; J3010; J3370; J3410; J7120; L0150; Q9967

== ENCOUNTER 2018-04-08 19:34 | Inpatient (IN) | payer SELFPAY ==
[~2018-04-08] VITALS: Ht 188 cm; Wt 94.1 kg
[~2018-04-08 19:34] MED LIST changes: -DEXAMETHASONE SOD PHOS 4 MG/ML VIAL IV ONE; +ENDO10TA8 PO; -LIDOCAINE HCL 1% PF 5 ML SYRINGE OTHER ONE; +LYRI100C PO; +MAGN30S PO; +METH500T3 PO; -ONDANSETRON HCL 4 MG/2 ML VIAL IV ONE; +PERI PO; -PHENYLEPH/NS 1000 MCG/10 ML SYR IV ONE; -PROPOFOL 200 MG/20 ML AMP IV ONE; -SUCCINYLCHOLINE CHLORIDE 100 MG/5 ML SYRINGE IV PUSH ONE; +WALKER WHEELS/F1 MIS; +WHEEMIS3; +XARE10TA PO
[2018-04-08 19:44] VITALS: BP 139/71; PULSE 99; RESP 18; TEMP 97.5; O2SAT 97
--- NOTE | 2018-04-08 20:35 | PD ---
HPI Chief Complaint: Skin Problem Time Seen by Provider: 20:16 Travel History International Travel<30 days: No Contact w/Intl Traveler<30days: No Traveled to known affect area: No History of Present Illness HPI 38yo M with PSH of left ankle I&D and ex-fix placement by Dr. Pinon 02/21/18 presents to the ED with c/o bone exposure in the ulcer in left ankle for a few days. Pt also said that 3 our of the 4 screws had purulent discharge yesterday. Denies any fever, chest pain, sob, n/v, abdominal pain, focal weakness or numbness. PFSH Past Medical History Medical History: Denies Significant Hx Diminished Hearing: No Tetanus Vaccination: < 5 Years Influenza Vaccination: No Social History Alcohol Use: No Tobacco Use: Yes (1 pack per day) Substance Use: No Allergies-Medications (Allergen,Severity, Reaction): Coded Allergies: No Known Allergies (Unverified , 04/08/18) Reported Meds & Prescriptions Reported Meds & Active Scripts Active Endocet (Oxycodone-Acetaminophen) 10-325 mg Tab 1 Tab PO Q4H PRN Wheelchair Elevated Leg (Device) 1 Mis Mis Ea .XX DIRECTED Walker with Front Wheels (Device) 1 Mis Mis Ea .XX DIRECTED Gnp Senna Plus 8.6-50 mg (Sennosides-Docusate Sodium) 8.6 Mg-50 Mg Tab 1 Tab PO BID 5 Days Review of Systems Except as stated in HPI: all other systems reviewed are Neg Physical Exam Narrative GENERAL: 38yo M in mild distress. SKIN: Focused skin assessment warm/dry. HEAD: Atraumatic. Normocephalic. EYES: Pupils equal and round. No scleral icterus. No injection or drainage. ENT: No nasal bleeding or discharge. Mucous membranes pink and moist. NECK: Trachea midline. No JVD. CARDIOVASCULAR: Regular rate and rhythm. No murmur appreciated. RESPIRATORY: No accessory muscle use. Clear to auscultation. Breath sounds equal bilaterally. GASTROINTESTINAL: Abdomen soft, non-tender, nondistended. MUSCULOSKELETAL: Left ankle: +6cm by 6bm 6cm ulcer dorsum distal tib/fib with small lateral bone exposure. External fixation screws in place and do not express any purulent discharge but pt is tender to palpation. There is also another ulcer about 2cm by 8cm. NEUROLOGICAL: Awake and alert. No obvious cranial nerve deficits. Motor grossly within normal limits. Normal speech. PSYCHIATRIC: Appropriate mood and affect; insight and judgment normal. Data Data Last Documented VS Vital Signs Date Time Temp Pulse Resp B/P (MAP) Pulse Ox O2 Delivery O2 Flow Rate FiO2 04/08/18 19:44 97.5 99 18 139/71 (93) 97 Orders Orders Ankle, Limited (Ap&Lat) (04/08/18 ) Complete Blood Count With Diff (04/08/18 21:10) Basic Metabolic Panel (Bmp) (04/08/18 21:10) Prothrombin Time / Inr (Pt) (04/08/18 21:10) Act Partial Throm Time (Ptt) (04/08/18 21:10) Type And Screen (04/08/18 21:10) Ketorolac Inj (Toradol Inj) (04/08/18 22:15) Npo After Midnight W/ Po Meds (04/09/18 Breakfast) Admit Order (Ed Use Only) (04/08/18 22:39) Consult Orthopedic (04/08/18 ) Labs Laboratory Tests Test 04/08/18 21:25 White Blood Count 6.8 TH/MM3 Red Blood Count 4.74 MIL/MM3 Hemoglobin 12.7 GM/DL Hematocrit 38.7 % Mean Corpuscular Volume 81.7 FL Mean Corpuscular Hemoglobin 26.8 PG Mean Corpuscular Hemoglobin Concent 32.8 % Red Cell Distribution Width 13.8 % Platelet Count 234 TH/MM3 Mean Platelet Volume 7.3 FL Neutrophils (%) (Auto) 56.8 % Lymphocytes (%) (Auto) 28.5 % Monocytes (%) (Auto) 13.1 % Eosinophils (%) (Auto) 0.9 % Basophils (%) (Auto) 0.7 % Neutrophils # (Auto) 3.9 TH/MM3 Lymphocytes # (Auto) 2.0 TH/MM3 Monocytes # (Auto) 0.9 TH/MM3 Eosinophils # (Auto) 0.1 TH/MM3 Basophils # (Auto) 0.0 TH/MM3 CBC Comment AUTO DIFF Prothrombin Time 10.6 SEC Prothromb Time International Ratio 1.0 RATIO Activated Partial Thromboplast Time 27.4 SEC Blood Urea Nitrogen 13 MG/DL Creatinine 1.11 MG/DL Random Glucose 86 MG/DL Calcium Level 9.2 MG/DL Sodium Level 138 MEQ/L Potassium Level 3.8 MEQ/L Chloride Level 101 MEQ/L Carbon Dioxide Level 25.5 MEQ/L Anion Gap 12 MEQ/L Estimat Glomerular Filtration Rate 73 ML/MIN MDM Medical Decision Making Medical Screen Exam Complete: Yes Emergency Medical Condition: Yes Differential Diagnosis Infection vs. bone exposure Narrative Course 38yo M with ex fix left ankle by Dr. Pinon in January 2018 here stating there is some bone exposure in the ulcer in left ankle for a few days. I discussed case with Dr. Pinon's PA and he recommended admitting to medicine, NPO after midnight. Labs reviewed, no leukocytosis. BMP unremarkable. Xray left ankle showed external fixation of severely comminuted distal tibial and fibular fractures with abnormal widening of the ankle joint. Early periosteal new bone formation. No definite bony destruction identified. Discussed with Dr. Macias and accepted to her service. Diagnosis Primary Impression: Post-operative complication Admitting Information Admitting Physician Requests: Observation Saniya Avitia DO Apr 08, 2018 20:35
--- NOTE | 2018-04-08 21:01 | RADRPT ---
EXAM DATE: 04/08/2018 8:49 PM EDT AGE/SEX: 38 years / Male INDICATIONS: Left ankle pain and swelling. Possible infection. CLINICAL DATA: This is the patient's initial encounter. Patient reports that signs and symptoms have been present for 1 week and indicates a pain score of 10/10. MEDICAL/SURGICAL HISTORY: . Left ankle fracture. . Ex-fix left ankle. COMPARISON: [facility], ANKLE LEFT LIMITED (AP&LAT), 02/21/2018. . FINDINGS: There is external fixation across a very comminuted distal tibial and fibular fracture with overlying soft tissue swelling. Early periosteal reaction is noted. CONCLUSION: External fixation of severely comminuted distal tibial and fibular fractures with abnormal widening o f the ankle joint. Early periosteal new bone formation. No definite bony destruction identified. Electronically signed by: Ricardo Álvarez MD 04/08/2018 9:00 PM EDT
[2018-04-08 21:42] LABS: AUTOMATED NEUTROPHIL # 3.9 TH/MM3 (1.8-7.7); BASOPHIL % 0.7 % (0.0-2.0); EOSINOPHIL # 0.1 TH/MM3 (0-0.4); EOSINOPHIL % 0.9 % (0.0-4.0); HEMATOCRIT 38.7 % (39.0-51.0); HEMOGLOBIN 12.7 GM/DL (13.0-17.0); LYMPH % 28.5 % (9.0-44.0); MEAN CELL VOLUME 81.7 FL (80.0-100.0); MEAN CORPUSCULAR HEMOGLOBIN 26.8 PG (27.0-34.0); MEAN CORPUSCULAR HGB CONC 32.8 % (32.0-36.0); MEAN PLATELET VOLUME 7.3 FL (7.0-11.0); MONO % 13.1 % (0.0-8.0); MONOCYTE # 0.9 TH/MM3 (0-0.9); NEUT % 56.8 % (16.0-70.0); PLATELET COUNT 234 TH/MM3 (150-450); RED BLOOD COUNT 4.74 MIL/MM3 (4.50-5.90); RED CELL DISTRIBUTION WIDTH 13.8 % (11.6-17.2); WHITE BLOOD COUNT 6.8 TH/MM3 (4.0-11.0)
[2018-04-08 21:54] LABS: BICARBONATE 25.5 MEQ/L (21.0-32.0); CALCIUM 9.2 MG/DL (8.5-10.1); CREATININE 1.11 MG/DL (0.60-1.30); PROTHROMBIN TIME - PATIENT 10.6 SEC (9.8-11.6)
[2018-04-08 22:00] VITALS: BP 138/81; PULSE 78; RESP 16; O2SAT 95
[2018-04-08] MEDS ORDERED: KETOROLAC TROMETHAMINE 30 MG/ML (IVP) VIAL IV PUSH ONE (22:15)
--- NOTE | 2018-04-08 22:43 | HHI.HP ---
HPI Service [facility] Primary Care Physician No Primary Care Physician Admission Diagnosis Post op complication Diagnoses: (1) Postoperative wound infection Diagnosis: Principal (2) Tobacco abuse Diagnosis: Principal Travel History International Travel<30 Days: No Contact w/Intl Traveler <30 Da: No Traveled to Known Affected Are: No History of Present Illness This is a 46-year-old male with no significant PMH who presented to the ER with complaints of left foot pain and drainage from multiple wounds. Previous admit 02/21-03/02/18 as a trauma after fall from scaffolding w/ open left ankle fracture , s/p Left Ankle I&D and Ex-Fix Placement by Dr. Arias on 02/21/18. States he' s noticed several ulcers on his left foot 2wks ago, was seen by Dr. Arias at that time, however now notes "bone sticking out" of one ulcer and purulent drainage. Denies fever, chills or injury. On arrival, BP 139/71, HR 99, O2 sat 97% on RA, Afebrile. WBC normal. Chemistry essentially unremarkable. INR 1.0. Ankle X-ray with external fixation of severely comminuted distal tibial and fibular fractures with abnormal widening of the ankle joint, early periosteal new bone formation, no bony destruction. On exam, patient noted to have several ulcers with bone exposure, +edema/erythema. Dr. Arias consulted, plan is for surgical intervention in am. Review of Systems Except as stated in HPI: all other systems reviewed are Neg ROS: 14 point review of systems otherwise negative. Past Family Social History Past Medical History PMH: None Past Surgical History PAST SURGICAL HISTORY: Left Ankle I&D and External Fixation, Cervical Fusion Allergies: Coded Allergies: No Known Allergies (Unverified , 04/08/18) Family History PAST FAMILY HISTORY: Reviewed. No h/o DM or CAD Social History PAST SOCIAL HISTORY: Negative for alcohol or drugs. Positive for tobacco. Physical Exam Vital Signs Vital Signs Date Time Temp Pulse Resp B/P (MAP) Pulse Ox O2 Delivery O2 Flow Rate FiO2 04/08/18 19:44 97.5 99 18 139/71 (93) 97 Physical Exam PE: GENERAL: Pleasant young white male in no acute distress. HEENT: PERRLA, EOMI. No scleral icterus or conjunctival pallor. No lid lag or facial droop. CARDIOVASCULAR: Regular rate and rhythm. No obvious murmurs to auscultation. No chest tenderness to palpation. RESPIRATORY: No obvious rhonchi or wheezing. Clear to auscultation. Breath sounds equal bilaterally. GASTROINTESTINAL: Abdomen soft, non-tender, nondistended. BS normal. MUSCULOSKELETAL: Extremities without clubbing, cyanosis, or edema. No obvious deformities. Left foot/ankle with significant edema and erythema, +open, draining ulcers, +bone exposure, +external fixation. NEUROLOGICAL: Awake, alert and oriented x4. No focal neurologic deficits. Moving both upper and lower extremities spontaneously. Laboratory Laboratory Tests Test 04/08/18 21:25 White Blood Count 6.8 Red Blood Count 4.74 Hemoglobin 12.7 Hematocrit 38.7 Mean Corpuscular Volume 81.7 Mean Corpuscular Hemoglobin 26.8 Mean Corpuscular Hemoglobin Concent 32.8 Red Cell Distribution Width 13.8 Platelet Count 234 Mean Platelet Volume 7.3 Neutrophils (%) (Auto) 56.8 Lymphocytes (%) (Auto) 28.5 Monocytes (%) (Auto) 13.1 Eosinophils (%) (Auto) 0.9 Basophils (%) (Auto) 0.7 Neutrophils # (Auto) 3.9 Lymphocytes # (Auto) 2.0 Monocytes # (Auto) 0.9 Eosinophils # (Auto) 0.1 Basophils # (Auto) 0.0 CBC Comment AUTO DIFF Prothrombin Time 10.6 Prothromb Time International Ratio 1.0 Activated Partial Thromboplast Time 27.4 Blood Urea Nitrogen 13 Creatinine 1.11 Random Glucose 86 Calcium Level 9.2 Sodium Level 138 Potassium Level 3.8 Chloride Level 101 Carbon Dioxide Level 25.5 Anion Gap 12 Estimat Glomerular Filtration Rate 73 Result Diagram: 04/08/18212404/08/182124 Caprini VTE Risk Assessment Caprini VTE Risk Assessment: No/Low Risk (score <= 1) VTE Pharm Contraindication: High risk for bleeding VTE [facility] Contraindication: LE injury/wound Caprini Risk Assessment Model Point Value = 1 Point Value = 2 Point Value = 3 Point Value = 5 Age 41-60 Minor surgery BMI > 25 kg/m2 Swollen legs Varicose veins or History of unexplained or recurrent spontaneous Oral contraceptives or hormone replacement Sepsis (< 1 month) Serious lung disease, including pneumonia (< 1 month) Abnormal pulmonary function Acute myocardial infarction Congestive heart failure (< 1 month) History of inflammatory bowel disease Medical patient at bed rest Age 61-74 Arthroscopic surgery Major open surgery (> 45 min) Laparoscopic surgery (> 45 min) Malignancy Confined to bed (> 72 hours) Immobilizing plaster cast Central venous access Age >= 75 History of VTE Family history of VTE Factor V Leiden Prothrombin [id number] Lupus anticoagulant Anticardiolipin antibodies Elevated serum homocysteine Heparin-induced thrombocytopenia Other congenital or acquired thrombophilia Stroke (< 1 month) Elective arthroplasty Hip, pelvis, or leg fracture Acute spinal cord injury (< 1 month) Prophylaxis Regimen Total Risk Factor Score Risk Level Prophylaxis Regimen 0-1 Low Early ambulation 2 Moderate Order ONE of the following: *Sequential Compression Device (SCD) *Heparin 5000 units SQ BID 3-4 Higher Order ONE of the following medications: *Heparin 5000 units SQ TID *Enoxaparin/Lovenox 40 mg SQ daily (WT < 150 kg, CrCl > 30 mL/min) *Enoxaparin/Lovenox 30 mg SQ daily (WT < 150 kg, CrCl > 10-29 mL/min) *Enoxaparin/Lovenox 30 mg SQ BID (WT < 150 kg, CrCl > 30 mL/min) AND/OR *Sequential Compression Device (SCD) 5 or more Highest Order ONE of the following medications: *Heparin 5000 units SQ TID (Preferred with Epidurals) *Enoxaparin/Lovenox 40 mg SQ daily (WT < 150 kg, CrCl > 30 mL/min) *Enoxaparin/Lovenox 30 mg SQ daily (WT < 150 kg, CrCl > 10-29 mL/min) *Enoxaparin/Lovenox 30 mg SQ BID (WT < 150 kg, CrCl > 30 mL/min) AND *Sequential Compression Device (SCD) Assessment and Plan Problem List: (1) Postoperative wound infection ICD Code: T81.4XXA - Infection following a procedure, initial encounter (2) Tobacco abuse ICD Code: Z72.0 - Tobacco use Assessment and Plan A/P: 1. Postop Wound Infection: s/p fall from scaffolding w/ open left ankle fracture, s/p Left Ankle I&D and Ex-Fix Placement 02/21/[address] Arias, now w/ erythema/edema, purulent drainage from ulcers and bone exposure. Ankle X-ray w / external fixation and abnormal widening of ankle joint, images reviewed by me. Dr. Arias consulted, plan is for surgical intervention for wash out in am. Afebrile, no leukocytosis, however on exam there is obvious infection w/ purulent drainage. Start on broad spectrum antibiotics w/ Vanc/Cefepime, check Wound Cultures, consult Wound Management for further evaluation/recommendations , NPO, IVF, analgesics/antiemetics as needed. 2. Tobacco Abuse: Counselled. NicoDerm prn if needed. 3. DVT Prophylaxis: Pharmacologic contraindication due to planned surgical intervention, Mechanical contraindication due to injury/wound and external fixation. 4. Social work for d/c planning as needed. 5. Case discussed w/ ER physician at length, labs/records/imaging reviewed by me. Physician Certification 2 Midnight Certification Type: Admission for Inpatient Services Order for Inpatient Services The services are ordered in accordance with Medicare regulations or non- Medicare payer requirements, as applicable. In the case of services not specified as inpatient-only, they are appropriately provided as inpatient services in accordance with the 2-midnight benchmark. Estimated LOS (days): 2 days is the estimated time the patient will need to remain in the hospital, assuming treatment plan goals are met and no additional complications. Post-Hospital Plan: Not yet determined Jo Ann Macias MD Apr 08, 2018 22:43
[2018-04-08] MEDS ORDERED: SODIUM CHLORIDE 0.9% FLUSH 10 ML FLUSH IV FLUSH PRN (22:45)
[2018-04-08] MEDS ORDERED: LACTULOSE SYRUP 20 GM/30 ML CUP PO PRN (22:45)
[2018-04-08] MEDS ORDERED: ACETAMINOPHEN 325 MG TAB PO PRN (22:45)
[2018-04-08] MEDS ORDERED: MORPHINE SULFATE 2 MG/ML SYRINGE IV PUSH PRN (22:45)
[2018-04-08] MEDS ORDERED: MAGNESIUM HYDROXIDE SUSP 30 ML CUP PO PRN (22:45)
[2018-04-08] MEDS ORDERED: BISACODYL 10 MG SUPP RECTAL PRN (22:45)
[2018-04-08] MEDS ORDERED: ACETAMINOPHEN/HYDROcodone 325 MG/5 MG TAB PO PRN (22:45)
[2018-04-08] MEDS ORDERED: SENNOSIDES 8.6 MG TAB PO PRN (22:45)
[2018-04-08] MEDS ORDERED: Vancomycin Consult Pharmacy 1 EA OTHER SCH (23:00)
[2018-04-09] MEDS ORDERED: VANCOMYCIN INJ 1,700 MG in SODIUM CHLORID 0.9% 500 ML INJ 500 ML IV SCH ×2
[2018-04-09 00:17] VITALS: BP 113/60; PULSE 63; RESP 18; TEMP 97.9; O2SAT 95
[2018-04-09] MEDS: CEFEPIME INJ 1,000 MG in SODIUM CHLORIDE 0.9% INJ 100 ML IV SCH ×3 (01:13→22:12)
[2018-04-09] MEDS: SODIUM CHLOR 0.9% 1000 ML INJ 1,000 ML IV SCH ×3 (01:14→15:30)
[2018-04-09] MEDS: MORPHINE SULFATE 4 MG/ML INJ IV PUSH PRN ×7 (01:24→22:11)
[2018-04-09 04:53] VITALS: BP 110/61; PULSE 60; RESP 18; TEMP 98; O2SAT 94
[2018-04-09] MEDS: SODIUM CHLORIDE 0.9% FLUSH 10 ML FLUSH IV FLUSH SCH ×2 (07:23→21:00)
[2018-04-09] MEDS: DOCUSATE SODIUM 50 MG/SENNA 8.6 MG TAB PO SCH ×2 (07:27→21:00)
[2018-04-09 08:00] VITALS: BP 97/59; PULSE 64; RESP 20; TEMP 98; O2SAT 97
[2018-04-09 08:14] LABS: AUTOMATED NEUTROPHIL # 2.5 TH/MM3 (1.8-7.7); BASOPHIL # 0.1 TH/MM3 (0-0.2); EOSINOPHIL # 0.2 TH/MM3 (0-0.4); EOSINOPHIL % 2.9 % (0.0-4.0); HEMATOCRIT 33.8 % (39.0-51.0); HEMOGLOBIN 11.3 GM/DL (13.0-17.0); LYMPH % 39.1 % (9.0-44.0); LYMPHOCYTE # 2.1 TH/MM3 (1.0-4.8); MEAN CELL VOLUME 81.9 FL (80.0-100.0); MEAN CORPUSCULAR HEMOGLOBIN 27.3 PG (27.0-34.0); MEAN CORPUSCULAR HGB CONC 33.4 % (32.0-36.0); MEAN PLATELET VOLUME 7.8 FL (7.0-11.0); MONO % 12.3 % (0.0-8.0); MONOCYTE # 0.7 TH/MM3 (0-0.9); NEUT % 44.7 % (16.0-70.0); PLATELET COUNT 207 TH/MM3 (150-450); RED BLOOD COUNT 4.13 MIL/MM3 (4.50-5.90); RED CELL DISTRIBUTION WIDTH 13.6 % (11.6-17.2); WHITE BLOOD COUNT 5.5 TH/MM3 (4.0-11.0)
[2018-04-09 08:36] LABS: ALBUMIN 3.2 GM/DL (3.4-5.0); ALT (GPT) 31 U/L (12-78); BICARBONATE 25.5 MEQ/L (21.0-32.0); CHLORIDE 105 MEQ/L (98-107); GLUCOSE,RANDOM 80 MG/DL (74-106); SODIUM (NA) 140 MEQ/L (136-145)
[2018-04-09 08:43] LABS: ALKALINE PHOSPHATASE 70 U/L (45-117); AST (GOT) 32 U/L (15-37); BLOOD UREA NITROGEN 16 MG/DL (7-18); CALCIUM 8.4 MG/DL (8.5-10.1); GLOMERULAR FILTRATION RATE 93 ML/MIN (>89); TOTAL BILIRUBIN ADULT 0.4 MG/DL (0.2-1.0); TOTAL PROTEIN 6.3 GM/DL (6.4-8.2)
[2018-04-09] MEDS ORDERED: SODIUM CHLORID 0.9% 500 ML INJ 500 ML IV ONE (09:45)
[2018-04-09] MEDS ORDERED: ACETAMINOPHEN 1000 MG/100 ML 100 ML IV ONE (09:52)
[2018-04-09] MEDS ORDERED: ceFAZolin INJ 1,000 MG VIAL ONE (10:07)
[2018-04-09] MEDS ORDERED: GENTAMICIN SULFATE 80 MG/2 ML VIAL ONE (10:07)
[2018-04-09] MEDS ORDERED: VANCOMYCIN HCL 1000 MG VIAL ONE ×2 (10:08→10:31)
[2018-04-09] MEDS ORDERED: SODIUM CHLOR 0.9% 250 ML INJ 250 ML ONE (10:08)
[2018-04-09] MEDS ORDERED: TOBRAMYCIN 1200 MG VIAL (for ortho/sterile core) OTHER ONE (10:31)
[2018-04-09] MEDS ORDERED: NALOXONE HCL 0.4 MG/ML AMP IV PUSH PRN (10:45)
[2018-04-09] MEDS ORDERED: ACETAMINOPHEN/HYDROcodone 325 MG/7.5 MG TAB PO PRN (10:45)
[2018-04-09] MEDS ORDERED: Post-op Orders (for Pharmacy) XX ONE (10:45)
[2018-04-09] MEDS ORDERED: LACTATED RINGER'S 1000 ML INJ 1,000 ML IV SCH (10:45)
--- NOTE | 2018-04-09 10:52 | PD.OP ---
cc: Jason Pinon MD Operative Report Date of Surgery: Apr 09, 2018 Preoperative Diagnosis: Comminuted open left distal tibia and fibula fractures with open wound Postoperative Diagnosis: Procedure: Revision of external fixation, irrigation and debridement of open tibia and fibular fractures Anesthesia: General Surgeon: Jason Pinon [employer]id [employer] Man(s): Mookie Pretty PA-C The surgical procedure was assisted by my physician licensed occupational therapy assistant. My P.A. presence was necessary throughout this case for the manipulation and positioning of the surgical extremity. My P.A. was assisting me throughout the duration of this procedure. The skill set of a physician licensed occupational therapy assistant was medically necessary to complete this procedure. During the surgical case the swimming pool service technician was working at the back table and the physician licensed occupational therapy assistant was directly assisting me. Operation and Findings: Mykel is well-known to me from severely comminuted left distal tibia and fibular fractures treated with previous reduction and external fixation. He has a long history of smoking. He has continued to smoke despite multiple discussions regarding the need for smoking cessation. He has developed wounds around the ankle. He was in the emergency room complaining of exposed bone over the lateral ankle. Patient was seen and evaluated in the emergency department and found to have exposed bone over the anterolateral ankle. Informed consent was obtained. I had a detailed discussion with patient regarding his treatment options. At this point his options are limited. Salvaging his foot may be difficult. He may subsequently need a below the knee amputation. If there is significant bone exposed he would likely need a free tissue transfer procedure done. Patient would like to try salvaging his foot at this time. Informed consent was confirmed and operative site was marked. He is brought to operating room. Is given IV sedation and general anesthesia. Timeout procedure was performed. He received IV antibiotics. Procedure began with revision of the external fixation. The lateral bar and clamp to the fifth metatarsal was loosened and removed to allow for better access to the wound. At this point the fifth metatarsal pin was found to be loose. This fifth metatarsal pin was removed. Next attention was turned towards debridement of the wound. Full-thickness skin was excised. A 3 cm x 3 cm area of necrotic skin was removed. There was exposed fibula and tibia. Curettes and rongeurs were used to debride bone. Bone fragments were excised and sent to the micro biology lab for cultures. After thorough debridement of soft tissue and bone wound was thoroughly irrigated with pulsatile lavage. Next attention was turned to wound VAC placement. A VAC dressing was cut to fit the wound. VAC dressing was sealed appropriately. Patient was awakened and transferred to recovery room in stable condition. Jason Pinon MD Apr 09, 2018 10:51
[2018-04-09] MEDS ORDERED: DO NOT ADM ANY ANTICOAGULANT DRUGS PRN (11:06)
[2018-04-09] MEDS ORDERED: MIDAZOLAM HCL 2 MG/2 ML VIAL ONE (11:10)
[2018-04-09] MEDS ORDERED: MORPHINE SULFATE 4 MG/ML INJ ONE (11:11)
[2018-04-09] MEDS ORDERED: PROPOFOL 200 MG/20 ML AMP IV ONE (12:00)
[2018-04-09] MEDS ORDERED: DEXAMETHASONE SOD PHOS 4 MG/ML VIAL IV ONE (12:00)
[2018-04-09] MEDS ORDERED: SODIUM CHLOR 0.9% 250 ML INJ 250 ML IV ONE (12:00)
[2018-04-09] MEDS ORDERED: ONDANSETRON HCL 4 MG/2 ML VIAL IV ONE (12:00)
[2018-04-09] MEDS ORDERED: SODIUM CHLORIDE 0.9% 10 ML VIAL IV ONE (12:00)
[2018-04-09] MEDS ORDERED: LIDOCAINE HCL 1% PF 5 ML SYRINGE OTHER ONE (12:00)
[2018-04-09] MEDS: CALCIUM/VITAMIN D 250 MG/125 U TAB PO SCH ×2 (12:16→18:26)
[2018-04-09 12:28] VITALS: BP 104/58; PULSE 47; RESP 20; TEMP 97.8; O2SAT 93
[2018-04-09] MEDS: KETOROLAC TROMETHAMINE 30 MG/ML (IVP) VIAL IVP SCH ×2 (13:08→21:16)
--- NOTE | 2018-04-09 13:35 | HHI.PR ---
Subjective Remarks Patient c/o left lower extremity pain. sp Revision of external fixation, irrigation and debridement of open tibia and fibular fractures. Denies cp/sob Objective Vitals Vital Signs Date Time Temp Pulse Resp B/P (MAP) Pulse Ox O2 Delivery O2 Flow Rate FiO2 04/09/18 12:28 97.8 47 20 104/58 (73) 93 04/09/18 11:45 97.7 48 16 97/56 (70) 95 Room Air 04/09/18 11:30 50 16 98/56 (70) 95 Room Air 04/09/18 11:15 56 16 99/57 (71) 96 Nasal Cannula 3 04/09/18 11:05 Nasal Cannula 3 04/09/18 11:04 97.6 57 18 100/57 (71) 100 Simple Mask 6 04/09/18 08:00 98.0 64 20 97/59 (72) 97 04/09/18 04:53 98.0 60 18 110/61 (77) 94 04/09/18 00:17 97.9 63 18 113/60 (77) 95 04/08/18 23:52 04/08/18 22:00 78 16 138/81 (100) 95 Room Air 04/08/18 19:44 97.5 99 18 139/71 (93) 97 I/O 04/08/18 04/08/18 04/08/18 04/09/18 04/09/18 04/09/18 06:59 14:59 22:59 06:59 14:59 22:59 Intake Total 100 ml Output Total 400 ml 450 ml Balance -400 ml -350 ml Intake IV Total 100 ml Output Urine Total 400 ml 450 ml Result Diagram: 04/09/18 0600 04/09/18 0600 Imaging Last Impressions Ankle X-Ray 04/08/18 0000 Signed Impressions: CONCLUSION: External fixation of severely comminuted distal tibial and fibular fractures wi th abnormal widening of the ankle joint. Early periosteal new bone formation. N o definite bony destruction identified. Objective Remarks GENERAL: Pleasant young white male in no acute distress. HEENT: PERRLA, EOMI. No scleral icterus or conjunctival pallor. No lid lag or facial droop. CARDIOVASCULAR: Regular rate and rhythm. No obvious murmurs to auscultation. No chest tenderness to palpation. RESPIRATORY: No obvious rhonchi or wheezing. Clear to auscultation. Breath sounds equal bilaterally. GASTROINTESTINAL: Abdomen soft, non-tender, nondistended. BS normal. MUSCULOSKELETAL: Extremities without clubbing, cyanosis, or edema. No obvious deformities. Left foot/ankle with significant edema and erythema, +open, draining ulcers, +bone exposure, +external fixation. NEUROLOGICAL: Awake, alert and oriented x4. No focal neurologic deficits. Moving both upper and lower extremities spontaneously. Procedures Revision of external fixation, irrigation and debridement of open tibia and fibular fractures 04/09/18. A/P Problem List: (1) Postoperative wound infection ICD Code: T81.4XXA - Infection following a procedure, initial encounter (2) Tobacco abuse ICD Code: Z72.0 - Tobacco use Assessment and Plan 1. Postop Wound Infection: s/p fall from scaffolding w/ open left ankle fracture, s/p Left Ankle I&D and Ex-Fix Placement 02/21/[address] Arias, now w/ erythema/edema, purulent drainage from ulcers and bone exposure. Ankle X-ray w / external fixation and abnormal widening of ankle joint, images reviewed by me. Dr. Arias consulted, plan is for surgical intervention for wash out in am. Afebrile, no leukocytosis, however on exam there is obvious infection w/ purulent drainage. Start on broad spectrum antibiotics w/ Vanc/Cefepime, check Wound Cultures, consult Wound Management for further evaluation/recommendations , NPO, IVF, analgesics/antiemetics as needed. 04/09 status post revision of external fixation, irrigation and debridement of open tibia and fibular fractures. Continue IV antibiotics, patient currently on IV vancomycin, IV cefepime. Consult infectious disease. 2. Tobacco Abuse: Counselled. NicoDerm prn if needed. 3. DVT Prophylaxis: Pharmacologic contraindication due to planned surgical intervention, Mechanical contraindication due to injury/wound and external fixation. 4. Social work for d/c planning as needed. d by me. Discharge Planning Continue to monitor the medical floor. Herminio Betancur MD Apr 09, 2018 13:35
[2018-04-09] MEDS ORDERED: VANCOMYCIN INJ 750 MG in SODIUM CHLOR 0.9% 250 ML INJ 250 ML IV ONE (14:00)
[2018-04-09 16:00] VITALS: BP 103/53; PULSE 56; RESP 20; TEMP 97.8; O2SAT 95
[2018-04-09] MEDS: ceFAZolin 2 GM PREMIX 50 ML IV SCH (18:26)
[2018-04-09] MEDS: ONDANSETRON ODT 4 MG TAB PO PRN (18:36)
[2018-04-09 20:40] VITALS: BP 124/66; PULSE 70; RESP 20; TEMP 97.9; O2SAT 96
[2018-04-09] MEDS ORDERED: VANCOMYCIN INJ 1,000 MG in SODIUM CHLOR 0.9% 250 ML INJ 250 ML IV SCH (21:00)
[2018-04-09] MEDS: ACETAMINOPHEN/HYDROcodone 325 MG/10 MG TAB PO PRN (21:14)
[2018-04-09] MEDS: METOCLOPRAMIDE HCL 10 MG/2 ML VIAL IV PUSH PRN (22:11)
[2018-04-09] MEDS: diphenhydrAMINE HCL 25 MG CAP PO PRN (22:11)
[2018-04-09] MEDS ORDERED: TEMAZEPAM 7.5 MG CAP PO ONE (23:00)
[2018-04-10] MEDS: ACETAMINOPHEN/HYDROcodone 325 MG/10 MG TAB PO PRN ×6 (00:04→23:16)
[2018-04-10 00:27] VITALS: BP 123/63; PULSE 74; RESP 20; TEMP 98; O2SAT 96
[2018-04-10] MEDS: ONDANSETRON ODT 4 MG TAB PO PRN (01:09)
[2018-04-10] MEDS: MORPHINE SULFATE 4 MG/ML INJ IV PUSH PRN ×4 (01:09→12:29)
[2018-04-10] MEDS: ceFAZolin 2 GM PREMIX 50 ML IV SCH ×2 (01:09→08:30)
[2018-04-10] MEDS: VANCOMYCIN INJ 1,750 MG in SODIUM CHLORID 0.9% 500 ML INJ 500 ML IV SCH ×2 (02:00→13:14)
[2018-04-10] MEDS: SODIUM CHLOR 0.9% 1000 ML INJ 1,000 ML IV SCH ×2 (04:35→14:30)
[2018-04-10] MEDS: METOCLOPRAMIDE HCL 10 MG/2 ML VIAL IV PUSH PRN ×2 (04:54→09:06)
[2018-04-10 05:12] VITALS: BP 130/73; PULSE 62; RESP 20; TEMP 98.2; O2SAT 97
[2018-04-10] MEDS: KETOROLAC TROMETHAMINE 30 MG/ML (IVP) VIAL IVP SCH ×2 (06:07→13:13)
[2018-04-10 07:00] VITALS: BP 111/58; PULSE 64; RESP 18; TEMP 97.9; O2SAT 97
--- NOTE | 2018-04-10 07:02 | PD.ORT.PN ---
Subjective Subjective Remarks Mykel is awake and alert. He has large area of wound necrosis over the distal tibia and fibula. Status post irrigation and debridement with application of wound VAC dressing on 04/09/2018 Objective Vitals Vital Signs Date Time Temp Pulse Resp B/P (MAP) Pulse Ox O2 Delivery O2 Flow Rate FiO2 04/10/18 05:12 98.2 62 20 130/73 (92) 97 04/10/18 00:27 98.0 74 20 123/63 (83) 96 04/09/18 20:40 97.9 70 20 124/66 (85) 96 04/09/18 16:00 97.8 56 20 103/53 (70) 95 04/09/18 12:28 97.8 47 20 104/58 (73) 93 04/09/18 11:45 97.7 48 16 97/56 (70) 95 Room Air 04/09/18 11:30 50 16 98/56 (70) 95 Room Air 04/09/18 11:15 56 16 99/57 (71) 96 Nasal Cannula 3 04/09/18 11:05 Nasal Cannula 3 04/09/18 11:04 97.6 57 18 100/57 (71) 100 Simple Mask 6 04/09/18 08:00 98.0 64 20 97/59 (72) 97 I/O 04/09/18 04/09/18 04/09/18 04/10/18 04/10/18 04/10/18 07:00 15:00 23:00 07:00 15:00 23:00 Intake Total 1490 ml 826 ml Output Total 400 ml 1070 ml 350 ml 500 ml Balance -400 ml 420 ml 476 ml -500 ml Intake Oral 240 ml IV Total 350 ml 826 ml Other 900 ml Output Urine Total 400 ml 1050 ml 350 ml 500 ml Estimated Blood Loss 20 ml # Bowel Movements 1 1 Result Diagram: 04/09/18 0600 04/09/18 0600 Objective Remarks Patient is awake and alert. Pin sites are clean and dry. VAC dressing is in place over the left ankle. Assessment & Plan Assessment and Plan I had a lengthy discussion with Mykel regarding treatment options. Option 1 would be a below the knee amputation. Option 2 would be to be transferred to [facility] to be evaluated for possible free tissue transfer. He would then need a hindfoot or ankle arthrodesis. I discussed the functional limitations of both options. Currently he is leaning towards a below the knee amputation. I also stressed to him again the need to stop smoking. I explained that any further surgical intervention has a higher failure rate if he keeps smoking. He would like to think about his options. All of his questions were answered. A mid-level provider in my office (nurse practitioner or physician assistant boiler operator) may see this patient on follow-up visits and continue to implement the objectives of this plan including: Starting or adjusting medications, injections , cast application, orthotics, brace application, physical therapy, radiological studies (including x-ray, MRI, CT, ultrasound, bone scan), vascular studies, neurologic studies, specialist consultation, and proceeding with surgical management, as appropriate. Jason Arias MD Apr 10, 2018 07:02
[2018-04-10] MEDS: DOCUSATE SODIUM 50 MG/SENNA 8.6 MG TAB PO SCH ×2 (08:30→20:15)
[2018-04-10] MEDS: CALCIUM/VITAMIN D 250 MG/125 U TAB PO SCH ×3 (08:32→15:18)
[2018-04-10] MEDS: SODIUM CHLORIDE 0.9% FLUSH 10 ML FLUSH IV FLUSH SCH ×2 (08:32→20:16)
[2018-04-10] MEDS: diphenhydrAMINE HCL 25 MG CAP PO PRN (09:06)
[2018-04-10] MEDS: CEFEPIME INJ 1,000 MG in SODIUM CHLORIDE 0.9% INJ 100 ML IV SCH ×2 (09:30→23:16)
--- NOTE | 2018-04-10 10:56 | PD.WCN.NOT ---
Wound Consult Additional Information: Patient not seen, Doctor Arias Orthopedic surgeon has seen patient for L foot ulcers. Patient was taken to surgery for debridement of L ankle, wound VAC was placed on 04/09 by Surgeon. Doctor Arias wrote orders to not change wound VAC dressing.Spoke with RN Wesly higgins. Please defer to Doctor Arias's orders for wound management of L foot. Wound care inpatient is signing off. Arabella Tavera [facility] Apr 10, 2018 10:56
[2018-04-10 11:08] LABS: HEMOGLOBIN 10.7 GM/DL (13.0-17.0); MEAN CELL VOLUME 80.7 FL (80.0-100.0); MEAN CORPUSCULAR HGB CONC 33.5 % (32.0-36.0); PLATELET COUNT 176 TH/MM3 (150-450); RED BLOOD COUNT 3.97 MIL/MM3 (4.50-5.90); RED CELL DISTRIBUTION WIDTH 13.7 % (11.6-17.2); WHITE BLOOD COUNT 5.7 TH/MM3 (4.0-11.0)
[2018-04-10 11:41] LABS: % SATURATION IRON PROFILE 19.7 % (20-50); IRON (FE) 52 MCG/DL (65-175); TOTAL IRON BINDING CAPACITY 265 MCG/DL (250-450)
[2018-04-10 11:44] LABS: FERRITIN 65 NG/ML (26-388)
[2018-04-10 11:48] VITALS: BP 116/58; PULSE 69; RESP 20; TEMP 98.1; O2SAT 95
[2018-04-10] MEDS ORDERED: PHARMACY ORDERED LAB ONE (13:45)
--- NOTE | 2018-04-10 13:54 | HHI.PR ---
Subjective Remarks The patient complains that he fell head his back and his left wrist. However the patient was seen jumping into the bed when I entered the room. Patient denies fevers or chills, denies hitting his head Objective Vitals Vital Signs Date Time Temp Pulse Resp B/P (MAP) Pulse Ox O2 Delivery O2 Flow Rate FiO2 04/10/18 12:40 16 04/10/18 12:40 16 04/10/18 11:48 98.1 69 20 116/58 (77) 95 04/10/18 08:29 16 04/10/18 07:00 97.9 64 18 111/58 (75) 97 04/10/18 05:12 98.2 62 20 130/73 (92) 97 04/10/18 00:27 98.0 74 20 123/63 (83) 96 04/09/18 20:40 97.9 70 20 124/66 (85) 96 04/09/18 16:00 97.8 56 20 103/53 (70) 95 I/O 04/09/18 04/09/18 04/09/18 04/10/18 04/10/18 04/10/18 07:00 15:00 23:00 07:00 15:00 23:00 Intake Total 1490 ml 826 ml Output Total 400 ml 1070 ml 350 ml 500 ml Balance -400 ml 420 ml 476 ml -500 ml Intake Oral 240 ml IV Total 350 ml 826 ml Other 900 ml Output Urine Total 400 ml 1050 ml 350 ml 500 ml Estimated Blood Loss 20 ml # Bowel Movements 1 1 Result Diagram: 04/10/18 0836 04/09/18 0600 Imaging Last Impressions Ankle X-Ray 04/08/18 0000 Signed Impressions: CONCLUSION: External fixation of severely comminuted distal tibial and fibular fractures wi th abnormal widening of the ankle joint. Early periosteal new bone formation. N o definite bony destruction identified. Objective Remarks GENERAL: Pleasant young white male in no acute distress. HEENT: PERRLA, EOMI. No scleral icterus or conjunctival pallor. No lid lag or facial droop. CARDIOVASCULAR: Regular rate and rhythm. No obvious murmurs to auscultation. No chest tenderness to palpation. RESPIRATORY: No obvious rhonchi or wheezing. Clear to auscultation. Breath sounds equal bilaterally. GASTROINTESTINAL: Abdomen soft, non-tender, nondistended. BS normal. MUSCULOSKELETAL: Extremities without clubbing, cyanosis, or edema. No obvious deformities. Pin sites are clean and dry. VAC dressing is in place over the left ankle. NEUROLOGICAL: Awake, alert and oriented x4. No focal neurologic deficits. Moving both upper and lower extremities spontaneously. Procedures Revision of external fixation, irrigation and debridement of open tibia and fibular fractures 04/09/18. A/P Problem List: (1) Postoperative wound infection ICD Code: T81.4XXA - Infection following a procedure, initial encounter (2) Tobacco abuse ICD Code: Z72.0 - Tobacco use Assessment and Plan 1. Postop Wound Infection: s/p fall from scaffolding w/ open left ankle fracture, s/p Left Ankle I&D and Ex-Fix Placement 02/21/[address] Arias, now w/ erythema/edema, purulent drainage from ulcers and bone exposure. Ankle X-ray w / external fixation and abnormal widening of ankle joint, images reviewed by me. Dr. Arias consulted, plan is for surgical intervention for wash out in am. Afebrile, no leukocytosis, however on exam there is obvious infection w/ purulent drainage. Start on broad spectrum antibiotics w/ Vanc/Cefepime, check Wound Cultures, consult Wound Management for further evaluation/recommendations , NPO, IVF, analgesics/antiemetics as needed. 04/09 status post revision of external fixation, irrigation and debridement of open tibia and fibular fractures. Continue IV antibiotics, patient currently on IV vancomycin, IV cefepime. Consult infectious disease. 04/10 orthopedic surgery is recommending transfer to [facility] for possible tissue transfer versus below the knee amputation. As per orthopedic surgery recommendations the patient told him he was leaning towards amputation however he told me that he would rather lean towards being transferred for evaluation for tissue transfer. ID consultation pending. Continue antibiotics as per ID recommendations. I will change all opiate medications to oral formulations. 2. Tobacco Abuse: Counselled for smoking cessation. NicoDerm prn if needed. 3. DVT Prophylaxis: Start on Lovenox subcutaneously. Mechanical contraindication due to injury/wound and external fixation. 4. Social work for d/c planning as needed. Note: The patient was noted having a suspicious behavior. When I entered the room the patient threw himself into the bed facing downwards and place his hand under the left pillow. He alleged falling down in the bathroom and hitting his lower back and left wrist. During my exam there is no tenderness of the lower back and there is no deformity observed of the left wrist. I will obtain an x- ray of the left wrist and lumbar spine. Discharge Planning Continue to monitor the medical floor. Herminio Betancur MD Apr 10, 2018 13:54
[2018-04-10] MEDS: HEPARIN SODIUM - SQ 10,000 UNITS/ML VIAL SQ SCH ×2 (14:45→20:16)
[2018-04-10 16:08] VITALS: BP 146/81; PULSE 58; RESP 18; TEMP 98.2; O2SAT 97
[2018-04-10] MEDS: MORPHINE SULFATE 15 MG TAB PO PRN ×2 (16:33→21:04)
[2018-04-10 20:00] VITALS: BP 132/77; PULSE 51; RESP 18; TEMP 97.9; O2SAT 98
--- NOTE | 2018-04-10 23:38 | PD.ID.CON ---
History of Present Illness Service ID Consult Requested By Dr Pinon Reason for Consult L foot osteo Primary Care Physician No Primary Care Physician Diagnoses: History of Present Illness This is a 46-year-old male sp fall from 18 feet on 02/21 He sustained scaffolding w/ open left ankle fracture, s/p Left Ankle I&D and Ex- Fix Placement by Dr. Pinon on 02/21/18. 2 Weeks ago he noted "bone sticking out", pain o and purulent drainage. No fever, chillsPresented Afebrile with WBC normal. Ankle X-ray with external fixation of severely comminuted distal tibial and fibular fractures with abnormal widening of the ankle joint, early periosteal new bone formation, no bony destruction. On Apr 09, 2018 underwent Revision of external fixation, irrigation and debridement of open tibia and fibular fractures by Dr. Pinon Cultures growin Staph epin and GNB Review of Systems Except as stated in HPI: all other systems reviewed are Neg Past Family Social History Allergies: Coded Allergies: No Known Allergies (Unverified , 04/08/18) Past Medical History none Past Surgical History ORIF 6 weeks ago Active Ordered Medications Medications where reviewed in EMR Antibiotics Include: vanco cefepime Family History reviewed/non contributory Social History tobacco + 1ppd denies illit drugs no ETOH Physical Exam Vital Signs Vital Signs Date Time Temp Pulse Resp B/P (MAP) Pulse Ox O2 Delivery O2 Flow Rate FiO2 04/10/18 20:00 97.9 51 18 132/77 (95) 98 04/10/18 17:19 16 04/10/18 16:45 16 04/10/18 16:08 98.2 58 18 146/81 (102) 97 04/10/18 14:27 16 04/10/18 12:40 16 04/10/18 12:40 16 04/10/18 11:48 98.1 69 20 116/58 (77) 95 04/10/18 07:00 97.9 64 18 111/58 (75) 97 04/10/18 05:12 98.2 62 20 130/73 (92) 97 04/10/18 00:27 98.0 74 20 123/63 (83) 96 Physical Exam CONSTITUTIONAL/GENERAL: This is an adequately nourished patient, in no apparent distress. TUBES/LINES/DRAINS: SKIN: No jaundice, rashes, or lesions. Ecchymoses on upper extremities. No wounds seen anteriorly. Skin temperature appropriate. Not diaphoretic. HEAD: Atraumatic. Normocephalic. EYES: Pupils equal and round and reactive. Extraocular motions intact. No scleral icterus. No injection or drainage. Fundi not examined. ENT: Hearing grossly normal. Nose without bleeding or purulent drainage. Throat without visible erythema, exudates, masses, or lesions. CARDIOVASCULAR: Regular rate and rhythm without murmurs, gallops, or rubs. No JVD. Peripheral pulses symmetric. RESPIRATORY/CHEST: Symmetric, unlabored respirations. Clear to auscultation. Breath sounds equal bilaterally. No wheezes, rales, or rhonchi. GASTROINTESTINAL: Abdomen soft, non-tender, nondistended. No hepato-splenomegaly , or palpable masses. No guarding. Bowel sounds present. GENITOURINARY: Without palpable bladder distension. Bryant catheter in place. MUSCULOSKELETAL: Extremities without clubbing, cyanosis, or edema. No joint tenderness or effusion noted. No calf tenderness. No mottling or clubbing. STATUS localis: dressing , VAC and ext fix in place HInd foot very edemaotus, but perfused Drainage odorless LYMPHATICS: No palpable cervical or supraclavicular adenopathy. + lymph nodule L groin NEUROLOGICAL: Awake and alert. Motor and sensory grossly within normal limits. Follows commands. Cognitively sharp. Moves all extremities. PSYCHIATRIC: No obvious anxiety/depression. no apparent hallucinations or other psychotic thought process. Laboratory Laboratory Tests Test 04/10/18 08:36 04/10/18 12:39 White Blood Count 5.7 Red Blood Count 3.97 Hemoglobin 10.7 Hematocrit 32.0 Mean Corpuscular Volume 80.7 Mean Corpuscular Hemoglobin 27.0 Mean Corpuscular Hemoglobin Concent 33.5 Red Cell Distribution Width 13.7 Platelet Count 176 Mean Platelet Volume 8.0 Iron Level 52 Total Iron Binding Capacity 265 Percent Iron Saturation 19.7 Ferritin 65 Vancomycin Level Trough 18.6 Date/Time Source Procedure Growth Status 04/09/18 10:38 Wound Leg Fungal Smear - Final NO FUNGAL ELEMENTS SEEN. Resulted 04/09/18 10:38 Wound Leg Fungal Culture Pending Resulted Result Diagram: 04/10/18 0836 04/09/18 0600 Imaging Last Impressions Wrist X-Ray 04/11/18 0000 Signed Impressions: CONCLUSION: Negative examination Lumbar Spine X-Ray 04/11/18 0000 Signed Impressions: CONCLUSION: Negative examination. Ankle X-Ray 04/08/18 0000 Signed Impressions: CONCLUSION: External fixation of severely comminuted distal tibial and fibular fractures wi th abnormal widening of the ankle joint. Early periosteal new bone formation. N o definite bony destruction identified. 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
[2018-04-11] VITALS: BP 131/69; PULSE 60; RESP 18; TEMP 97.5; O2SAT 98
[2018-04-11] MEDS ORDERED: LORazepam 0.5 MG TAB PO ONE ×2 (00:30→10:30)
[2018-04-11] MEDS: SODIUM CHLOR 0.9% 1000 ML INJ 1,000 ML IV SCH ×3 (01:09→20:35)
[2018-04-11] MEDS: MORPHINE SULFATE 15 MG TAB PO PRN ×6 (01:10→22:03)
[2018-04-11] MEDS: VANCOMYCIN INJ 1,750 MG in SODIUM CHLORID 0.9% 500 ML INJ 500 ML IV SCH ×2 (01:16→12:32)
[2018-04-11 04:00] VITALS: BP 132/58; PULSE 57; RESP 18; TEMP 97.9; O2SAT 98
[2018-04-11] MEDS: METOCLOPRAMIDE HCL 10 MG/2 ML VIAL IV PUSH PRN (04:09)
[2018-04-11] MEDS: ACETAMINOPHEN/HYDROcodone 325 MG/10 MG TAB PO PRN ×5 (04:13→20:00)
[2018-04-11] MEDS: HEPARIN SODIUM - SQ 10,000 UNITS/ML VIAL SQ SCH ×3 (05:21→22:00)
--- NOTE | 2018-04-11 06:22 | PD.ORT.PN ---
Subjective Subjective Remarks Mykel is awake and alert. He has large area of wound necrosis over the distal tibia and fibula. Both the tibia and fibula fractures are exposed through open wound. Status post irrigation and debridement with application of wound VAC dressing on 04/09/2018 Objective Vitals Vital Signs Date Time Temp Pulse Resp B/P (MAP) Pulse Ox O2 Delivery O2 Flow Rate FiO2 04/11/18 05:19 18 04/11/18 04:00 97.9 57 18 132/58 (82) 98 04/11/18 02:12 18 04/11/18 00:00 97.5 60 18 131/69 (89) 98 04/10/18 20:00 97.9 51 18 132/77 (95) 98 04/10/18 16:45 16 04/10/18 16:08 98.2 58 18 146/81 (102) 97 04/10/18 14:27 16 04/10/18 12:40 16 04/10/18 11:48 98.1 69 20 116/58 (77) 95 04/10/18 07:00 97.9 64 18 111/58 (75) 97 I/O 04/10/18 04/10/18 04/10/18 04/11/18 04/11/18 04/11/18 07:00 15:00 23:00 07:00 15:00 23:00 Output Total 500 ml 1111 ml Balance -500 ml -1111 ml Output Urine Total 500 ml 1111 ml # Voids 2 3 Result Diagram: 04/10/18 0836 04/09/18 0600 Objective Remarks Patient is awake and alert. Pin sites are clean and dry. VAC dressing is in place over the left ankle. Good capillary refill in toes Assessment & Plan Assessment and Plan I had a lengthy discussion with Mykel regarding treatment options again this morning. Option 1 would be a below the knee amputation the risk and benefits of the surgery were explained in depth to patient. He understands that it would be 3 months prior to being fitted with a prosthesis.. Option 2 would be to be transferred to [facility] to be evaluated for possible free tissue transfer. He would then need a hindfoot or ankle arthrodesis. I discussed the functional limitations of both options. Currently he is wishes to proceed with a below the knee amputation. I will consult Dr. Ronald Stephen for a second opinion regarding amputation. I will plan on proceeding with surgery today. I also stressed to him again the need to stop smoking. I explained that any further surgical intervention has a higher failure rate if he keeps smoking. All of his questions were answered. Jason Arias MD Apr 11, 2018 06:22
[2018-04-11] MEDS: CALCIUM/VITAMIN D 250 MG/125 U TAB PO SCH ×3 (07:50→17:40)
[2018-04-11] MEDS: CEFEPIME INJ 1,000 MG in SODIUM CHLORIDE 0.9% INJ 100 ML IV SCH (07:54)
[2018-04-11] MEDS: SODIUM CHLORIDE 0.9% FLUSH 10 ML FLUSH IV FLUSH SCH (07:58)
[2018-04-11] MEDS: DOCUSATE SODIUM 50 MG/SENNA 8.6 MG TAB PO SCH ×2 (07:58→21:00)
[2018-04-11 08:00] VITALS: BP 134/82; PULSE 56; RESP 18; TEMP 97.3; O2SAT 97
--- NOTE | 2018-04-11 09:49 | PD.CONS ---
HPI Service Orthopedic Surgeons Consult Requested By Jason Arias Reason for Consult Second opinion regarding possible treatment of left leg with amputation Primary Care Physician No Primary Care Physician Admission Diagnosis Post op complication Diagnoses: (1) Postoperative wound infection Diagnosis: Principal (2) Tobacco abuse Chief Complaint: Nonhealing wound left leg with complex fracture History of Present Illness This patient is a 38-year-old white male who approximately 5 weeks ago was at a job site. He was on an elevated platform approximately 14-18 feet up. He was then on a 4 foot ladder on top that platform leaning against a structure. As she was on top of the secondary platform, the primary structure fell he states he fell approximately 18 feet. He sustained an open injury involving a complex pilon fracture of the left tibia involving a comminuted fibula fracture. He is was treated with external fixation and wound care. He has been breaking down his wound anteriorly leaving exposed bony surfaces. He has had IV antibiotics and wound care with multiple debridements by Dr. Arias. The question at this point is whether to proceed forward with amputation of management complex wound or to consider free flap with delayed reconstruction and palpable ankle effusion. I have been asked to see the patient for second opinion. Past Family Social History Past Medical History PMH: None Past Surgical History PAST SURGICAL HISTORY: Left Ankle I&D and External Fixation, Cervical Fusion Allergies: Coded Allergies: No Known Allergies (Unverified , 04/08/18) Active Ordered Medications Current Medications Medications (Trade) Dose Ordered Sig/Carlton Route Start Time Stop Time Status Last Admin Sodium Chloride 1,000 ml @ 100 mls/hr Q10H IV 04/08/18 22:35 04/11/18 01:09 (NS Flush) 2 ml UNSCH PRN IV FLUSH 04/08/18 22:45 (NS Flush) 2 ml BID IV FLUSH 04/09/18 09:00 04/10/18 20:16 (Reglan Inj) 5 mg Q6H PRN IV PUSH 04/08/18 22:45 04/11/18 04:09 (Tylenol) 650 mg Q6H PRN PO 04/08/18 22:45 (Korin-Colace) 1 tab BID PO 04/09/18 09:00 (Milk Of Magnesia Liq) 30 ml Q12H PRN PO 04/08/18 22:45 (Senokot) 17.2 mg Q12H PRN PO 04/08/18 22:45 (Dulcolax Supp) 10 mg DAILY PRN RECTAL 04/08/18 22:45 (Lactulose Liq) 30 ml DAILY PRN PO 04/08/18 22:45 Pharmacy Profile Note 0 ml @ 0 mls/hr UNSCH OTHER 04/08/18 23:00 Cefepime HCl 1000 mg/Sodium Chloride 100 ml @ 200 mls/hr Q12H IV 04/08/18 23:00 04/11/18 07:54 Vancomycin HCl 1750 mg/Sodium Chloride 517.5 ml @ 250 mls/hr Q12H IV 04/10/18 02:00 04/11/18 01:16 ([place] 7.5-325 Mg) 1 tab Q4H PRN PO 04/09/18 10:45 04/10/18 15:48 ([place] 10-325 Mg) 1 tab Q3H PRN PO 04/09/18 10:45 04/11/18 07:51 (Zofran Odt) 4 mg Q4H PRN PO 04/09/18 10:45 04/10/18 01:09 (Oscal-D 250-125) 250 mg TID PO 04/09/18 13:00 04/11/18 07:50 (Benadryl) 25 mg Q6H PRN PO 04/09/18 10:45 04/10/18 09:06 (Narcan Inj) 0.4 mg UNSCH PRN IV PUSH 04/09/18 10:45 (Msir) 15 mg Q4H PRN PO 04/10/18 14:00 04/11/18 09:22 (Heparin Inj) 5,000 units Q8HR SQ 04/10/18 14:45 Reported Meds & Active Scripts Active Endocet (Oxycodone-Acetaminophen) 10-325 mg Tab 1 Tab PO Q4H PRN Wheelchair Elevated Leg (Device) 1 Mis Mis Ea .XX DIRECTED Walker with Front Wheels (Device) 1 Mis Mis Ea .XX DIRECTED Gnp Senna Plus 8.6-50 mg (Sennosides-Docusate Sodium) 8.6 Mg-50 Mg Tab 1 Tab PO BID 5 Days Family History PAST FAMILY HISTORY: Reviewed. No h/o DM or CAD Social History PAST SOCIAL HISTORY: Negative for alcohol or drugs. Positive for tobacco. Physical Exam Vital Signs Vital Signs Date Time Temp Pulse Resp B/P (MAP) Pulse Ox O2 Delivery O2 Flow Rate FiO2 04/11/18 06:42 18 04/11/18 05:19 18 04/11/18 04:00 97.9 57 18 132/58 (82) 98 04/11/18 00:00 97.5 60 18 131/69 (89) 98 04/10/18 20:00 97.9 51 18 132/77 (95) 98 04/10/18 16:45 16 04/10/18 16:08 98.2 58 18 146/81 (102) 97 04/10/18 14:27 16 04/10/18 12:40 16 04/10/18 11:48 98.1 69 20 116/58 (77) 95 Physical Exam He is in an external fixator. The patient alert cooperative and conversant. He has insight and intuition into his condition. Left leg is in an external fixator. Moderate swelling and mild redness. Sensation plantar aspect foot is nearly normal. He is able to wiggle his toes with almost no dorsiflexion. Sensation is altered dorsally. The wound has been explained to me as being an open area anteriorly extending from midportion of the tibia over to the fibula which is growing and completely necrotic. This involves the extensor tendons of the distal tibia and distal fibula. Laboratory Laboratory Tests Test 04/10/18 12:39 Vancomycin Level Trough 18.6 Date/Time Source Procedure Growth Status 04/09/18 10:38 Wound Leg Fungal Smear - Final NO FUNGAL ELEMENTS SEEN. Resulted 04/09/18 10:38 Wound Leg Fungal Culture Pending Resulted Result Diagram: 04/10/18 0836 04/09/18 0600 Assessment & Plan Assessment and Plan Open distal comminuted tibial P line fracture with open distal fibula fracture. Status post debridement and external fixation left distal tibia and fibula. Nonhealing progressive wound anterior tibia and anterior fibula. PLAN: There are 2 choices. One would be a free flap coverage with delayed fusion and lengthy external fixation for the treatment of this condition. Because of the comminution of the tibia, likely this would lead to resection of bone and significant shortening with a tibial talar fusion extending to the metadiaphysis of the tibia. This would shorten the leg by about 2-2-1/2 inches. The chance of success with this treatment is questionable. Some complicating factors include chronicity of the wound, deep infection, use of tobacco products. The second option would be to consider a below-knee amputation with fairly rapid wound healing and ambulation with a prosthesis. After discussing risks and benefits of both, the patient is very heavily leaning toward amputation to be able to move on and try to get to an ambulatory status. I feel that is reasonable and probably the most appropriate treatment option at this point in his care. An amputation for the treatment of this patient's leg condition is a reasonable option of which I would not disagree. I saw this patient for surgical opinion only. Follow-up care will be through Dr. Juana Stephen,Ronald Nam MD Apr 11, 2018 09:49
[2018-04-11 12:00] VITALS: BP 140/98; PULSE 62; RESP 20; TEMP 97.5; O2SAT 97
--- NOTE | 2018-04-11 13:28 | PD.ORT.PN ---
Subjective Subjective Remarks s/p I&D with appliction of wound vac to left ankle. Objective Vitals Vital Signs Date Time Temp Pulse Resp B/P (MAP) Pulse Ox O2 Delivery O2 Flow Rate FiO2 04/11/18 08:00 97.3 56 18 134/82 (99) 97 04/11/18 06:42 18 04/11/18 05:19 18 04/11/18 04:00 97.9 57 18 132/58 (82) 98 04/11/18 00:00 97.5 60 18 131/69 (89) 98 04/10/18 20:00 97.9 51 18 132/77 (95) 98 04/10/18 16:45 16 04/10/18 16:08 98.2 58 18 146/81 (102) 97 04/10/18 14:27 16 I/O 04/10/18 04/10/18 04/10/18 04/11/18 04/11/18 04/11/18 07:00 15:00 23:00 07:00 15:00 23:00 Output Total 500 ml 1111 ml Balance -500 ml -1111 ml Output Urine Total 500 ml 1111 ml # Voids 2 3 Result Diagram: 04/10/18 0836 04/09/18 0600 Objective Remarks Patient is awake and alert. Pin sites are clean and dry. VAC dressing is in place over the left ankle. Good capillary refill in toes Assessment & Plan Assessment and Plan Open distal comminuted tibial P line fracture with open distal fibula fracture. Status post debridement and external fixation left distal tibia and fibula. Nonhealing progressive wound anterior tibia and anterior fibula. PLAN: patient has decided he would like to wait approx 2 weeks before proceeding with amputation of his leg due to social situations. he is cleared from ortho standpoint ot be discharged home. he needs to do daily wet to dry dressings of his left ankle. He will beed to be tought and given supplies on how to do this. He will follow up in office in 1-2 weeks and be scheduled for below knee amputation. Mookie Pretty/First Obey PIERCE Apr 11, 2018 13:28
--- NOTE | 2018-04-11 13:29 | HHI.FF ---
Face to Face Verification Diagnosis: (1) Post-operative complication (2) Postoperative wound infection Nursing Nursing: Teach and assist BID pin care, Dressing changes (daily wet to dry dressings of left ankle) I have seen patient Mykel Ortega on 04/11/18. My clinical findings support the need for the requested home health care services because: Ltd mobility - disease progression I certify that my clinical findings support that this patient is homebound because: Post-op weakness Mookie Pretty/First Obey PIERCE Apr 11, 2018 13:29
[2018-04-11 16:00] VITALS: BP 136/84; PULSE 66; RESP 20; TEMP 98; O2SAT 97
--- NOTE | 2018-04-11 17:32 | RADRPT ---
EXAM DATE: 04/11/2018 4:50 PM EDT AGE/SEX: 38 years / Male INDICATIONS: Lower back pain. Fall. CLINICAL DATA: This is the patient's initial encounter. Patient reports that signs and symptoms have been present for 4 - 6 days and indicates a pain score of 3/10. MEDICAL/SURGICAL HISTORY: None. . Left ankle. COMPARISON: No prior exams available for comparison. FINDINGS: The vertebral bodies are in normal alignment without evidence of compression deformity Bone density is normal for age. Soft tissues are grossly intact. CONCLUSION: Negative examination. Electronically signed by: Jose Martinez MD 04/11/2018 5:31 PM EDT
--- NOTE | 2018-04-11 17:32 | RADRPT ---
EXAM DATE: 04/11/2018 4:49 PM EDT AGE/SEX: 38 years / Male INDICATIONS: Left wrist pain. CLINICAL DATA: This is the patient's initial encounter. Patient reports that signs and symptoms have been present for 4 - 6 days and indicates a pain score of 1/10. MEDICAL/SURGICAL HISTORY: None. . Left ankle. COMPARISON: No prior exams available for comparison. FINDINGS: Bony structures are intact and in normal alignment. Joints are intact without dislocation or signifi cant arthropathy. Osseous density is normal. Soft tissues are unremarkable. No radiopaque foreign bodies seen. CONCLUSION: Negative examination Electronically signed by: Jose aMrtinez MD 04/11/2018 5:31 PM EDT
--- NOTE | 2018-04-11 17:48 | HHI.PR ---
Subjective Remarks The patient went to [facility] in a.m. however refused to have the surgery done. The patient states pain is controlled. The patient denies fevers or chills. Complains of some back pain. Objective Vitals Vital Signs Date Time Temp Pulse Resp B/P (MAP) Pulse Ox O2 Delivery O2 Flow Rate FiO2 04/11/18 12:00 97.5 62 20 140/98 (112) 97 04/11/18 08:00 97.3 56 18 134/82 (99) 97 04/11/18 06:42 18 04/11/18 05:19 18 04/11/18 04:00 97.9 57 18 132/58 (82) 98 04/11/18 00:00 97.5 60 18 131/69 (89) 98 04/10/18 20:00 97.9 51 18 132/77 (95) 98 I/O 04/10/18 04/10/18 04/10/18 04/11/18 04/11/18 04/11/18 07:00 15:00 23:00 07:00 15:00 23:00 Output Total 500 ml 1111 ml Balance -500 ml -1111 ml Output Urine Total 500 ml 1111 ml # Voids 2 3 Result Diagram: 04/10/18 0836 04/09/18 0600 Objective Remarks GENERAL: Pleasant young white male in no acute distress. HEENT: PERRLA, EOMI. No scleral icterus or conjunctival pallor. No lid lag or facial droop. CARDIOVASCULAR: Regular rate and rhythm. No obvious murmurs to auscultation. No chest tenderness to palpation. RESPIRATORY: No obvious rhonchi or wheezing. Clear to auscultation. Breath sounds equal bilaterally. GASTROINTESTINAL: Abdomen soft, non-tender, nondistended. BS normal. MUSCULOSKELETAL: Extremities without clubbing, cyanosis, or edema. No obvious deformities. Pin sites are clean and dry. VAC dressing is in place over the left ankle. NEUROLOGICAL: Awake, alert and oriented x4. No focal neurologic deficits. Moving both upper and lower extremities spontaneously. Procedures Revision of external fixation, irrigation and debridement of open tibia and fibular fractures 04/09/18. A/P Problem List: (1) Postoperative wound infection ICD Code: T81.4XXA - Infection following a procedure, initial encounter (2) Tobacco abuse ICD Code: Z72.0 - Tobacco use Assessment and Plan 1. Postop Wound Infection: s/p fall from scaffolding w/ open left ankle fracture, s/p Left Ankle I&D and Ex-Fix Placement 02/21/[address] Arias, now w/ erythema/edema, purulent drainage from ulcers and bone exposure. Ankle X-ray w / external fixation and abnormal widening of ankle joint, images reviewed by me. Dr. Arias consulted, plan is for surgical intervention for wash out in am. Afebrile, no leukocytosis, however on exam there is obvious infection w/ purulent drainage. Start on broad spectrum antibiotics w/ Vanc/Cefepime, check Wound Cultures, consult Wound Management for further evaluation/recommendations , NPO, IVF, analgesics/antiemetics as needed. 04/09 status post revision of external fixation, irrigation and debridement of open tibia and fibular fractures. Continue IV antibiotics, patient currently on IV vancomycin, IV cefepime. Consult infectious disease. 04/10 orthopedic surgery is recommending transfer to [facility] for possible tissue transfer versus below the knee amputation. As per orthopedic surgery recommendations the patient told him he was leaning towards amputation however he told me that he would rather lean towards being transferred for evaluation for tissue transfer. ID consultation pending. Continue antibiotics as per ID recommendations. I will change all opiate medications to oral formulations. 04/11 patient went to OR for amputation however the patient refused to have it now. The patient states he will have it once his is with him. 2. Tobacco Abuse: Counselled for smoking cessation. NicoDerm prn if needed. 3. DVT Prophylaxis: Start on Lovenox subcutaneously. Mechanical contraindication due to injury/wound and external fixation. 4. Social work for d/c planning as needed. 04/10 Note: The patient was noted having a suspicious behavior. When I entered the room the patient threw himself into the bed facing downwards and place his hand under the left pillow. He alleged falling down in the bathroom and hitting his lower back and left wrist. During my exam there is no tenderness of the lower back and there is no deformity observed of the left wrist. I will obtain an x-ray of the left wrist and lumbar spine. X-ray of the left wrist and lumbar spine were not done since patient had been out most of the day for a possible amputation. Awaiting results. Discharge Planning Discharge in a.m. pending wrist x-ray and lumbar spine x-ray. Herminio Betancur MD Apr 11, 2018 17:48
[2018-04-11 20:00] VITALS: BP 129/64; PULSE 78; RESP 22; TEMP 97.4; O2SAT 95
[2018-04-11] MEDS ORDERED: ALPRAZolam 0.25 MG TAB PO ONE (22:45)
[2018-04-12] MEDS: ACETAMINOPHEN/HYDROcodone 325 MG/10 MG TAB PO PRN ×4 (00:12→14:48)
[2018-04-12] MEDS: VANCOMYCIN INJ 1,750 MG in SODIUM CHLORID 0.9% 500 ML INJ 500 ML IV SCH ×2 (01:28→12:05)
[2018-04-12] MEDS: SODIUM CHLORIDE 0.9% FLUSH 10 ML FLUSH IV FLUSH SCH ×2 (01:30→09:00)
[2018-04-12] MEDS: MORPHINE SULFATE 15 MG TAB PO PRN ×4 (02:52→18:13)
[2018-04-12 04:00] VITALS: BP 138/75; PULSE 50; RESP 22; TEMP 97.9
[2018-04-12] MEDS: CEFEPIME INJ 2,000 MG in SODIUM CHLORIDE 0.9% INJ 100 ML IV SCH ×2 (04:20→09:18)
[2018-04-12] MEDS: SODIUM CHLOR 0.9% 1000 ML INJ 1,000 ML IV SCH ×2 (06:35→10:37)
[2018-04-12] MEDS: HEPARIN SODIUM - SQ 10,000 UNITS/ML VIAL SQ SCH ×2 (06:38→13:37)
[2018-04-12] MEDS ORDERED: HYDR-3580 PO (07:44)
[2018-04-12] MEDS ORDERED: CALC250 PO (07:44)
[2018-04-12 08:00] VITALS: BP 122/76; PULSE 48; RESP 20; TEMP 97.5; O2SAT 95
[2018-04-12] MEDS: DOCUSATE SODIUM 50 MG/SENNA 8.6 MG TAB PO SCH (09:00)
[2018-04-12] MEDS: CALCIUM/VITAMIN D 250 MG/125 U TAB PO SCH ×3 (09:04→18:26)
[2018-04-12] MEDS ORDERED: LEVA750T9 PO (10:43)
[2018-04-12] MEDS ORDERED: LACTTAB8 PO (10:44)
--- NOTE | 2018-04-12 10:53 | HHI.DS ---
Discharge Summary Admission Date Apr 08, 2018 at 22:41 Discharge Date: Apr 12, 2018 Admitting Diagnosis Post op complication (1) Postoperative wound infection ICD Code: T81.4XXA - Infection following a procedure, initial encounter Diagnosis: Principal (2) Tobacco abuse ICD Code: Z72.0 - Tobacco use Diagnosis: Principal (3) Post-operative complication ICD Code: T81.9XXA - Unspecified complication of procedure, initial encounter Diagnosis: Principal Status: Acute Procedures Revision of external fixation, irrigation and debridement of open tibia and fibular fractures 04/09/18. Brief History - From Admission This is a 46-year-old male with no significant PMH who presented to the ER with complaints of left foot pain and drainage from multiple wounds. Previous admit 02/21-03/02/18 as a trauma after fall from scaffolding w/ open left ankle fracture , s/p Left Ankle I&D and Ex-Fix Placement by Dr. Arias on 02/21/18. States he' s noticed several ulcers on his left foot 2wks ago, was seen by Dr. Arias at that time, however now notes "bone sticking out" of one ulcer and purulent drainage. Denies fever, chills or injury. On arrival, BP 139/71, HR 99, O2 sat 97% on RA, Afebrile. WBC normal. Chemistry essentially unremarkable. INR 1.0. Ankle X-ray with external fixation of severely comminuted distal tibial and fibular fractures with abnormal widening of the ankle joint, early periosteal new bone formation, no bony destruction. On exam, patient noted to have several ulcers with bone exposure, +edema/erythema. Dr. Arias consulted, plan is for surgical intervention in am. CBC/BMP: 04/10/18 0836 04/09/18 0600 Significant Findings Laboratory Tests Test 04/10/18 08:36 04/10/18 12:39 Red Blood Count 3.97 MIL/MM3 (4.50-5.90) Hemoglobin 10.7 GM/DL (13.0-17.0) Hematocrit 32.0 % (39.0-51.0) Iron Level 52 MCG/DL (65-175) Percent Iron Saturation 19.7 % (20-50) Vancomycin Level Trough 18.6 MCG/ML (5.0-10.0) Imaging Last Impressions Wrist X-Ray 04/11/18 0000 Signed Impressions: CONCLUSION: Negative examination Lumbar Spine X-Ray 04/11/18 0000 Signed Impressions: CONCLUSION: Negative examination. Ankle X-Ray 04/08/18 0000 Signed Impressions: CONCLUSION: External fixation of severely comminuted distal tibial and fibular fractures wi th abnormal widening of the ankle joint. Early periosteal new bone formation. N o definite bony destruction identified. PE at Discharge GENERAL: Pleasant young white male in no acute distress. HEENT: PERRLA, EOMI. No scleral icterus or conjunctival pallor. No lid lag or facial droop. CARDIOVASCULAR: Regular rate and rhythm. No obvious murmurs to auscultation. No chest tenderness to palpation. RESPIRATORY: No obvious rhonchi or wheezing. Clear to auscultation. Breath sounds equal bilaterally. GASTROINTESTINAL: Abdomen soft, non-tender, nondistended. BS normal. MUSCULOSKELETAL: Extremities without clubbing, cyanosis, or edema. No obvious deformities. Pin sites are clean and dry. VAC dressing is in place over the left ankle. NEUROLOGICAL: Awake, alert and oriented x4. No focal neurologic deficits. Moving both upper and lower extremities spontaneously. Pt update on day of discharge The patient denies any fevers or chills, pain controlled. No fevers or chills reported. Patient states is getting some anxiety from current situation. Hospital Course The patient status post fall from a scaffolding with open left ankle fracture, status post left ankle I&D and ex-fix placement on 02/21/[address] Arias, admitted with erythema, edema, purulent drainage from ulcers and bone exposure. Ankle X-ray w/ external fixation and abnormal widening of ankle joint. The patient underwent a revision of the external fixation, irrigation and debridement of open tibia and fibular fractures. Treated with IV antibiotics managed by infectious disease. The patient was treated with IV vancomycin and IV cefepime. Wound cultures obtained during surgical debridement and washing are growing MSSA and Citrobacter farmeri. The pubic surgery recommended transfer to [facility] for a flap coverage with delayed fusion and lengthy external fixation for the treatment of this condition versus amputation. Dr. Ronald Good was consulted for a second opinion regarding possible treatment of the left leg with amputation. Dr. Good concurred that further conservative treatment as mentioned above had a chance of success which was questionable. He also recommended a below the knee amputation with fairly rapid wound healing and ambulation with a prosthesis. The patient was taken to the OR for amputation which he previously consented to with the orthopedic surgeon on 04/11/18, however he refused this surgical procedure prior to entering to the OR. The patient states that he wanted to have his with him. He agreed to have the surgical procedure done in 1-2 weeks once his is here. I discussed the case with Dr. Mancera from infectious disease who recommended discharging the patient on oral Levaquin for 30 days since it is still unknown the date of amputation. The patient was counseled intensively on smoking cessation. Patient was placed on Lovenox subcutaneously during hospitalization for DVT prophylaxis. Pt Condition on Discharge: Stable Discharge Disposition: Discharge Home Discharge Time: > 30 minutes Discharge Instructions DIET: Follow Instructions for: As Tolerated, No Restrictions Activities you can perform: Weight Bearing as Ortega Follow up Referrals: Orthopedics - 1 Week @ [facility] with Jason Arias MD New Medications: Lactobacillus Acidophilus (Lactobacillus Acidophilus) 1 Billion Cell Tab 1 TAB PO TIDAC for Nutritional Supplement, #30 TAB 0 Refills Levofloxacin (Levaquin) 750 Mg Tablet 750 MG PO DAILY for Infection, #30 TAB 0 Refills Calcium/Vitamin D (Oyster Shell 250 mg + Vit D Tb) 250 Mg Calcium (625 Mg)-125 Unit Tablet 250 MG PO TID for fracture, #93 TAB-CAP Hydrocodone/Acetaminophen (Hydrocodone-Acetamin 7.5-325) 7.5 Mg-325 Mg Tablet 1 TAB PO Q4H PRN for PAIN SCALE 1 TO 10, #18 TAB-CAP Continued Medications: Sennosides-Docusate Sodium (Gnp Senna Plus 8.6-50 mg) 8.6 Mg-50 Mg Tab 1 TAB PO BID for Constipation for 5 Days, #10 TAB Discontinued Medications: Oxycodone-Acetaminophen (Endocet) 10-325 mg Tab 1 TAB PO Q4H PRN for Pain Management, #60 TAB 0 Refills Herminio Betancur MD Apr 12, 2018 10:53
[2018-04-12 12:20] VITALS: BP 124/80; PULSE 57; RESP 20; TEMP 97.5; O2SAT 97
[2018-04-12 16:00] VITALS: BP 119/74; PULSE 57; RESP 20; TEMP 97.9; O2SAT 96
--- NOTE | 2018-04-12 16:31 | HHI.IDPN ---
Subjective Subjective Remarks pt was told that his only option was BKA Dr Stephen confiirmed it in 2nd opinion pt is going to be discahrged and readmitted next week 2/2 care arrangements clx grew Staph epi and citrobacter. Both S to levaquine Antibiotics vanco cefepime Allergies: Coded Allergies: No Known Allergies (Unverified , 04/08/18) Objective . Vital Signs Date Time Temp Pulse Resp B/P (MAP) Pulse Ox O2 Delivery O2 Flow Rate FiO2 04/12/18 12:20 97.5 57 20 124/80 (95) 97 04/12/18 08:00 97.5 48 20 122/76 (91) 95 04/12/18 04:00 97.9 50 22 138/75 (96) 04/11/18 20:00 97.4 78 22 129/64 (85) 95 04/11/18 16:00 98.0 66 20 136/84 (101) 97 04/12/18 04/12/18 04/13/18 15:00 23:00 07:00 # Voids 2 # Bowel Movements 1 Imaging Last Impressions Wrist X-Ray 04/11/18 0000 Signed Impressions: CONCLUSION: Negative examination Lumbar Spine X-Ray 04/11/18 0000 Signed Impressions: CONCLUSION: Negative examination. Ankle X-Ray 04/08/18 0000 Signed Impressions: CONCLUSION: External fixation of severely comminuted distal tibial and fibular fractures wi th abnormal widening of the ankle joint. Early periosteal new bone formation. N o definite bony destruction identified. Physical Exam CONSTITUTIONAL/GENERAL: This is an adequately nourished patient, in no apparent distress. TUBES/LINES/DRAINS: SKIN: No jaundice, rashes, or lesions. CARDIOVASCULAR: Regular rate and rhythm without murmurs, gallops, RESPIRATORY/CHEST: Symmetric, unlabored respirations. GASTROINTESTINAL: Abdomen soft, non-tender, nondistended. MUSCULOSKELETAL: Extremities without clubbing, cyanosis, or edema. No joint tenderness or effusion noted. No calf tenderness. No mottling or clubbing. STATUS localis: dressing , VAC and ext fix in place HInd foot very edemaotus, but perfused Drainage odorless NEUROLOGICAL: Awake and alert. Assessment & Plan Remarks sp Comminuted open left distal tibia and fibula fractures with open wound sp ORIF, infected polimicarobbial infection This is a limb threatening infection, presumed osteomylitis change vanco and cefepime to oral levaquine untill pt's surgery simone Dr Sherri [facility]on [facility] Sandy Mancera MD Apr 12, 2018 16:31
[2018-04-12] MEDS ORDERED: CEFEPIME INJ 2,000 MG in SODIUM CHLORIDE 0.9% INJ 100 ML IV SCH (19:00)
== END 2018-04-12 19:16 | disposition home or self-care (01) | DRG 857 ==
LOC: NEPC 19:34 → NEDA 22:41 → N05A 23:50
PROVIDERS: ADMIT Hospitalist; ATTEND Hospitalist
PROC: 0QBK0ZZ Excision of Left Fibula, Open Approach (ICD-10-PCS; 2018-04-09)
PROC: 0QBH0ZZ Excision of Left Tibia, Open Approach (ICD-10-PCS; 2018-04-09)
PROC: 0QW Lower Bones, Revision (ICD-10-PCS; principal; 2018-04-09 10:00)
DX: T81.4XXA Infection following a procedure, initial encounter (principal); L97.329 Non-pressure chronic ulcer of left ankle with unspecified severity; I96 Gangrene, not elsewhere classified; T84.038A Mechanical loosening of other internal prosthetic joint, initial encounter; L76.82 Other postprocedural complications of skin and subcutaneous tissue; L97.529 Non-pressure chronic ulcer of other part of left foot with unspecified severity; R60.0 Localized edema; B95.7 Other staphylococcus as the cause of diseases classified elsewhere; M54.9 Dorsalgia, unspecified; F17.200 Nicotine dependence, unspecified, uncomplicated; W12.XXXD Fall on and from scaffolding, subsequent encounter; S82.832E Other fracture of upper and lower end of left fibula, subsequent encounter for open fracture type I or II with routine healing; S82.872S Displaced pilon fracture of left tibia, sequela
CPT/HCPCS: 72100; 73110; 73600; 80048; 80053; 80202; 82728; 83540; 83550; 85025; 85027; 85610; 85730; 86403; 86850; 86900; 86901; 87015; 87070; 87077; 87102; 87116; 87176; 87186; 87205; 87206; 94150; 96374; J0131; J0690; J0692; J1100; J1580; J1644; J1885; J2250; J2270; J2405; J2765; J3010; J3370; J7030; J7040; J7050

== ENCOUNTER 2018-06-04 19:19 | Inpatient (IN) ==
--- NOTE | 2018-06-04 20:30 | ED ---
HPI General Chief Complaint: Extremity Injury, Lower Stated Complaint: left leg pain Time Seen by Provider: 06/04/18 20:10 Source: patient and family Mode of arrival: ambulatory Limitations: no limitations History of Present Illness HPI Narrative: Patient is a 38-year-old male, past medical history significant for left ankle injury approximately 4 months ago with chronic, recurrent osteomyelitis in pain. He had several pins and screws placed in it 4 months ago. He then had it debrided again several months ago for infection and states he was supposed to have an amputation but then he did not consent to it. He came back today because he is "tired of the pain" and "wants it amputated already." He has not followed up with the surgeon recently. His states that he was supposed to get a call from the medical assistant secretary within the last month to schedule an amputation and they never received a phone call. They did not call the office themselves. He denies fever and chills. He denies chest pain, dyspnea, abdominal pain, back pain, neck pain. He states that the wound has not changed in the month. complaint: ankle injury Onset (ago): month(s) Severity: severe Relieving factors: nothing Exacerbating factors: weight bearing, movement and palpation Other symptoms: none Related Data Home Medications Medication Instructions Recorded Confirmed No Known Home Medications 06/04/18 06/04/18 Allergies Allergy/AdvReac Type Severity Reaction Status Date / Time No Known Allergies Allergy Unverified 06/04/18 19:59 Review of Systems Except as stated in HPI: all other systems reviewed are negative Constitutional Denies chills and Denies fever(s) Eyes Denies blurry vision ENT Denies nasal congestion Cardiovascular Denies chest pain Respiratory Denies dyspnea Gastrointestinal Denies abdominal pain Genitourinary Denies flank pain Musculoskeletal Denies back pain and Denies neck pain Integumentary/Breasts Denies rash Neurologic Denies headache(s) Psychiatric Denies confusion PMFSH Social History Social History Substance History: No History of Abuse Second Hand Smoke Exposure: No Smoking Status: Former smoker How Often Do You Have a Drink Containing Alcohol: Never Exam Narrative Exam Narrative: GENERAL: Well-appearing male in no acute distress SKIN: Focused skin assessment warm/dry. No rash. HEAD: Atraumatic. Normocephalic. EYES: Pupils equal and round. No scleral icterus. No injection or drainage. ENT: No nasal bleeding or discharge. Mucous membranes pink and moist. NECK: Trachea midline. No JVD. CARDIOVASCULAR: Regular rate and rhythm. No murmur appreciated. RESPIRATORY: No accessory muscle use. Clear to auscultation. Breath sounds equal bilaterally. GASTROINTESTINAL: Abdomen soft, non-tender, nondistended. Hepatic and splenic margins not palpable. MUSCULOSKELETAL: No obvious deformities. No clubbing. No cyanosis. No edema. Left ankle with pins and external traction. Chronic appearing wounds to the foot with visible bone which he states has been that way for several months. No purulent drainage. NEUROLOGICAL: Awake and alert. No obvious cranial nerve deficits. Motor grossly within normal limits. Normal speech. PSYCHIATRIC: Appropriate mood and affect; insight and judgment normal. Course Hospital Course: On patient arrival labs were drawn and sent and an x-ray was ordered in addition to receiving oral pain medicine. Initial Documented Vital Signs Temperature 97.9 F 06/04/18 20:00 Pulse Rate 92 H 06/04/18 20:00 Respiratory Rate 16 06/04/18 20:00 Blood Pressure 139/75 06/04/18 20:00 Pulse Oximetry 98 06/04/18 20:00 Last Documented Vital Signs Temperature 97.9 F 06/04/18 20:00 Pulse Rate 92 H 06/04/18 20:00 Respiratory Rate 16 06/04/18 20:00 Blood Pressure 139/75 06/04/18 20:00 Pulse Oximetry 98 06/04/18 20:00 Medical Decision Making MDM Narrative Medical decision making narrative: Patient is a 38-year-old male who presents to the emergency department because he wants to have his left ankle amputated. He has had a fracture there with a chronic ulcer and external fixator in place for the last several months. He has not followed up with his surgeon recently. He states that his wound has not changed in character in at least the last month and denies fever and chills. He does have an ulceration that appears chronic and is without warmth, erythema, purulence. His vital signs are stable and he is afebrile. Labs were unremarkable with normal inflammatory markers and a normal white blood cell count. His x-ray does not show any acute changes other than healing. I spoke with Dr. Zuleta, orthopedic surgeon security incident response engineer for Dr. Arias, who agrees that this would best be managed on an outpatient basis. I spoke with the patient and informed him he needs to call Dr. Arias's office in the morning to schedule his appointment and discuss his surgical options. Patient stated understanding though frustrated, and agreed to discharge. Differential Diagnosis Differential Diagnosis: Differential diagnosis includes but is not limited to chronic osteomyelitis, acute osteomyelitis, chronic pain. Medical Records Medical records reviewed: Yes I reviewed the patient's medical records. Lab Data Lab results reviewed: Yes I reviewed the patient's lab results. Lab results narrative: No leukocytosis. Inflammatory markers are unremarkable. Result diagrams: 06/04/18 20:31 06/04/18 20:31 Lab Results 06/04/18 06/04/18 06/04/18 Range/Units 20:31 20:31 20:31 WBC 7.8 (4.0-11.0) th/mm3 RBC 5.74 (4.50-5.90) mil/mm3 Hgb 15.2 (13.0-17.0) gm/dL Hct 45.5 (39.0-51.0) % MCV 79.2 L (80.0-100.0) fL MCH 26.4 L (27.0-34.0) pg MCHC 33.3 (32.0-36.0) % RDW 13.9 (11.6-17.2) % Plt Count 249 (150-450) th/mm3 MPV 7.9 (7.0-11.0) fL ESR 4 (0-15) mm/hr Sodium 143 (136-145) meq/L Potassium 3.3 L (3.5-5.1) meq/L Chloride 105 (98-107) meq/L Carbon Dioxide 29.2 (21.0-32.0) meq/L Anion Gap 9 (5-15) meq/L BUN 8 (7-18) mg/dL Creatinine 1.18 (0.60-1.30) mg/dL Estimated GFR 68 L (>89) mL/min Random Glucose 105 (74-106) mg/dL Calcium 9.3 (8.5-10.1) mg/dL C-Reactive Protein Less than 0.29 (0.00-0.30) mg/dL Imaging Data Attestation: I personally reviewed and interpreted this imaging study as follows : My impression: No acute bony changes. Radiologist's impression: Ankle X-Ray 06/04/18 20:23 CONCLUSION: Some slow but definitely incompletely healing of the very comminuted fractures of the distal left tibia and fibula. There is soft tissue swelling and some suspected ulceration laterally. External fixation remains in place. Foot X-Ray 06/04/18 20:23 CONCLUSION: 1. Probable abnormal motion of the external fixator screw of the first metatarsal. 2. No acute fracture or subluxation of the left foot. 3. Forefoot predominant soft tissue swelling. 4. Diffuse osteopenia. Discharge Plan Discharge Disposition Patient Disposition: Discharge Home Discharge Condition Condition: Stable Discharge Order Discharge Orders: Discharge Order (Routine); Ordered 06/04/18 Ordered By: Mya Bales Discharge Details Anticipated Discharge Date: 06/04/18 Diagnosis: Chronic wound of extremity Physicians Team ED Provider: Mya Bales Primary Care Provider: Primary Care Maggie Trejo Rxs /Orders / Referrals /Forms Prescriptions: No Action No Known Home Medications RF: 0 Discharge Instructions Print Language: Albanian Patient Printed Instructions: Ankle Fracture (ED) Additional Instructions: What is my main problem? Chronic fracture with wound. What do I need to do? Call Dr. Arias's office in the morning to schedule an appointment and discuss your surgical options. Why is it important for me to do this? To have your wound and injury appropriately taken care of. Status ED Status: Ready for Discharge
--- NOTE | 2018-06-04 21:01 | XR ---
EXAM DATE: 06/04/2018 8:56 PM EDT AGE/SEX: 38 years / Male INDICATIONS: Pain in entire foot and ankle post external fixation from a fall. Patient states right below the knee amputation to be performed soon. CLINICAL DATA: This is the patient's initial encounter. Patient reports that signs and symptoms have been present for 2 months and indicates a pain score of 10/10. MEDICAL/SURGICAL HISTORY: . Fracture, left ankle. . External fixation, left ankle. COMPARISON: [facility] [place] ([facility] 04/08/2018. . FINDINGS: External fixator remains in place. Extremely comminuted fractures of the distal left tibia and fibula again noted. There are some partial healing evident, especially fibula. Alignment is unchanged. Ther e is fairly generalized soft tissue swelling around the fracture. I believe there may be some soft ti ssue ulceration laterally. No perceptible acute bone destruction seen. CONCLUSION: Some slow but definitely incompletely healing of the very comminuted fractures of the distal left tib ia and fibula. There is soft tissue swelling and some suspected ulceration laterally. External fixati on remains in place. Electronically signed by: Dutch Baez MD 06/04/2018 9:00 PM EDT
--- NOTE | 2018-06-04 21:04 | XR ---
EXAM DATE: 06/04/2018 8:55 PM EDT AGE/SEX: 38 years / Male INDICATIONS: Pain in entire foot and ankle post external fixation from a fall. Patient states right below the knee amputation to be performed soon. CLINICAL DATA: This is the patient's sequela encounter. Patient reports that signs and symptoms have been present for 2 months and indicates a pain score of 10/10. MEDICAL/SURGICAL HISTORY: . Fracture, left ankle. . External fixation, left ankle. COMPARISON: . FINDINGS: External fixation present. There is an associated screw in the distal shaft of the first metatarsal w ith some associated lucency and periosteal reaction. I don't see a fracture or subluxation of the lef t foot. Bones are diffusely osteopenic Soft tissue swelling evident of the forefoot. CONCLUSION: 1. Probable abnormal motion of the external fixator screw of the first metatarsal. 2. No acute fracture or subluxation of the left foot. 3. Forefoot predominant soft tissue swelling. 4. Diffuse osteopenia. Electronically signed by: Dutch Baez MD 06/04/2018 9:02 PM EDT
[2018-06-04 21:05] LABS: Hematocrit 45.5 % (39.0-51.0); Hemoglobin 15.2 gm/dL (13.0-17.0); Mean Corpuscular HGB Conc 33.3 % (32.0-36.0); Mean Corpuscular Hemoglobin 26.4 pg (27.0-34.0); Mean Corpuscular Volume 79.2 fL (80.0-100.0); Mean Platelet Volume 7.9 fL (7.0-11.0); Platelet Count 249 th/mm3 (150-450); Red Blood Count 5.74 mil/mm3 (4.50-5.90); Red Cell Distribution Width 13.9 % (11.6-17.2); White Blood Count 7.8 th/mm3 (4.0-11.0)
[2018-06-04 21:26] LABS: Anion Gap 9 meq/L (5-15); Blood Urea Nitrogen 8 mg/dL (7-18); Calcium 9.3 mg/dL (8.5-10.1); Carbon Dioxide 29.2 meq/L (21.0-32.0); Chloride 105 meq/L (98-107); Glomerular Filtration Rate 68 mL/min (>89); Glucose,Random 105 mg/dL (74-106); Potassium 3.3 meq/L (3.5-5.1); Sodium 143 meq/L (136-145)
[2018-06-04] MEDS ORDERED: Bisacodyl 10 MG Supp RECTAL PRN (23:36)
[2018-06-04] MEDS ORDERED: Acetaminophen 325 MG Tablet PO PRN (23:36)
--- NOTE | 2018-06-04 23:37 | P.HPIM ---
History of Present Illness Primary Care Physician: No Primary Care Physician History of Present Illness: This is a 38-year-old male with no significant PMH who presented to the ER for evaluation of left foot pain from previous injury. Pt initially admitted 02/21- as a trauma after falling from scaffolding, sustained open left ankle fx, s/p Left Ankle I&D and Ex-Fix by Dr. Arias on 02/21/18. Was re-admitted 04/08- for non-healing wounds to left ankle, Ankle X-ray w/ abnormal widening of ankle joint, s/p eval by Ortho w/ revision of Ex-Fix and I&D. Cultures +MSSA/ Citrobacter, on Vanc/Cefepime by ID. Plan for LLE BKA due to non-healing fracture, however pt "changed my mind" on the day of surgery because his was out of town. He was ultimately d/c'd with plans for outpatient follow up w / Dr. Arias to arrange for surgery, and given Levaquin PO to take until date of surgery. Pt states he never got a call from the office to schedule surgery and pt has not followed up since. Comes to ER now for severe pain, 10/10, constant, worse w/ movement. Dr. Nino consulted, recommended outpatient follow up in am w/ Dr. Arias as non-emergent intervention, however refusing to take patient home as pt w/ severe pain. On arrival, BP 139/75, HR 92, O2 sat 98% on RA, Afebrile. Chemistry essentially unremarkable. CBC unremarkable. Foot X-ray with abnormal motion of external fixator screw first metatarsal, no acute fracture or subluxation, forefoot soft tissue swelling. Ankle X-ray with slow but definitely incompletely healing of the very comminuted fractures of distal left tibia and fibula, soft tissue swelling and ulceration laterally - Diagnosis (1) Non-healing fracture (2) Intractable pain Review of Systems PAST FAMILY HISTORY: Reviewed. No h/o DM or CAD All other systems reviewed negative except as stated in HPI PMFSH - History History Provided By: Patient - Tobacco History Second Hand Smoke Exposure: No Tobacco Use In Past 30 Days: No Smoking Status: Former smoker - Alcohol History How Often Do You Have a Drink Containing Alcohol: Never - Substance Use History Substance History: No History of Abuse - Immunization History Tetanus Immunization: <5 Years Hx Influenza Vaccine This Season: No Medications and Allergies Allergies Allergy/AdvReac Type Severity Reaction Status Date / Time No Known Allergies Allergy Unverified 06/04/18 19:59 Home Medications Medication Instructions Recorded Confirmed Type No Known Home Medications 06/04/18 06/04/18 History Exam Vital signs: Vital Signs 06/04/18 20:00 Temperature 97.9 F Pulse Rate 92 H Respiratory Rate 16 Blood Pressure 139/75 Pulse Oximetry 98 Intake & Output 06/04/18 06/04/18 06/05/18 06:59 18:59 06:59 Weight 83.915 kg Narrative: PE: GENERAL: Pleasant young white male in no acute distress, but tearful from pain HEENT: PERRLA, EOMI. No scleral icterus or conjunctival pallor. No lid lag or facial droop. CARDIOVASCULAR: Regular rate and rhythm. No obvious murmurs to auscultation. No chest tenderness to palpation. RESPIRATORY: No obvious rhonchi or wheezing. Clear to auscultation. Breath sounds equal bilaterally. GASTROINTESTINAL: Abdomen soft, non-tender, nondistended. BS normal. MUSCULOSKELETAL: Extremities without clubbing, cyanosis, or edema. No obvious deformities. Left foot w/ Ex-fix in place, +edema, mild erythema, no purulent drainage noted. NEUROLOGICAL: Awake, alert and oriented x4. No focal neurologic deficits. Moving both upper and lower extremities spontaneously. Results - Labs CBC & Chem 7: 06/04/18 20:31 06/04/18 20:31 Labs: Short CBC 06/04/18 Range/Units 20:31 WBC 7.8 (4.0-11.0) th/mm3 Hgb 15.2 (13.0-17.0) gm/dL Hct 45.5 (39.0-51.0) % Plt Count 249 (150-450) th/mm3 BMP 06/04/18 20:31 Sodium 143 Potassium 3.3 L Chloride 105 Carbon Dioxide 29.2 BUN 8 Creatinine 1.18 Calcium 9.3 - Imaging Impressions Ankle X-Ray 06/04/18 20:23 CONCLUSION: Some slow but definitely incompletely healing of the very comminuted fractures of the distal left tibia and fibula. There is soft tissue swelling and some suspected ulceration laterally. External fixation remains in place. Foot X-Ray 06/04/18 20:23 CONCLUSION: 1. Probable abnormal motion of the external fixator screw of the first metatarsal. 2. No acute fracture or subluxation of the left foot. 3. Forefoot predominant soft tissue swelling. 4. Diffuse osteopenia. Caprini VTE Risk Assessment Caprini VTE Risk Assessment: No/Low Risk (score <= 1) VTE Mechanical Exception: LE injury/wound Caprini Risk Assessment Model: Point Value = 1 Point Value = 2 Point Value = 3 Point Value = 5 Age 41-60 Minor surgery BMI > 25 kg/m2 Swollen legs Varicose veins or History of unexplained or recurrent spontaneous Oral contraceptives or hormone replacement Sepsis (< 1 month) Serious lung disease, including pneumonia (< 1 month) Abnormal pulmonary function Acute myocardial infarction Congestive heart failure (< 1 month) History of inflammatory bowel disease Medical patient at bed rest Age 61-74 Arthroscopic surgery Major open surgery (> 45 min) Laparoscopic surgery (> 45 min) Malignancy Confined to bed (> 72 hours) Immobilizing plaster cast Central venous access Age >= 75 History of VTE Family history of VTE Factor V Leiden Prothrombin [id number] Lupus anticoagulant Anticardiolipin antibodies Elevated serum homocysteine Heparin-induced thrombocytopenia Other congenital or acquired thrombophilia Stroke (< 1 month) Elective arthroplasty Hip, pelvis, or leg fracture Acute spinal cord injury (< 1 month) Prophylaxis Regimen: Total Risk Factor Score Risk Level Prophylaxis Regimen 0-1 Low Early ambulation 2 Moderate Order ONE of the following: *Sequential Compression Device (SCD) *Heparin 5000 units SQ BID 3-4 Higher Order ONE of the following medications: *Heparin 5000 units SQ TID *Enoxaparin/Lovenox 40 mg SQ daily (WT < 150 kg, CrCl > 30 mL/min) *Enoxaparin/Lovenox 30 mg SQ daily (WT < 150 kg, CrCl > 10-29 mL/min) *Enoxaparin/Lovenox 30 mg SQ BID (WT < 150 kg, CrCl > 30 mL/min) AND/OR *Sequential Compression Device (SCD) 5 or more Highest Order ONE of the following medications: *Heparin 5000 units SQ TID (Preferred with Epidurals) *Enoxaparin/Lovenox 40 mg SQ daily (WT < 150 kg, CrCl > 30 mL/min) *Enoxaparin/Lovenox 30 mg SQ daily (WT < 150 kg, CrCl > 10-29 mL/min) *Enoxaparin/Lovenox 30 mg SQ BID (WT < 150 kg, CrCl > 30 mL/min) AND *Sequential Compression Device (SCD) Assessment and Plan - Assessment (1) Non-healing fracture Status: Acute (2) Intractable pain Code(s): R52 - Pain, unspecified Status: Acute - Plan A/P: 1. Left Ankle Non-Healing Fx: h/o Ankle Fx after fall from scaffolding, s/p Left Ankle I&D and Ex-Fix by Dr. Arias on 02/21/18, re-admitted 04/08-04/12/18 for non-healing wounds to left ankle, Ankle X-ray w/ abnormal widening of ankle joint, s/p revision of Ex-Fix and I&D. Cultures +MSSA/Citrobacter, on Vanc/ Cefepime by ID, plan for LLE BKA, however pt changed his mind day of surgery, was to be scheduled for outpatient surgery but hasn't followed up. Dr. Nino consulted, recommends consult for Dr. Arias in am. NPO after midnight, analgesics/antiemetics. Will continue w/ PO Levaquin 2. Intractable Pain: secondary to above, analgesics/antiemetics. 3. DVT Prophylaxis: Mechanical contraindication secondary to lower extremity wound 4. Social work for d/c planning as needed 5. Case discussed w/ ER physician at length, labs/records/imaging reviewed by me.
[2018-06-05] MEDS: Sod Chloride 0.9% Inj 1,000 ML IV.CONT SCH ×2 (01:42→08:58)
[2018-06-05] MEDS: Morphine Inj 4 MG/ML Vial IV.PUSH PRN ×5 (01:43→22:15)
[2018-06-05] MEDS: Temazepam 15 MG Capsule PO PRN ×2 (01:45→20:50)
--- NOTE | 2018-06-05 07:22 | P.PNOP ---
Subjective Interval history: s/p left distal tibfib fx with application of exfix patient known to Dr Arias Physical Exam Vital signs: Vital Signs 06/04/18 20:00 06/05/18 01:35 Temperature 97.9 F 97.6 F Pulse Rate 92 H 69 Respiratory Rate 16 16 Blood Pressure 139/75 117/89 Pulse Oximetry 98 98 Intake & Output 06/04/18 06/05/18 06/05/18 18:59 06:59 18:59 Weight 83.915 kg Narrative: LLE: +exfix. lateral ankle wound. pin sites clean Results - Labs CBC & Chem 7: 06/04/18 20:31 06/04/18 20:31 Laboratory Results - last 24 hr 06/04/18 06/04/18 06/04/18 20:31 20:31 20:31 WBC 7.8 RBC 5.74 Hgb 15.2 Hct 45.5 MCV 79.2 L MCH 26.4 L MCHC 33.3 RDW 13.9 Plt Count 249 MPV 7.9 ESR 4 Sodium 143 Potassium 3.3 L Chloride 105 Carbon Dioxide 29.2 Anion Gap 9 BUN 8 Creatinine 1.18 Estimated GFR 68 L Random Glucose 105 Calcium 9.3 C-Reactive Protein Less than 0.29 - Imaging Impressions Ankle X-Ray 06/04/18 20:23 CONCLUSION: Some slow but definitely incompletely healing of the very comminuted fractures of the distal left tibia and fibula. There is soft tissue swelling and some suspected ulceration laterally. External fixation remains in place. Foot X-Ray 06/04/18 20:23 CONCLUSION: 1. Probable abnormal motion of the external fixator screw of the first metatarsal. 2. No acute fracture or subluxation of the left foot. 3. Forefoot predominant soft tissue swelling. 4. Diffuse osteopenia. Assessment and Plan - Assessment and Plan 1) Left Distal Tibfib Fx with Exfix and chronic wound -patient know to Dr Arias -have had multiple attempts at proceeding with BKA and patient has declined surgery,. Patient was lost to follow up. -Patient aware that only feasible treatment of leg at this point is amputation -patient reports that he is ready to proceed with left BKA -The risks and benefits of surgery were discussed with the patient which include, but are not limited to, pain, blood loss, infection, wound complications, further amputation, and the risks of anesthesia. Informed consent was given for left below knee amputation. -Consents are on the chart. -Have patient sign consents today we will plan for surgery tomorrow Dr. Arias -Resume diet today -N.p.o. after midnight
[2018-06-05 08:50] LABS: Baso # (Auto) 0.1 th/mm3 (0.0-0.2); Baso % (Auto) 1.1 % (0.0-2.0); Eos # (Auto) 0.1 th/mm3 (0.0-0.4); Eos % (Auto) 2.4 % (0.0-4.0); Hematocrit 40.3 % (39.0-51.0); Hemoglobin 13.5 gm/dL (13.0-17.0); Lymph # (Auto) 2.2 th/mm3 (1.0-4.8); Mean Corpuscular HGB Conc 33.5 % (32.0-36.0); Mean Corpuscular Hemoglobin 26.5 pg (27.0-34.0); Mean Platelet Volume 7.7 fL (7.0-11.0); Mono # (Auto) 0.6 th/mm3 (0.0-0.9); Mono % (Auto) 10.5 % (0.0-8.0); Neut # (Auto) 2.4 th/mm3 (1.8-7.7); Platelet Count 200 th/mm3 (150-450); Red Blood Count 5.09 mil/mm3 (4.50-5.90); Red Cell Distribution Width 14.2 % (11.6-17.2); White Blood Count 5.3 th/mm3 (4.0-11.0)
[2018-06-05] MEDS: levoFLOXacin 750 MG Tablet PO SCH (08:56)
[2018-06-05] MEDS ORDERED: levoFLOXacin 750 MG Tablet PO SCH (09:00)
[2018-06-05] MEDS: Senna/Docusate Sodium 8.6/50 MG Tablet PO SCH ×2 (09:02→23:29)
[2018-06-05 09:21] LABS: Albumin 3.6 g/dL (3.4-5.0); Anion Gap 9 meq/L (5-15); Aspartate Aminotransferase 17 U/L (15-37); Blood Urea Nitrogen 12 mg/dL (7-18); Calcium 8.6 mg/dL (8.5-10.1); Carbon Dioxide 25.2 meq/L (21.0-32.0); Chloride 109 meq/L (98-107); Glomerular Filtration Rate 86 mL/min (>89); Glucose,Random 94 mg/dL (74-106); Potassium 3.1 meq/L (3.5-5.1); Sodium 143 meq/L (136-145)
[2018-06-05 09:22] LABS: Alanine Aminotransferase 20 U/L (12-78)
[2018-06-05 09:25] LABS: Alkaline Phosphatase 76 U/L (45-117); Total Protein 6.8 g/dL (6.4-8.2)
--- NOTE | 2018-06-05 11:44 | P.PN ---
Subjective Interval history: Follow up for nonhealing tibfib fracture with chronic wounds. The patient reports continued constant severe pain throughout the left foot and ankle. He denies fevers/chills/sweats. He is agreeable to amputation as he discussed with ortho. Denies any other medical complaints including no headache, lightheadedness, dizziness, chest pain, shortness of breath, or abdominal complaints. Physical Exam Vital signs: Vital Signs 06/04/18 20:00 06/05/18 01:35 06/05/18 08:00 Temperature 97.9 F 97.6 F 97.6 F Pulse Rate 92 H 69 66 Respiratory Rate 16 16 16 Blood Pressure 139/75 117/89 117/66 Pulse Oximetry 98 98 97 06/05/18 11:25 Temperature 97.7 F Pulse Rate 74 Respiratory Rate 16 Blood Pressure 108/76 Pulse Oximetry 97 Intake & Output 06/04/18 06/05/18 06/05/18 18:59 06:59 18:59 Intake Total 725 / 725 Balance 725 / 725 Weight 83.915 kg Intake: IV 725 / 725 NS Inj 1,000 ML @ 100 mls/hr IV 725 / 725 .CONT .Q10H [facility] Rx#:[id number] Other: Date of Last Bowel Movement 06/04/18 Narrative: GENERAL: Well-nourished, well-developed middle aged male patient in [facility]. SKIN: Warm and dry. No rash. HEENT: Normocephalic. Atraumatic. Pupils equal and round. Mucous membranes pink and moist. CARDIOVASCULAR: Regular rate and rhythm. No murmur appreciated. RESPIRATORY: No accessory muscle use. Clear to auscultation. Breath sounds equal bilaterally. GASTROINTESTINAL: Abdomen soft, non-tender, nondistended. Normoactive bowel sounds x4. MUSCULOSKELETAL: No obvious deformities. LLE with external fixation, wound at lateral ankle, covered with dressing, diffuse edema throughout the foot compared to the RLE, no significant erythema. NEUROLOGICAL: Awake and alert. No obvious cranial nerve deficits. Moving all extremities spontaneously. Normal speech. PSYCHIATRIC: Appropriate mood and affect; insight and judgment normal. Results - Labs CBC & Chem 7: 06/05/18 08:14 06/05/18 08:14 Laboratory Results - last 24 hr 06/04/18 06/04/18 06/04/18 20:31 20:31 20:31 WBC 7.8 RBC 5.74 Hgb 15.2 Hct 45.5 MCV 79.2 L MCH 26.4 L MCHC 33.3 RDW 13.9 Plt Count 249 MPV 7.9 Neut % (Auto) Lymph % (Auto) [place] % (Auto) Eos % (Auto) Baso % (Auto) Neut # (Auto) Lymph # (Auto) [place] # (Auto) Eos # (Auto) Baso # (Auto) WBC Differential Differential Comment ESR 4 Sodium 143 Potassium 3.3 L Chloride 105 Carbon Dioxide 29.2 Anion Gap 9 BUN 8 Creatinine 1.18 Estimated GFR 68 L Random Glucose 105 Calcium 9.3 Total Bilirubin AST ALT Alkaline Phosphatase C-Reactive Protein Less than 0.29 Total Protein Albumin 06/05/18 06/05/18 08:14 08:14 WBC 5.3 RBC 5.09 Hgb 13.5 Hct 40.3 MCV 79.0 L MCH 26.5 L MCHC 33.5 RDW 14.2 Plt Count 200 MPV 7.7 Neut % (Auto) 45.0 Lymph % (Auto) 41.0 [place] % (Auto) 10.5 H Eos % (Auto) 2.4 Baso % (Auto) 1.1 Neut # (Auto) 2.4 Lymph # (Auto) 2.2 [place] # (Auto) 0.6 Eos # (Auto) 0.1 Baso # (Auto) 0.1 WBC Differential . Differential Comment Auto diff final ESR Sodium 143 Potassium 3.1 L Chloride 109 H Carbon Dioxide 25.2 Anion Gap 9 BUN 12 Creatinine 0.97 Estimated GFR 86 L Random Glucose 94 Calcium 8.6 Total Bilirubin 0.3 AST 17 ALT 20 Alkaline Phosphatase 76 C-Reactive Protein Total Protein 6.8 Albumin 3.6 - Imaging Impressions Ankle X-Ray 06/04/18 20:23 CONCLUSION: Some slow but definitely incompletely healing of the very comminuted fractures of the distal left tibia and fibula. There is soft tissue swelling and some suspected ulceration laterally. External fixation remains in place. Foot X-Ray 06/04/18 20:23 CONCLUSION: 1. Probable abnormal motion of the external fixator screw of the first metatarsal. 2. No acute fracture or subluxation of the left foot. 3. Forefoot predominant soft tissue swelling. 4. Diffuse osteopenia. Assessment and Plan - Assessment (1) Non-healing fracture Status: Acute (2) Intractable pain Code(s): R52 - Pain, unspecified Status: Acute - Plan 38-year-old male with no significant PMH who presented to the ER for evaluation of left foot pain from previous injury. Pt initially admitted 02/21-03/02/18 as a trauma after falling from scaffolding, sustained open left ankle fx, s/p Left Ankle I&D and Ex-Fix by Dr. Arias on 02/21/18. Was re-admitted 04/08-04/12/18 for non-healing wounds to left ankle, Ankle X-ray w/ abnormal widening of ankle joint, s/p eval by Ortho w/ revision of Ex-Fix and I&D. Cultures +MSSA/ Citrobacter, on Vanc/Cefepime by ID. Plan for LLE BKA due to non-healing fracture, however pt "changed my mind" on the day of surgery. Returns with worsening pain/wounds. Left Ankle Non-Healing Fx: h/o Ankle Fx after fall from scaffolding. -Consulted orthopedics, plan for left BKA tomorrow 06/06 -Continue with po Levaquin -NPO after midnight -Pain control with [place] and IV morphine prn Intractable Pain: secondary to above. -Continue analgesics/antiemetics as needed DVT Prophylaxis: Mechanical contraindication secondary to lower extremity wound. Avoid chemical prophylaxis with upcoming surgery. Discharge Planning: Going to OR tomorrow 06/06 for left BKA.
[2018-06-06] MEDS: Morphine Inj 4 MG/ML Vial IV.PUSH PRN ×5 (03:43→22:51)
[2018-06-06] MEDS ORDERED: Chlorhexidine Gluconate 2% 1 Pack (2 Cloths) TOPICAL SCH (05:30)
[2018-06-06] MEDS ORDERED: Metoprolol Tartrate 25 MG Tablet PO SCH (05:30)
[2018-06-06] MEDS ORDERED: Sodium Chlor 0.9% Inj 500 ML IV.SIG SCH (06:00)
--- NOTE | 2018-06-06 07:19 | P.PNOP ---
Subjective Interval history: s/p left ankle fracture with application of fixator and wound infection Physical Exam Vital signs: Vital Signs 06/05/18 08:00 06/05/18 11:25 06/05/18 13:24 Temperature 97.6 F 97.7 F 97.7 F Pulse Rate 66 74 64 Respiratory Rate 16 16 16 Blood Pressure 117/66 108/76 109/72 Pulse Oximetry 97 97 96 06/05/18 15:54 06/05/18 20:00 06/05/18 23:57 Temperature 97.3 F L 98.4 F 97.9 F Pulse Rate 61 57 L 56 L Respiratory Rate 16 16 17 Blood Pressure 107/70 112/76 109/61 Pulse Oximetry 100 100 99 Intake & Output 06/05/18 06/06/18 06/06/18 18:59 06:59 18:59 Intake Total 725 / 725 1000 / 1000 Balance 725 / 725 1000 / 1000 Intake: IV 725 / 725 1000 / 1000 NS Inj 1,000 ML @ 100 mls/hr IV 725 / 725 1000 / 1000 .CONT .Q10H [facility] Rx#:[id number] Other: Date of Last Bowel Movement 06/04/18 06/04/18 Narrative: LLE: Wound the lateral aspect of the ankle. External fixator in place. Results - Labs CBC & Chem 7: 06/05/18 08:14 06/05/18 08:14 Laboratory Results - last 24 hr 06/05/18 06/05/18 06/05/18 08:14 08:14 08:14 WBC 5.3 RBC 5.09 Hgb 13.5 Hct 40.3 MCV 79.0 L MCH 26.5 L MCHC 33.5 RDW 14.2 Plt Count 200 MPV 7.7 Neut % (Auto) 45.0 Lymph % (Auto) 41.0 [place] % (Auto) 10.5 H Eos % (Auto) 2.4 Baso % (Auto) 1.1 Neut # (Auto) 2.4 Lymph # (Auto) 2.2 [place] # (Auto) 0.6 Eos # (Auto) 0.1 Baso # (Auto) 0.1 WBC Differential . Differential Comment Auto diff final Sodium 143 Potassium 3.1 L Chloride 109 H Carbon Dioxide 25.2 Anion Gap 9 BUN 12 Creatinine 0.97 Estimated GFR 86 L Random Glucose 94 Calcium 8.6 Magnesium 2.1 Total Bilirubin 0.3 AST 17 ALT 20 Alkaline Phosphatase 76 Total Protein 6.8 Albumin 3.6 Assessment and Plan - Assessment and Plan 1) Left Distal Tibfib Fx with Exfix and chronic wound -patient know to Dr Arias -have had multiple attempts at proceeding with BKA and patient has declined surgery,. Patient was lost to follow up. -Patient aware that only feasible treatment of leg at this point is amputation -patient reports that he is ready to proceed with left BKA -The risks and benefits of surgery were discussed with the patient which include, but are not limited to, pain, blood loss, infection, wound complications, further amputation, and the risks of anesthesia. Informed consent was given for left below knee amputation. -Surgery today with Dr. Arias
[2018-06-06] MEDS: levoFLOXacin 750 MG Tablet PO SCH (08:20)
--- NOTE | 2018-06-06 08:27 | P.PN ---
Subjective Interval history: Follow up for nonhealing tibfib fracture with chronic wounds. The patient reports continued pain and swelling of the left foot and ankle. He is going for BKA today. He denies any other medical complaints including no fever/chills , lightheadedness, chest pain, shortness of breath, or abdominal complaints. No bowel movement since his arrival. Physical Exam Vital signs: Vital Signs 06/05/18 11:25 06/05/18 13:24 06/05/18 15:54 Temperature 97.7 F 97.7 F 97.3 F L Pulse Rate 74 64 61 Respiratory Rate 16 16 16 Blood Pressure 108/76 109/72 107/70 Pulse Oximetry 97 96 100 06/05/18 20:00 06/05/18 23:57 06/06/18 07:56 Temperature 98.4 F 97.9 F 97.8 F Pulse Rate 57 L 56 L 55 L Respiratory Rate 16 17 18 Blood Pressure 112/76 109/61 122/82 Pulse Oximetry 100 99 100 Intake & Output 06/05/18 06/06/18 06/06/18 18:59 06:59 18:59 Intake Total 725 / 725 1000 / 1000 Balance 725 / 725 1000 / 1000 Intake: IV 725 / 725 1000 / 1000 NS Inj 1,000 ML @ 100 mls/hr IV 725 / 725 1000 / 1000 .CONT .Q10H [facility] Rx#:[id number] Other: Date of Last Bowel Movement 06/04/18 06/04/18 Narrative: GENERAL: Well-nourished, well-developed middle aged male patient in [facility]. SKIN: Warm and dry. No rash. HEENT: Normocephalic. Atraumatic. CARDIOVASCULAR: Regular rate and rhythm. No murmur appreciated. RESPIRATORY: No accessory muscle use. Clear to auscultation. Breath sounds equal bilaterally. GASTROINTESTINAL: Abdomen soft, non-tender, nondistended. Normoactive bowel sounds x4. MUSCULOSKELETAL: LLE with external fixation, wound at lateral ankle, covered with dressing, diffuse edema throughout the foot compared to the RLE, no significant erythema. NEUROLOGICAL: Awake and alert. No obvious cranial nerve deficits. Moving all extremities spontaneously. Normal speech. PSYCHIATRIC: Appropriate mood and affect; insight and judgment normal. Results - Labs CBC & Chem 7: 06/05/18 08:14 06/05/18 08:14 Laboratory Results - last 24 hr 06/05/18 06/05/18 06/05/18 08:14 08:14 08:14 WBC 5.3 RBC 5.09 Hgb 13.5 Hct 40.3 MCV 79.0 L MCH 26.5 L MCHC 33.5 RDW 14.2 Plt Count 200 MPV 7.7 Neut % (Auto) 45.0 Lymph % (Auto) 41.0 [place] % (Auto) 10.5 H Eos % (Auto) 2.4 Baso % (Auto) 1.1 Neut # (Auto) 2.4 Lymph # (Auto) 2.2 [place] # (Auto) 0.6 Eos # (Auto) 0.1 Baso # (Auto) 0.1 WBC Differential . Differential Comment Auto diff final Sodium 143 Potassium 3.1 L Chloride 109 H Carbon Dioxide 25.2 Anion Gap 9 BUN 12 Creatinine 0.97 Estimated GFR 86 L Random Glucose 94 Calcium 8.6 Magnesium 2.1 Total Bilirubin 0.3 AST 17 ALT 20 Alkaline Phosphatase 76 Total Protein 6.8 Albumin 3.6 - Imaging Ankle X-Ray 06/04/18 20:23 CONCLUSION: Some slow but definitely incompletely healing of the very comminuted fractures of the distal left tibia and fibula. There is soft tissue swelling and some suspected ulceration laterally. External fixation remains in place. Foot X-Ray 06/04/18 20:23 CONCLUSION: 1. Probable abnormal motion of the external fixator screw of the first metatarsal. 2. No acute fracture or subluxation of the left foot. 3. Forefoot predominant soft tissue swelling. 4. Diffuse osteopenia. Assessment and Plan - Assessment (1) Non-healing fracture Status: Acute (2) Intractable pain Code(s): R52 - Pain, unspecified Status: Acute - Plan 38-year-old male with no significant PMH who presented to the ER for evaluation of left foot pain from previous injury. Pt initially admitted 02/21-03/02/18 as a trauma after falling from scaffolding, sustained open left ankle fx, s/p Left Ankle I&D and Ex-Fix by Dr. Arias on 02/21/18. Was re-admitted 04/08-04/12/18 for non-healing wounds to left ankle, Ankle X-ray w/ abnormal widening of ankle joint, s/p eval by Ortho w/ revision of Ex-Fix and I&D. Cultures +MSSA/ Citrobacter, on Vanc/Cefepime by ID. Plan for LLE BKA due to non-healing fracture, however pt "changed my mind" on the day of surgery. Returns with worsening pain/wounds. Left Ankle Non-Healing Fx: h/o Ankle Fx after fall from scaffolding. -Consulted orthopedics, plans for left BKA today 06/06 -Continue with po Levaquin for now, can likely discontinue following amputation -NPO for surgery -Pain control with [place] and IV morphine prn Intractable Pain: secondary to above. -Continue analgesics/antiemetics as needed DVT Prophylaxis: Mechanical contraindication secondary to lower extremity wound. Avoid chemical prophylaxis with upcoming surgery. Discharge Planning: Going to OR today 06/06 for left BKA. Further disposition to follow. Will discharge when cleared by ortho and after PT evaluation and recommendations.
[2018-06-06] MEDS ORDERED: Bupivacaine/Epinephrine Inj 0.25% 50 ML Vial ONE (10:01)
[2018-06-06] MEDS ORDERED: Succinylcholine Inj 100 MG/5 ML Syringe IV.PUSH ONE (12:00)
[2018-06-06] MEDS ORDERED: Glycopyrrolate Inj 1 MG/5 ML Syringe IV.PUSH ONE (12:00)
[2018-06-06] MEDS ORDERED: Lidocaine PF 1% Inj 5 ML Syringe INFILTRATN ONE (12:00)
[2018-06-06] MEDS ORDERED: Neostigmine Inj 5 MG/5 ML Syringe IV.PUSH ONE (12:00)
[2018-06-06] MEDS ORDERED: Post-op Orders (for Pharmacy) OTHER STA (12:17)
--- NOTE | 2018-06-06 12:28 | P.OP ---
- Preoperative Diagnosis (1) Subacute osteomyelitis, left tibia and fibula (2) Chronic wound of extremity Date of procedure: 06/06/18 Procedure: Left below-knee amputation Anesthesia: GETA Surgeon: Jason Pinon MD Final Inspector: OCTAVIA Pineda PA-C The surgical procedure was assisted by my physician learning support assistant. My P.A. presence was necessary throughout this case for the manipulation and positioning of the surgical extremity. My P.A. was assisting me throughout the duration of this procedure. The skill set of a physician learning support assistant was medically necessary to complete this procedure. During the surgical case the certified surgical technologist was working at the back table and the physician learning support assistant was directly assisting me. Operation and Findings: Mykel is well-known to me from previous treatment of severely comminuted left distal tibia and fibula fractures. He developed a large area of full-thickness skin necrosis with exposed bone and infection. I have had multiple discussions with patient regarding treatment options including below knee amputation versus reconstructive surgery to try and salvage his foot. After detailed discussion of the risk and benefits of each option, informed consent was obtained preoperatively and operative site was marked. Patient was brought to the OR and placed on the OR table. IV sedation and GETA were administered by anesthesia and IV antibiotics were given. The Operative leg was prepped with alcohol, followed by Hibiclens and draped in the usual sterile fashion. Time out procedure was performed. The procedure began with a standard incision for below-knee amputation. A long posterior flap was maintained. The subcutaneous tissue was dissected with Bovie. The tibia and fibula were now exposed and the anterior compartment was incised. At this point, the soft tissue was retracted. The tibia was cut with an oscillating saw. The fibula was now cut 1 cm shorter than the tibia. At this point, the tourniquet was inflated. The posterior flap was now incised sharply. The foot was now removed from the field. At this point, attention was turned to hemostasis. The anterior and posterior tibial vessels were identified. An anterior tibial and posterior tibial artery and vein were now ligated with silk suture ties. The posterior tibial nerve was identified. The nerve sheath was injected with a 0.25% Marcaine with epinephrine for pain relief. The nerve was transected proximal to the tibial cut. At this point, the deep posterior compartment was excised. The anterior compartment, lateral compartment, and deep posterior compartments were all excised. The gastroc and soleus muscles were left intact. The edges of the bone were smoothed with a rasp. The tourniquet was released and hemostasis was confirmed. A drain was placed deep. The gastrocsoleus fascia was now sutured to the anterior tibial fascia with #1 Vicryl. The subcutaneous tissues were closed with 3-0 Vicryl and skin was closed with 3-0 nylon. Sterile dressings were applied and CKS was applied. The patient was awakened and transferred to recovery in stable condition. Needle and sponge counts were correct.
[2018-06-06] MEDS ORDERED: *Meperidine Inj 25 MG/ML Vial PERIprocedural Use ONLY ONE (13:07)
[2018-06-06] MEDS ORDERED: *morphine SULFATE 10 MG/ML PERIprocedure ONLY ONE (13:12)
[2018-06-06] MEDS ORDERED: fentaNYL Citrate Inj 100 MCG/2 ML Ampul ONE (13:16)
[2018-06-06] MEDS ORDERED: HYDROmorphone PF Inj 2 MG/ML Vial ONE (13:19)
[2018-06-06] MEDS: Sod Chloride 0.9% Inj 1,000 ML IV.CONT SCH (19:41)
[2018-06-06] MEDS: ceFAZolin Inj 2,000 MG in Sodium Chlor 0.9% Inj 80 ML IV.SIG SCH (19:42)
[2018-06-06] MEDS: Senna/Docusate Sodium 8.6/50 MG Tablet PO SCH (20:22)
[2018-06-07] MEDS: Morphine Inj 4 MG/ML Vial IV.PUSH PRN ×10 (00:32→23:43)
[2018-06-07] MEDS: ceFAZolin Inj 2,000 MG in Sodium Chlor 0.9% Inj 80 ML IV.SIG SCH ×3 (01:41→17:37)
--- NOTE | 2018-06-07 07:23 | P.PNOP ---
Subjective Interval history: POD 1 s/p left BKA doing well. reports leg is sore but overall resting comfortably Physical Exam Vital signs: Vital Signs 06/06/18 07:56 06/06/18 13:03 06/06/18 13:15 Temperature 97.8 F 98.1 F Pulse Rate 55 L 70 73 Respiratory Rate 18 18 20 Blood Pressure 122/82 137/91 H 141/87 H Pulse Oximetry 100 100 99 06/06/18 13:30 06/06/18 13:45 06/06/18 14:00 Temperature Pulse Rate 59 L 59 L 54 L Respiratory Rate 18 18 12 Blood Pressure 135/88 142/95 H 148/85 H Pulse Oximetry 99 98 98 06/06/18 14:30 06/06/18 15:00 06/06/18 16:00 Temperature 97.8 F 97.5 F L Pulse Rate 57 L 57 L 58 L Respiratory Rate 14 14 18 Blood Pressure 147/90 H 134/88 133/85 Pulse Oximetry 96 96 96 06/06/18 16:43 06/06/18 17:41 06/06/18 18:24 Temperature Pulse Rate Respiratory Rate 18 18 18 Blood Pressure Pulse Oximetry 06/06/18 20:00 06/06/18 21:34 06/06/18 21:39 Temperature 98.3 F Pulse Rate 92 H Respiratory Rate 18 16 16 Blood Pressure 133/76 Pulse Oximetry 98 06/06/18 22:54 06/06/18 22:55 06/07/18 00:00 Temperature 98.1 F Pulse Rate 82 Respiratory Rate 16 16 18 Blood Pressure 127/74 Pulse Oximetry 98 06/07/18 01:46 06/07/18 01:56 06/07/18 03:01 Temperature Pulse Rate Respiratory Rate 16 16 16 Blood Pressure Pulse Oximetry 06/07/18 04:00 06/07/18 05:00 Temperature 98.2 F Pulse Rate 59 L Respiratory Rate 18 16 Blood Pressure 128/80 Pulse Oximetry 98 Intake & Output 06/06/18 06/07/18 06/07/18 18:59 06:59 18:59 Intake Total 1340 / 1340 100 / 100 Output Total 140 / 140 60 / 60 Balance 1200 / 1200 40 / 40 Weight 83.1 kg Intake: IV 100 / 100 Ancef Inj 2,000 MG In NS Inj 80 100 / 100 ML @ 200 mls/hr IV.SIG Q8H [facility] Rx#:[id number] Oral 240 / 240 Anesthesia Amount 1100 / 1100 Output: Estimated Blood Loss 100 / 100 Wound Drainage 40 / 40 60 / 60 Left Calf REENA Drain 40 / 40 60 / 60 Other: # Voids 1 2 Date of Last Bowel Movement 06/04/18 Narrative: LLE: dressings clean and dry. intact. +drain. +knee brace Results - Labs CBC & Chem 7: 06/05/18 08:14 06/05/18 08:14 Assessment and Plan - Assessment and Plan 1) Left Below Knee AMputation - POD 1 -NWB -maintain dressings -will plan on first dressing change at bedside by myself or [place] on POD 3 -maintain drain -knee brace at all times -plan for home Tuesday once dressing change done -f/u with [place] or [facility] in 2-3 weeks [facility] Prescription Drug Monitoring Database has been queried and verified prior to prescribing the controlled substance. Acute pain exception. This patient has normal, predicted, physiological, and time limited response to an adverse mechanical stimulus associated with surgery, trauma, or acute illness as described in my notes. There is a lack of alternative treatment options other than to include the prescribed narcotic treatment for this condition.
[2018-06-07] MEDS: levoFLOXacin 750 MG Tablet PO SCH (09:08)
[2018-06-07] MEDS: Senna/Docusate Sodium 8.6/50 MG Tablet PO SCH ×2 (09:09→22:29)
--- NOTE | 2018-06-07 10:37 | P.PNIM ---
Physical Exam Vital signs: Vital Signs 06/06/18 13:03 06/06/18 13:15 06/06/18 13:30 Temperature 98.1 F Pulse Rate 70 73 59 L Respiratory Rate 18 20 18 Blood Pressure 137/91 H 141/87 H 135/88 Pulse Oximetry 100 99 99 06/06/18 13:45 06/06/18 14:00 06/06/18 14:30 Temperature Pulse Rate 59 L 54 L 57 L Respiratory Rate 18 12 14 Blood Pressure 142/95 H 148/85 H 147/90 H Pulse Oximetry 98 98 96 06/06/18 15:00 06/06/18 16:00 06/06/18 16:43 Temperature 97.8 F 97.5 F L Pulse Rate 57 L 58 L Respiratory Rate 14 18 18 Blood Pressure 134/88 133/85 Pulse Oximetry 96 96 06/06/18 17:41 06/06/18 18:24 06/06/18 20:00 Temperature 98.3 F Pulse Rate 92 H Respiratory Rate 18 18 18 Blood Pressure 133/76 Pulse Oximetry 98 06/06/18 21:34 06/06/18 21:39 06/06/18 22:54 Temperature Pulse Rate Respiratory Rate 16 16 16 Blood Pressure Pulse Oximetry 06/06/18 22:55 06/07/18 00:00 06/07/18 01:46 Temperature 98.1 F Pulse Rate 82 Respiratory Rate 16 18 16 Blood Pressure 127/74 Pulse Oximetry 98 06/07/18 01:56 06/07/18 03:01 06/07/18 04:00 Temperature 98.2 F Pulse Rate 59 L Respiratory Rate 16 16 18 Blood Pressure 128/80 Pulse Oximetry 98 06/07/18 05:00 06/07/18 08:00 Temperature 98.1 F Pulse Rate 61 Respiratory Rate 16 12 Blood Pressure 133/73 Pulse Oximetry 96 Intake & Output 06/06/18 06/07/18 06/07/18 18:59 06:59 18:59 Intake Total 1340 / 1340 200 / 200 100 / 100 Output Total 140 / 140 60 / 60 Balance 1200 / 1200 140 / 140 100 / 100 Weight 83.1 kg Intake: IV 200 / 200 100 / 100 Ancef Inj 2,000 MG In NS Inj 80 200 / 200 100 / 100 ML @ 200 mls/hr IV.SIG Q8H [facility] Rx#:[id number] Oral 240 / 240 Anesthesia Amount 1100 / 1100 Output: Estimated Blood Loss 100 / 100 Wound Drainage 40 / 40 60 / 60 Left Calf REENA Drain 40 / 40 60 / 60 Other: # Voids 1 2 Date of Last Bowel Movement 06/04/18 06/06/18 Results - Labs CBC & Chem 7: 06/05/18 08:14 06/05/18 08:14 Assessment and Plan - Assessment (1) Non-healing fracture Status: Acute (2) Intractable pain Code(s): R52 - Pain, unspecified Status: Acute - Plan 38-year-old male with no significant PMH who presented to the ER for evaluation of left foot pain from previous injury. Pt initially admitted 02/21-03/02/18 as a trauma after falling from scaffolding, sustained open left ankle fx, s/p Left Ankle I&D and Ex-Fix by Dr. Arias on 02/21/18. Was re-admitted 04/08-04/12/18 for non-healing wounds to left ankle, Ankle X-ray w/ abnormal widening of ankle joint, s/p eval by Ortho w/ revision of Ex-Fix and I&D. Cultures +MSSA/ Citrobacter, on Vanc/Cefepime by ID. Plan for LLE BKA due to non-healing fracture, however pt "changed my mind" on the day of surgery. Returns with worsening pain/wounds. Left Ankle Non-Healing Fx: h/o Ankle Fx after fall from scaffolding. -Consulted orthopedics, plans for left BKA today 06/06 -Continue with po Levaquin for now, can likely discontinue following amputation -NPO for surgery -Pain control with [place] and IV morphine prn Intractable Pain: secondary to above. -Continue analgesics/antiemetics as needed DVT Prophylaxis: Mechanical contraindication secondary to lower extremity wound. Avoid chemical prophylaxis with upcoming surgery. Discharge Planning:
--- NOTE | 2018-06-07 14:56 | P.PNIM ---
Subjective Interval history: f/u fracture and pain First post surgery today, no overnight events, no fever. Pain is moderate to severe. No shortness of breath or chest pain. Physical Exam Vital signs: Vital Signs 06/06/18 15:00 06/06/18 16:00 06/06/18 16:43 Temperature 97.8 F 97.5 F L Pulse Rate 57 L 58 L Respiratory Rate 14 18 18 Blood Pressure 134/88 133/85 Pulse Oximetry 96 96 06/06/18 17:41 06/06/18 18:24 06/06/18 20:00 Temperature 98.3 F Pulse Rate 92 H Respiratory Rate 18 18 18 Blood Pressure 133/76 Pulse Oximetry 98 06/06/18 21:34 06/06/18 21:39 06/06/18 22:54 Temperature Pulse Rate Respiratory Rate 16 16 16 Blood Pressure Pulse Oximetry 06/06/18 22:55 06/07/18 00:00 06/07/18 01:46 Temperature 98.1 F Pulse Rate 82 Respiratory Rate 16 18 16 Blood Pressure 127/74 Pulse Oximetry 98 06/07/18 01:56 06/07/18 03:01 06/07/18 04:00 Temperature 98.2 F Pulse Rate 59 L Respiratory Rate 16 16 18 Blood Pressure 128/80 Pulse Oximetry 98 06/07/18 05:00 06/07/18 08:00 06/07/18 12:00 Temperature 98.1 F 97.6 F Pulse Rate 61 68 Respiratory Rate 16 12 13 Blood Pressure 133/73 136/79 Pulse Oximetry 96 94 L Intake & Output 06/06/18 06/07/18 06/07/18 18:59 06:59 18:59 Intake Total 1340 / 1340 200 / 200 100 / 100 Output Total 140 / 140 60 / 60 Balance 1200 / 1200 140 / 140 100 / 100 Weight 83.1 kg Intake: IV 200 / 200 100 / 100 Ancef Inj 2,000 MG In NS Inj 80 200 / 200 100 / 100 ML @ 200 mls/hr IV.SIG Q8H [facility] Rx#:[id number] Oral 240 / 240 Anesthesia Amount 1100 / 1100 Output: Estimated Blood Loss 100 / 100 Wound Drainage 40 / 40 60 / 60 Left Calf REENA Drain 40 / 40 60 / 60 Other: # Voids 1 2 Date of Last Bowel Movement 08/05/18 08/07/18 Narrative: GENERAL: Not in distress CARDIOVASCULAR: Regular rate and rhythm. No murmur appreciated. RESPIRATORY: No accessory muscle use. Clear to auscultation. Breath sounds equal bilaterally. GASTROINTESTINAL: Abdomen soft, non-tender, nondistended. Normoactive bowel sounds x4. MUSCULOSKELETAL: Left lower extremity dressings in place. NEUROLOGICAL: Awake and alert. No obvious cranial nerve deficits. Moving all extremities spontaneously. Normal speech. PSYCHIATRIC: Appropriate mood and affect; insight and judgment normal. Results - Labs CBC & Chem 7: 06/05/18 08:14 06/05/18 08:14 Assessment and Plan - Assessment (1) Non-healing fracture Status: Acute (2) Intractable pain Code(s): R52 - Pain, unspecified Status: Acute - Plan 38-year-old male with no significant PMH who presented to the ER for evaluation of left foot pain from previous injury. Pt initially admitted 02/21-03/02/18 as a trauma after falling from scaffolding, sustained open left ankle fx, s/p Left Ankle I&D and Ex-Fix by Dr. Arias on 02/21/18. Was re-admitted 04/08-04/12/18 for non-healing wounds to left ankle, Ankle X-ray w/ abnormal widening of ankle joint, s/p eval by Ortho w/ revision of Ex-Fix and I&D. Cultures +MSSA/ Citrobacter, on Vanc/Cefepime by ID. Plan for LLE BKA due to non-healing fracture, however pt "changed my mind" on the day of surgery. Returns with worsening pain/wounds. Left Ankle Non-Healing Fx: h/o Ankle Fx after fall from scaffolding. -Consulted orthopedics, status post left BKA 06/07/2018. -Continue with po Levaquin for now -Pain control with [place] and IV morphine prn, change her dressings on Tuesday and then discharge with home health care. Intractable Pain: secondary to above. -Continue analgesics/antiemetics as needed DVT Prophylaxis: Mechanical contraindication secondary to lower extremity wound. Avoid chemical prophylaxis with upcoming surgery.
--- NOTE | 2018-06-07 14:57 | P.DCO ---
- Physical Therapy Order: Evaluate and treat - Home Health Nursing Order: Medication education-adverse effect, Wound care and dressing changes, Nursing assessment with vital signs - Certification I have seen patient Mykel Ortega on 06/07/18. My clinical findings support the need for the requested home health care services because: Deconditioned with increased weakness, Limited ability to care for self I certify that my clinical findings support that this patient is homebound because: Post-op weakness
[2018-06-07] MEDS: Sod Chloride 0.9% Inj 1,000 ML IV.CONT SCH (16:36)
[2018-06-08] MEDS: Morphine Inj 4 MG/ML Vial IV.PUSH PRN ×9 (01:15→22:22)
[2018-06-08] MEDS: ceFAZolin Inj 2,000 MG in Sodium Chlor 0.9% Inj 80 ML IV.SIG SCH ×2 (01:16→10:59)
--- NOTE | 2018-06-08 08:03 | P.PNOP ---
Subjective Interval history: Still having some difficulty with pain control with no new complaints Physical Exam Vital signs: Vital Signs 06/07/18 12:00 06/07/18 16:00 06/07/18 20:00 Temperature 97.6 F 98 F 98.6 F Pulse Rate 68 65 73 Respiratory Rate 13 13 18 Blood Pressure 136/79 130/75 150/83 H Pulse Oximetry 94 L 95 97 06/07/18 22:29 06/07/18 22:30 06/08/18 00:00 Temperature 98.7 F Pulse Rate 70 Respiratory Rate 16 16 20 Blood Pressure 148/88 H Pulse Oximetry 97 06/08/18 00:39 06/08/18 02:46 06/08/18 02:59 Temperature Pulse Rate Respiratory Rate 16 16 16 Blood Pressure Pulse Oximetry 06/08/18 04:00 Temperature 98.5 F Pulse Rate 62 Respiratory Rate 20 Blood Pressure 138/93 H Pulse Oximetry 94 L Intake & Output 06/07/18 06/08/18 06/08/18 18:59 06:59 18:59 Intake Total 1200 / 1200 480 / 480 Output Total 220 / 220 1210 / 1210 Balance 980 / 980 -730 / -730 Intake: IV 1200 / 1200 NS Inj 1,000 ML @ 100 mls/hr IV 1000 / 1000 .CONT .Q10H [facility] Rx#:[id number] Ancef Inj 2,000 MG In NS Inj 80 200 / 200 ML @ 200 mls/hr IV.SIG Q8H [facility] Rx#:[id number] Oral 480 / 480 Output: Urine 200 / 200 1200 / 1200 Wound Drainage 20 / 20 10 / 10 Left Calf REENA Drain 20 / 20 10 / 10 Other: # Voids 4 Date of Last Bowel Movement 06/06/18 06/06/18 # Bowel Movements 0 Narrative: Left lower extremity: Clean dry dressings intact with knee immobilizer in place. Drain intact. Results - Labs CBC & Chem 7: 06/05/18 08:14 06/05/18 08:14 Assessment and Plan - Assessment and Plan 1) Left Below Knee Amputation - POD 2 -NWB -maintain dressings -will plan on first dressing change and drain removal at bedside by myself or [facility] on POD 3 -maintain drain -knee brace at all times -plan for home Tuesday once dressing change done -f/u with [place] or [facility] in 2-3 weeks [facility] Prescription Drug Monitoring Database has been queried and verified prior to prescribing the controlled substance. Acute pain exception. This patient has normal, predicted, physiological, and time limited response to an adverse mechanical stimulus associated with surgery, trauma, or acute illness as described in my notes. There is a lack of alternative treatment options other than to include the prescribed narcotic treatment for this condition.
[2018-06-08] MEDS: Senna/Docusate Sodium 8.6/50 MG Tablet PO SCH ×3 (08:33→20:19)
[2018-06-08] MEDS: levoFLOXacin 750 MG Tablet PO SCH (08:33)
--- NOTE | 2018-06-08 13:20 | P.PNIM ---
Subjective Interval history: Still complaining of severe left lower extremity pain, no nausea or vomiting, no bowel movements yet. Good oral intake. Physical Exam Vital signs: Vital Signs 06/07/18 16:00 06/07/18 20:00 06/07/18 22:29 Temperature 98 F 98.6 F Pulse Rate 65 73 Respiratory Rate 13 18 16 Blood Pressure 130/75 150/83 H Pulse Oximetry 95 97 06/07/18 22:30 06/08/18 00:00 06/08/18 00:39 Temperature 98.7 F Pulse Rate 70 Respiratory Rate 16 20 16 Blood Pressure 148/88 H Pulse Oximetry 97 06/08/18 02:46 06/08/18 02:59 06/08/18 04:00 Temperature 98.5 F Pulse Rate 62 Respiratory Rate 16 16 20 Blood Pressure 138/93 H Pulse Oximetry 94 L 06/08/18 08:00 06/08/18 12:00 Temperature 97.7 F 97.6 F Pulse Rate 57 L 65 Respiratory Rate 20 20 Blood Pressure 138/87 115/74 Pulse Oximetry 96 96 Intake & Output 06/07/18 06/08/18 06/08/18 18:59 06:59 18:59 Intake Total 1200 / 1200 480 / 480 100 / 100 Output Total 220 / 220 1210 / 1210 1000 / 1000 Balance 980 / 980 -730 / -730 -900 / -900 Intake: IV 1200 / 1200 100 / 100 NS Inj 1,000 ML @ 100 mls/hr IV 1000 / 1000 .CONT .Q10H [facility] Rx#:[id number] Ancef Inj 2,000 MG In NS Inj 80 200 / 200 100 / 100 ML @ 200 mls/hr IV.SIG Q8H [facility] Rx#:[id number] Oral 480 / 480 Output: Urine 200 / 200 1200 / 1200 1000 / 1000 Wound Drainage 20 / 20 10 / 10 Left Calf REENA Drain 20 / 20 10 / 10 Other: # Voids 4 Date of Last Bowel Movement 06/06/18 06/06/18 06/06/18 # Bowel Movements 0 Narrative: GENERAL: Not in distress CARDIOVASCULAR: Regular rate and rhythm. No murmur appreciated. RESPIRATORY: No accessory muscle use. Clear to auscultation. Breath sounds equal bilaterally. GASTROINTESTINAL: Abdomen soft, non-tender, nondistended. Normoactive bowel sounds x4. MUSCULOSKELETAL: Left lower extremity dressings in place. REENA drain in place. NEUROLOGICAL: Awake and alert. No obvious cranial nerve deficits. Moving all extremities spontaneously. Normal speech. PSYCHIATRIC: Appropriate mood and affect; insight and judgment normal. Results - Labs CBC & Chem 7: 06/05/18 08:14 06/05/18 08:14 Assessment and Plan - Assessment (1) Chronic wound of extremity Status: Acute (2) Subacute osteomyelitis, left tibia and fibula Code(s): M86.262 - Subacute osteomyelitis, left tibia and fibula Status: Acute (3) Non-healing fracture Status: Acute (4) Intractable pain Code(s): R52 - Pain, unspecified Status: Acute - Plan 38-year-old male with no significant PMH who presented to the ER for evaluation of left foot pain from previous injury. Pt initially admitted 02/21-03/02/18 as a trauma after falling from scaffolding, sustained open left ankle fx, s/p Left Ankle I&D and Ex-Fix by Dr. Arias on 02/21/18. Was re-admitted 04/08-04/12/18 for non-healing wounds to left ankle, Ankle X-ray w/ abnormal widening of ankle joint, s/p eval by Ortho w/ revision of Ex-Fix and I&D. Cultures +MSSA/ Citrobacter, on Vanc/Cefepime by ID. Plan for LLE BKA due to non-healing fracture, however pt "changed my mind" on the day of surgery. Returns with worsening pain/wounds. Left Ankle Non-Healing Fx: h/o Ankle Fx after fall from scaffolding. -Consulted orthopedics, status post left BKA 06/07/2018. -Continue with po Levaquin for now -Pain control, uncontrolled, start Oramorph, continue Spencer, start oxycodone for severe pain. Change dressings tomorrow and possibly discharge with home health care. Intractable Pain: secondary to above. -Continue analgesics/antiemetics as needed DVT Prophylaxis: Mechanical contraindication secondary to lower extremity wound. Avoid chemical prophylaxis with upcoming surgery.
[2018-06-08] MEDS ORDERED: oxyCODONE/Acetaminophen 10/325 Tablet PO PRN (13:52)
[2018-06-08] MEDS: Morphine Sulfate 15 MG SR Tablet PO SCH ×2 (15:55→23:24)
[2018-06-09] MEDS: Morphine Inj 4 MG/ML Vial IV.PUSH PRN ×3 (03:12→11:29)
--- NOTE | 2018-06-09 07:15 | P.PNOP ---
Subjective Interval history: POD 3 s/p Left BKA states pain in leg. Physical Exam Vital signs: Vital Signs 06/08/18 08:00 06/08/18 12:00 06/08/18 16:00 Temperature 97.7 F 97.6 F 97.4 F L Pulse Rate 57 L 65 76 Respiratory Rate 20 20 20 Blood Pressure 138/87 115/74 114/71 Pulse Oximetry 96 96 76 L 06/08/18 20:00 06/08/18 20:18 06/08/18 20:19 Temperature 98 F Pulse Rate 78 Respiratory Rate 18 18 18 Blood Pressure 121/73 Pulse Oximetry 97 06/08/18 21:46 06/08/18 22:26 06/08/18 23:54 Temperature Pulse Rate Respiratory Rate 18 18 18 Blood Pressure Pulse Oximetry 06/09/18 00:00 06/09/18 02:18 06/09/18 03:00 Temperature 98.2 F Pulse Rate 65 Respiratory Rate 18 18 18 Blood Pressure 119/84 Pulse Oximetry 97 06/09/18 04:00 Temperature 97.8 F Pulse Rate 68 Respiratory Rate 18 Blood Pressure 128/71 Pulse Oximetry 95 Intake & Output 06/08/18 06/09/18 06/09/18 18:59 06:59 18:59 Intake Total 460 / 460 Output Total 1262 / 1262 Balance -802 / -802 Intake: IV 100 / 100 Ancef Inj 2,000 MG In NS Inj 80 100 / 100 ML @ 200 mls/hr IV.SIG Q8H [facility] Rx#:[id number] Oral 360 / 360 Output: Urine 1252 / 1252 Wound Drainage Left Calf REENA Drain Other: Date of Last Bowel Movement 06/06/18 06/06/18 Narrative: LLE: dressings clean and dry.intact. +drain. +knee brace. dressing removed and incision visualized. clean and dry. intact. minimal swelling. no drainage. no erythema. Results - Labs CBC & Chem 7: 06/05/18 08:14 06/05/18 08:14 Assessment and Plan - Assessment and Plan 1) Left Below Knee Amputation - POD 3 -NWB -dressing changed at bedside -drain removed -knee brace at all times -ortho clear for DC home with C -will need daily dressing changes with xeroform/primapore dressing. -f/u with [place] [facility] in 2-3 weeks [facility] Prescription Drug Monitoring Database has been queried and verified prior to prescribing the controlled substance. Acute pain exception. This patient has normal, predicted, physiological, and time limited response to an adverse mechanical stimulus associated with surgery, trauma, or acute illness as described in my notes. There is a lack of alternative treatment options other than to include the prescribed narcotic treatment for this condition.
--- NOTE | 2018-06-09 07:18 | P.DCO ---
- Physical Therapy Canvas Knee Splint: At all times Left Lower Extremity Weight Bearing: Non-weight bearing, No strengthening, No quad sets Left Lower Extremity Range of Motion: No ROM - Nursing Dressing changes: Daily dressing change, Xeroform, Coverderm/Primapore - Certification Need for Home Health services: I have seen patient Mykel Ortega on 06/09/18. My clinical findings support the need for the requested home health care services because: Need for Home Health Services: Limited mobility due to disease progression Homebound Certification: I certify that my clinical findings support that this patient is homebound because: Homebound Certification: Post-op weakness
[2018-06-09] MEDS: levoFLOXacin 750 MG Tablet PO SCH (08:26)
[2018-06-09] MEDS: Morphine Sulfate 15 MG SR Tablet PO SCH (08:26)
[2018-06-09] MEDS: Senna/Docusate Sodium 8.6/50 MG Tablet PO SCH ×2 (08:26→22:32)
--- NOTE | 2018-06-09 11:05 | P.PNIM ---
Subjective Interval history: pain is still not controlled, no fever or chills, dressings changed today Physical Exam Vital signs: Vital Signs 06/08/18 12:00 06/08/18 16:00 06/08/18 20:00 Temperature 97.6 F 97.4 F L 98 F Pulse Rate 65 76 78 Respiratory Rate 20 20 18 Blood Pressure 115/74 114/71 121/73 Pulse Oximetry 96 76 L 97 06/08/18 20:18 06/08/18 20:19 06/08/18 21:46 Temperature Pulse Rate Respiratory Rate 18 18 18 Blood Pressure Pulse Oximetry 06/08/18 22:26 06/08/18 23:54 06/09/18 00:00 Temperature 98.2 F Pulse Rate 65 Respiratory Rate 18 18 18 Blood Pressure 119/84 Pulse Oximetry 97 06/09/18 02:18 06/09/18 03:00 06/09/18 04:00 Temperature 97.8 F Pulse Rate 68 Respiratory Rate 18 18 18 Blood Pressure 128/71 Pulse Oximetry 95 06/09/18 07:20 Temperature 97.6 F Pulse Rate 57 L Respiratory Rate 16 Blood Pressure 118/72 Pulse Oximetry 95 Intake & Output 06/08/18 06/09/18 06/09/18 18:59 06:59 18:59 Intake Total 460 / 460 440 / 440 Output Total 1262 / 1262 Balance -802 / -802 430 / 430 Intake: IV 100 / 100 Ancef Inj 2,000 MG In NS Inj 80 100 / 100 ML @ 200 mls/hr IV.SIG Q8H [facility] Rx#:[id number] Oral 360 / 360 Tube Feeding 440 / 440 Output: Urine 1252 / 1252 Wound Drainage Left Calf REENA Drain Other: Date of Last Bowel Movement 06/06/18 06/06/18 06/06/18 Narrative: LLE: dressings clean and dry.intact. +drain. +knee brace. dressing removed and incision visualized. clean and dry. intact. minimal swelling. no drainage. no erythema. GENERAL: Not in distress CARDIOVASCULAR: Regular rate and rhythm. No murmur appreciated. RESPIRATORY: No accessory muscle use. Clear to auscultation. Breath sounds equal bilaterally. GASTROINTESTINAL: Abdomen soft, non-tender, nondistended. Normoactive bowel sounds x4. MUSCULOSKELETAL: Left lower extremity dressings in place. Clean and dry, REENA drain removed NEUROLOGICAL: Awake and alert. No obvious cranial nerve deficits. Moving all extremities spontaneously. Normal speech. PSYCHIATRIC: Appropriate mood and affect; insight and judgment normal. Results - Labs CBC & Chem 7: 06/05/18 08:14 06/05/18 08:14 Assessment and Plan - Assessment (1) Chronic wound of extremity Status: Acute (2) Subacute osteomyelitis, left tibia and fibula Code(s): M86.262 - Subacute osteomyelitis, left tibia and fibula Status: Acute (3) Non-healing fracture Status: Acute (4) Intractable pain Code(s): R52 - Pain, unspecified Status: Acute - Plan 38-year-old male with no significant PMH who presented to the ER for evaluation of left foot pain from previous injury. Pt initially admitted 02/21-03/02/18 as a trauma after falling from scaffolding, sustained open left ankle fx, s/p Left Ankle I&D and Ex-Fix by Dr. Arias on 02/21/18. Was re-admitted 04/08-04/12/18 for non-healing wounds to left ankle, Ankle X-ray w/ abnormal widening of ankle joint, s/p eval by Ortho w/ revision of Ex-Fix and I&D. Cultures +MSSA/ Citrobacter, on Vanc/Cefepime by ID. s/p LLE BKA due to non-healing fracture Left Ankle Non-Healing Fx: h/o Ankle Fx after fall from scaffolding. -Consulted orthopedics, status post left BKA 06/07/2018. -Continue with po Levaquin until 06/12 -Pain control, wean from morphine, cont oxycodone for pain. Change dressings daily per orthopedics. No payer for [facility], d/w CM, will provide walker and apply for whhelchair. D/W Intractable Pain: secondary to above. -Continue analgesics/antiemetics as needed DVT Prophylaxis: Mechanical contraindication secondary to lower extremity wound. Discharge tomorrow if pain controlled and supplies in place
[2018-06-09] MEDS: oxyCODONE/Acetaminophen 10/325 Tablet PO PRN ×2 (15:23→19:55)
[2018-06-09] MEDS: Temazepam 15 MG Capsule PO PRN (23:59)
[2018-06-10] MEDS: oxyCODONE/Acetaminophen 10/325 Tablet PO PRN ×4 (07:05→14:34)
--- NOTE | 2018-06-10 08:17 | P.PNOP ---
Subjective Interval history: POd 4 s/p left BKA doing well. no changes Physical Exam Vital signs: Vital Signs 06/09/18 12:00 06/09/18 16:00 06/09/18 19:43 Temperature 97.7 F 98.7 F Pulse Rate 84 18 L Respiratory Rate 18 18 19 Blood Pressure 106/72 106/62 Pulse Oximetry 97 96 06/09/18 20:00 06/10/18 00:00 06/10/18 03:39 Temperature 97.8 F 97.8 F Pulse Rate 70 64 Respiratory Rate 18 18 Blood Pressure 103/62 110/71 Pulse Oximetry 96 98 06/10/18 04:00 Temperature 97.8 F Pulse Rate 66 Respiratory Rate 18 Blood Pressure 119/73 Pulse Oximetry 94 L Intake & Output 06/09/18 06/10/18 06/10/18 18:59 06:59 18:59 Intake Total 440 / 440 1280 / 1280 442 / 442 Output Total 310 / 310 900 / 900 Balance 130 / 130 380 / 380 442 / 442 Weight 83 kg Intake: Oral 1280 / 1280 442 / 442 Tube Feeding 440 / 440 Output: Urine 300 / 300 900 / 900 Wound Drainage Left Calf REENA Drain Other: # Voids 2 Date of Last Bowel Movement 06/06/18 06/06/18 Narrative: LLE: dressing changed at bedside. incison clean and dry. no erythema or drainage. Results - Labs CBC & Chem 7: 06/05/18 08:14 06/05/18 08:14 Assessment and Plan - Problem List (1) Below knee amputation status Code(s): Z89.519 - Acquired absence of unspecified leg below knee Status: Acute - Assessment and Plan 1) Left Below Knee Amputation - POD 4 -NWB -dressing changed at bedside -drain removed -knee brace at all times -ortho clear for DC home with [facility] -will need daily dressing changes with xeroform/primapore dressing. -f/u with [place] or [facility] in 2-3 weeks [facility] Prescription Drug Monitoring Database has been queried and verified prior to prescribing the controlled substance. Acute pain exception. This patient has normal, predicted, physiological, and time limited response to an adverse mechanical stimulus associated with surgery, trauma, or acute illness as described in my notes. There is a lack of alternative treatment options other than to include the prescribed narcotic treatment for this condition.
[2018-06-10] MEDS: Senna/Docusate Sodium 8.6/50 MG Tablet PO SCH (10:41)
[2018-06-10] MEDS: levoFLOXacin 750 MG Tablet PO SCH (10:41)
--- NOTE | 2018-06-10 10:53 | P.DS ---
Date of admission: 06/05/18 11:18 Primary care physician: No Primary Care Physician Brief History from admission: This is a 38-year-old male with no significant PMH who presented to the ER for evaluation of left foot pain from previous injury. Pt initially admitted 02/21- as a trauma after falling from scaffolding, sustained open left ankle fx, s/p Left Ankle I&D and Ex-Fix by Dr. Arias on 02/21/18. Was re-admitted 04/08- for non-healing wounds to left ankle, Ankle X-ray w/ abnormal widening of ankle joint, s/p eval by Ortho w/ revision of Ex-Fix and I&D. Cultures +MSSA/ Citrobacter, on Vanc/Cefepime by ID. Plan for LLE BKA due to non-healing fracture, however pt "changed my mind" on the day of surgery because his was out of town. He was ultimately d/c'd with plans for outpatient follow up w / Dr. Arias to arrange for surgery, and given Levaquin PO to take until date of surgery. Pt states he never got a call from the office to schedule surgery and pt has not followed up since. Comes to ER now for severe pain, 10/10, constant, worse w/ movement. Dr. Nino consulted, recommended outpatient follow up in am w/ Dr. Arias as non-emergent intervention, however refusing to take patient home as pt w/ severe pain. On arrival, BP 139/75, HR 92, O2 sat 98% on RA, Afebrile. Chemistry essentially unremarkable. CBC unremarkable. Foot X-ray with abnormal motion of external fixator screw first metatarsal, no acute fracture or subluxation, forefoot soft tissue swelling. Ankle X-ray with slow but definitely incompletely healing of the very comminuted fractures of distal left tibia and fibula, soft tissue swelling and ulceration laterally DS: Diagnosis - Discharge Diagnosis (1) Chronic wound of extremity Status: Acute (2) Subacute osteomyelitis, left tibia and fibula Status: Acute (3) Non-healing fracture Status: Acute (4) Intractable pain Status: Acute DS: Medications - Discharge Medications Prescriptions: gabapentin [Neurontin] 300 mg PO TID #90 cap hydrocodone-acetaminophen [Imboden] 1 tab PO Q4H #40 tab meloxicam [Mobic] 15 mg PO DAILY #14 tab DS: Summary Hospital Course: 38-year-old male with no significant PMH who presented to the ER for evaluation of left foot pain from falling from scaffolding. Pt initially admitted 02/21-03/02 as a trauma after falling from scaffolding, sustained open left ankle fx, s/ p Left Ankle I&D and Ex-Fix by Dr. Arias on 02/21/18. Was re-admitted 04/08- for non-healing wounds to left ankle, Ankle X-ray w/ abnormal widening of ankle joint, s/p eval by Ortho w/ revision of Ex-Fix and I&D. Cultures +MSSA/ Citrobacter, on Vanc/Cefepime by ID. s/p LLE BKA due to non-healing fracture. Consulted orthopedics, status post left BKA 06/07/2018. Patient finish his course of antibiotics, pain was controlled. He was cleared for discharge by orthopedics. Patient ideally would need to be discharged with home health care for dressing changes however patient does not have any pair source and lives outside of the [facility]. I Jaylen was previously provided, we will provide a walker this admission. Dressings will also be provided, dressing changes were demonstrated to the patient's . Patient will be discharged home today to follow-up with Dr. Arias in 3 weeks. - Time Spent with Patient Total time spent providing and/or coordinating discharge services: Greater than 30 minutes - Quality: VTE Deep Vein Thrombosis/Pulmonary Embolism Present on Admission: No Exam Vital signs: Vital Signs 06/09/18 12:00 06/09/18 16:00 06/09/18 19:43 Temperature 97.7 F 98.7 F Pulse Rate 84 18 L Respiratory Rate 18 18 19 Blood Pressure 106/72 106/62 Pulse Oximetry 97 96 06/09/18 20:00 06/10/18 00:00 06/10/18 03:39 Temperature 97.8 F 97.8 F Pulse Rate 70 64 Respiratory Rate 18 18 18 Blood Pressure 103/62 110/71 Pulse Oximetry 96 98 06/10/18 04:00 06/10/18 08:00 Temperature 97.8 F 98 F Pulse Rate 66 68 Respiratory Rate 18 20 Blood Pressure 119/73 119/72 Pulse Oximetry 94 L 98 Intake & Output 06/09/18 06/10/18 06/10/18 18:59 06:59 18:59 Intake Total 440 / 440 1280 / 1280 442 / 442 Output Total 310 / 310 900 / 900 Balance 130 / 130 380 / 380 442 / 442 Weight 83 kg Intake: Oral 1280 / 1280 442 / 442 Tube Feeding 440 / 440 Output: Urine 300 / 300 900 / 900 Wound Drainage Left Calf REENA Drain Other: # Voids 2 Date of Last Bowel Movement 06/06/18 06/06/18 Narrative: S> Discussed with . Dressing changes were demonstrated to them. Afebrile, pain is moderately controlled. O> GENERAL: Not in distress CARDIOVASCULAR: Regular rate and rhythm. No murmur appreciated. RESPIRATORY: No accessory muscle use. Clear to auscultation. Breath sounds equal bilaterally. GASTROINTESTINAL: Abdomen soft, non-tender, nondistended. Normoactive bowel sounds x4. MUSCULOSKELETAL: Left lower extremity dressings in place. Clean and dry, REENA drain removed NEUROLOGICAL: Awake and alert. No obvious cranial nerve deficits. Moving all extremities spontaneously. Normal speech. PSYCHIATRIC: Appropriate mood and affect; insight and judgment normal. Results Procedures completed during hospitalization: Left BKA Completed studies during hospitalization: Pending at discharge 06/06/18 12:17 Surgical [PTH] Routine - Impressions ITS Impressions Ankle X-Ray 06/04/18 20:23 CONCLUSION: Some slow but definitely incompletely healing of the very comminuted fractures of the distal left tibia and fibula. There is soft tissue swelling and some suspected ulceration laterally. External fixation remains in place. Foot X-Ray 06/04/18 20:23 CONCLUSION: 1. Probable abnormal motion of the external fixator screw of the first metatarsal. 2. No acute fracture or subluxation of the left foot. 3. Forefoot predominant soft tissue swelling. 4. Diffuse osteopenia. Discharge Plan - Discharge Disposition Patient Disposition: W/Home Health Service - Discharge Condition Condition: Stable - Discharge Order Discharge Orders: Discharge Order (Routine); Ordered 06/10/18 Ordered By: Chary Fonseca Orthopedic Clear for Discharge (Routine); Ordered 06/09/18 Ordered By: Mookie Pretty - Discharge Details Anticipated Discharge Date: 06/10/18 Discharge Comment: d/c home - Physicians Team Primary Care Provider: Primary Care Physici,No Attending Provider: Chary Fonseca Other Providers: Jason Arias MD ; Ralf Nino MD
== END 2018-06-10 16:11 | disposition home health service (06) ==
LOC: NEPE 19:19 → NEDA 19:19 → NEPGCP 06-05 01:29 → N06 06-06 08:43 → N05 06-06 13:47
PROVIDERS: ADMIT Hospitalist; ATTEND Hospitalist